=== PATIENT | female | born 1935 | race Caucasian/White ===

== ENCOUNTER → 2023-09-23 12:42 | Outpatient (REF) | payer OTHER, SELFPAY | LOC: HWRAD 12:42 | PROVIDERS: ATTENDING PHYSICIAN Student in an Organized Health Care Education/Training Program; FAMILY PHYSICIAN Family Medicine | DX: M25.561 Pain in right knee (principal) | CPT/HCPCS: 73700 ==

== ENCOUNTER 2023-12-29 11:59 | Inpatient (IN) | payer OTHER, SELFPAY ==
[2023-12-29] VITALS (10 sets, daily range): BP systolic 138–180; BP diastolic 57–88
[2023-12-29 10:14] LABS: Glucose - Point of Care 186 mg/dl (70-99)
--- NOTE | 2023-12-29 10:20 | ED.CVA ---
History of Present Illness
General
Chief Complaint: CVA/TIA Symptoms
Source: patient and ambulance crew
Time Seen by Provider: 12/29/23 10:19
Onset of Stroke Symptoms
Onset of symptoms known: Yes
Date of onset of symptoms: 12/29/23
Time of onset of symptoms: 09:30
History of Present Illness
History of Present Illness:
This patient is an 88-year-old female who, as per medics, was noted to be her normal self this morning. Then, just prior to 9:30 AM, patient was noted to have a fall. Medics states she did not strike her head but did suffer a skin abrasion to the
elbow. However, after the fall, patient was noted by to have difficulty speaking and weakness, and medics were called. Upon their arrival, patient was noted to be slightly drowsy associated with difficulty speaking and slurred speech.
They also noted bilateral leg weakness and arm weakness left greater than right. Upon arrival here, patient is awake but drowsy. She denies any specific complaints but overall is a poor historian. In review of medication list, patient takes
aspirin but otherwise no anticoagulation/antiplatelet agents. She does have a history of a CVA in the past as well as seizure disorder for which she takes Keppra and Lamictal. Upon my evaluation, neurologist also at bedside given patient a stroke
alert.
Past History
Past History
ED Past Medical History: GERD, Seizures (On Kepra) and Other (Scoliosis)
ED Past Surgical History: Appendectomy, Gynecological (Hysterectomy) and Orthopedic
Social History
Tobacco: Non-smoker
Alcohol: None
Drug: None
Living: fpc
Phy Exam
Physical Exam
Physical Exam:
GENERAL: awake but sl drowsy, in no apparent distress
EYE: pupils equal and reactive
NECK: Supple, no significant adenopathy.
ENT: o/p clr, mmm.
CARDIAC: Regular rate and rhythm .
LUNGS: Clear breath sounds bilaterally, no acute respiratory distress, no wheezes/rales/rhonchi
ABDOMEN: Soft, without focal tenderness, no r/g
NEUROLOGICAL: awake but drowsy, no visual field cut, no facial droop, does not perform f t n, general extrem ity weakness (nonfocal), speech clear but speaks in a very soft voice
SKIN: Warm and dry, skin intact.
MUSCULOSKELETAL: No edema, well perfused.
PSYCH: Normal and appropriate interaction.
Scores
NIH Stroke Score
Level of Consciousness: 0 - Alert
LOC Questions: 2-Neither correct
LOC Commands: 0-Performs both correctly
Best Horizontal Gaze: 0-Normal
Visual Dorantes: 0=Normal, no visual loss
Facial Palsy: 0=Normal, symmetrical
Motor - Right Arm: 1=Drift < 10 seconds
Motor - Left Arm: 1=Drift < 10 seconds
Motor - Right Le-Drift < 5 seconds
Motor - Left Le-Drift < 5 seconds
Limb Ataxia: 0-Absent
Sensation: 0-Normal
Best Language: 0-No aphasia
Dysarthria: 0-Normal
Extinction and Inattention: 0-No abnormality
Total Score:: 6
Course
Orders/Labs/Results
Orders:
Orders
12/29/23 10:16
Electrocardiogram (*1) Urgent
Reason for Study: TIA/Stroke
CT Head W/o Cont STROKE ALERT Stat
Comment:
Reason For Exam: stroke alert
EKG- Treatment ONCE
12/29/23 10:20
CT Head/Neck Ang STROKE ALERT Urgent
Comment:
Reason For Exam: weakness
Cardiac Monitoring- Treatment ONCE
Pulse Ox/cont/shift [RESP] Stat
Quantity: 1
12/29/23 10:21
EEG Routine Routine
Neurology Consult:: DR. LAWRENCE
12/29/23 10:46
Clopidogrel Bisulfate [Plavix] 300 mg PO NOW STA
12/29/23 10:55
Echo 2D MMode Color/Doppler Routine
Reason for Study: Thrombotic source for stroke-like sxs
NIH Stroke Scale As Directed
Directions: Per protocol
Neurological Checks As Directed
Frequency: Per unit guidelines
12/29/23 10:56
Occupational Therapy Consult [Ot Eval And Treat] Routine
Physical Therapy Consult [Pt Eval And Treat] Routine
Activity Level: Out of Bed- Chair
Speech Therapy Eval & Treat Routine
Treatment: Aphasia
12/29/23 10:58
Complete Blood Count/No Diff Urgent
Comprehensive Metabolic Panel Urgent
Troponin I Urgent
12/29/23 11:43
Admit/Transfer Patient As Directed
Co-Sign Provider:
Level of Care: Inpatient admission
Assign to:: Telemetry
Physician / Group: Hospitalist
Diagnosis: Stroke
Reason for Telemetry: CVA/TIA
Date to Stop Telemetry: 01/01/24
Time to Stop Telemetry: 11:00
Reason for Hospitalization: .
Expected length of stay greater than two midnights?: Yes
ELOS- Estimated Length of Stay in days: 3
I certify the patient meets the requirements for IP care: Yes
12/29/23 11:45
Code Status As Directed
Resuscitation Status: Do not resuscitate
Reached after discussion with pt or family/Healthcare POA: Yes
DNR Bracelet Application ONCE
12/29/23 15:07
Famotidine [Pepcid] 20 mg PO DAILYPRN PRN
12/29/23 15:07
Consult Neurology [NEUROLOGY CONSULT] Routine
Consulting Provider: Danny Ward
Was physician already notified: Yes
Reason for consult: Stroke
DX Deep Vein Thrombosis Video Routine
12/29/23 20:00
Heparin 5,000 units SC Q12
06/24/24 22:00
Atorvastatin [Lipitor] 20 mg PO HS
lamotrigine See Dose Instructions PO HS
12/30/23 08:00
Aspirin Low Dose EC [Aspir Low (Enteric Coated)] 81 mg PO DAILY
Clopidogrel Bisulfate [Plavix] 75 mg PO DAILY
Furosemide [Lasix] 20 mg PO DAILY
12/30/23 08:16
Cardiovascular Evaluation IN AM
Glycohemoglobin (HgbA1c) IN AM
12/30/23 10:58
Lamotrigine (Lamictal) [S] Urgent
Comment: ADD ON
01/01/24 11:00
DC Protocol for Telemetry ONCE
Abnormal Lab Results
12/29/23 12/29/23
10:13 10:58
RBC 2.61 L 10^6/uL
(4.20-5.40)
Hgb 9.3 L g/dL
(12.0-16.0)
Hct 26.9 L %
(37.0-47.0)
MCV 103.1 H fL
(81.0-99.0)
MCH 35.6 H pg
(27.0-31.0)
RDW 16.2 H %
(11.5-14.5)
Creatinine 0.4 L mg/dL
(0.6-1.0)
Glucose 154 H mg/dl
(70-99)
Total Bilirubin 1.7 H mg/dl
(0.2-1.3)
AST 40 H U/L
(14-36)
Total Protein 5.7 L g/dl
(6.3-8.2)
POC Glucose 186 H mg/dl
(70-99)
12/29/23 10:58
12/29/23 10:58
Vital Signs
Initial and Last Documented VS:
Initial Vital Signs
BP
172/74
12/29/23 10:12
Last Documented Vital Signs
Temp Pulse Resp BP Pulse Ox
97.8 F 74 20 106/46 93
12/31/23 11:59 12/31/23 11:59 12/31/23 11:59 12/31/23 11:59 12/31/23 11:59
*Critical Care Note
Total Time (30-74mins, 75-104mins- exclusive of procedures): 30
Update Note
Update Note:
Patient presents to the Emergency Department with ____status post fall
Number and Complexity of Problems Addressed at the Encounter
� Chronic conditions affecting care:
� Acute Exacerbation and/or Progression of Chronic Illness:
� Differential Diagnosis includes: But not limited to TIA, stroke, seizure, electrolyte disorder, etc.
Amount and/or Complexity of Data to be Reviewed and Analyzed
� I performed an independent evaluation of and my interpretation is:
EKG:
CT:Has a 1 cm probably subacute non-hemorrhagic lacunar infarct in the external capsule and putamen on the left
Xrays:
Laboratory Studies:
Other:
� Review of other/old records reveals: Patient was admitted March [address] and at [address] showed a subacute left frontal parietal lobe infarct without hemorrhage. Carotid ultrasound at that time was unremarkable for
stenosis as well as her 2D echocardiogram that did not show significant wall motion abnormality EF was 61%.
� Clinical information was obtained by an independent historian: EMS, awaiting arrival, daughter who is now at bedside
� Prescriptions/Medications Considered but not given:
� Further testing considered but not performed:
Risk of Complications and/or Morbidity or Mortality of Patient Management
� Social determinants of health affecting care:
� Discussion with other providers (PCP, Hospitalists, Consultants, etc):
� Escalation of care including admission/observation vs risk of discharge considered: 10:26 AM in discussion with neurology patient unlikely/not a TNK candidate given lack of focality to her symptoms. CTA ordered. I do suspect
that patient might have suffered a strike to the head given the superficial abrasion noted on the right infraorbital area.
1047am subacute infarct noted on CT. Case again d/w neuro (Dr Levy), confirms pt not a tnk canidate, recommends 300 mg plavix and we will admit, tiger text to hospitaliist. Will monitor bp closely and treat accordingly only for sbp >180.
1228 patient noted to be having intermittent twitching of left side of face� This is unusual for her. Daughter who is at bedside states that she has never witnessed her having a seizure so she is unsure what her typical seizure is like. Concerned
that this may represent seizure activity, 1 of Ativan ordered. Hospitalist aware
ED Attending Note
-
Portions of this chart may have been created with voice recognition software.� Occasional wrong word or��sound alike� substitutions may have occurred due to the inherent limitations of voice recognition software.
Discharge Plan
Departure
Patient Disposition: Admit
Date of Disposition: 12/29/23
Time of Disposition: 10:50
Admit to: Telemetry
Presentation/result/management discussed w/ accepting MD/DO: Hospitalist
Condition: Fair
Discharge Problem:
cva
Interventions
Interventions:
*Risk Screen - Suicide Last Done: 12/29/23 11:00
*General Assessment Last Done: 12/29/23 11:00
*Neglect/Abuse Screening Last Done: 12/29/23 11:00
ED- Fall Risk Assessment Last Done: 12/29/23 10:15
*ED COVID-19 Vaccine History Last Done: 12/29/23 10:57
*Nursing Disposition Last Done: 12/29/23 15:05
ED- Pulmonary Assessment Last Done: 12/29/23 11:30
ED- Neurological Assessment Last Done: 12/29/23 10:30
ED- Cardiac Assessment Last Done: 12/29/23 10:15
ED Swallowing Screen Last Done: 12/29/23 11:15
Discharge Date and Time
Discharge Date/Time: 12/29/23 15:05
--- NOTE | 2023-12-29 10:21 | CON.NEURO4 ---
Consultation - Neurology 4
-
CONSULTING PHYSICIAN: Shirley Ward
REFERRING PHYSICIAN: ER
DICTATED BY: Shirley Ward
DATE/TIME OF REQUEST: 12/29/23
DATE/TIME OF CONSULTATION: 12/29/23
Reason for Consultation: Stroke alert, fall, confused mental status and generalized weakness
History of Present Illness:
Patient is an 88 year old woman with history of epilepsy, ischemic stroke, cognitive impairment presenting to hospital as stroke alert after a fall showing abnormal mental status and generalized weakness. Patient has a history of suspected
ischemic infarction after hospitalization in March 2023, was treated with aspirin and clopidogrel for 21 days following this. She is on aspirin 81 mg daily at home. For seizures she has been on Lamotrigine as well as Levetiracetam.
This morning patient had woken up in her usual state of health and around 930AM had had a fall. Had abrasion of right arm and also small abrasion near right eyebrow. After this she showed drowsiness, abnormal speech, generalized weakness.
Patient underwent CT and CTA of the had and neck in ED, was not given IV thrombolytics.
In ED patient developed change in mental status to the point of no longer obeying commands along with subtle small amplitude movements of the face bilaterally concerning for potential seizure. She was given 1 mg IV Lorazepam and 2000 mg IV
Levetiracetam.
Past Medical History: Epilepsy, mild cognitive impairment, ischemic stroke, GERD, osteoporosis, iron deficiency anemia, osteoporosis, PVD, IBS, scoliosis,
Surgical History: HAILY/BSO, cholecystectomy, appendectomy, R TSA, R ISHAN, R shoulder surgery
Family History: Non-contributory
Social History: Patient living at home with her , no tobacco or alcohol
Review of Symptoms:
Unable to obtain with patient's mental status
Physical Exam:
Elderly woman appears chronically ill and frail appearing, right forehead abrasion and abrasion on right eyebrow, cervical spine with no abnormality to palpation, oropharynx clear, no neck masses, heart rate regular, breathing unlabored, abdomen
soft non tender, no lower extremity edema or rashes seen
Neurologic Examination:
MS: Patient is awake, drowsy, she says her name and 's name, will obey simple commands consistently, sticks out tongue, wiggles feet, does not show 2 fingers or thumbs up to command. Patient has eyes open and tracks throughout the room.
CN: Pupils are 3 mm equal round and reactive to light bilaterally, visual salvador intact to confrontation bilaterally, smile is symmetric, voice is weak and soft and mildly dysarthric, tongue midline
Motor/sensory examination: Diffuse symmetric weakness, patient shows downward drift of the arms in a symmetric manner with arms held above her head in the air. Legs show downward drift bilaterally and withdraw in a symmetric manner 3/5 hip flexion
efforts with noxious stimulation to the feet.
Reflexes absent throughout, babinski negative
No ataxia with arms held above and in front of her.
Gait exam deferred
Neuro Imaging: CT head non contrast no acute findings, no early ischemic or acute infarcts, no hemorrhage, no masses or edema, no hydrocephalus
CTA head and neck No large vessel occlusion or intracranial stenosis, no significant carotid stenosis.
Impressions
1. Sudden change in mental status after fall. Has some subtle activity with confusion and small jerks of face on exam. Has known epilepsy. Possibly encephalopathy from concussion or provoked seizure after a fall as cause for mental status
changes. Clinical history and exam I feel are less supportive of acute stroke.
2. History of epilepsy
3. History of possible ischemic stroke of left parietal lobe, history of previous TIA
4.
Patient has the following risk factors for their symptoms: Fall, history of stroke,
IV Tenecteplase/IAT candidacy: Patient without focal deficits, more a picture of confusion and generalized weakness and as such the risks of TNK are felt to outweigh the benefits, clinical history and exam not highly suggestive of stroke to me but
this remains possibility, no LVO on CTA would not be IAT candidate.
Recommendations:
1. Would place on continuos EEG monitoring, no findings of status epilepticus but with confused and poor mental status would be best to have on continuous EEG monitoring for detection of any sub-clinical seizure activity
2. Increase Levetiracetam to 750 mg q12hr
3. Would continue on Lamotrigine 250 mg daily (for the future consider taking in morning to avoid insomnia) if unable to take my mouth can consider substituting Lacosamide versus NG tube administration
4. Continue aspirin 81 mg daily alone
5. Follow mental status
6. No further brain imaging planned for time being
Will follow
Discussed patient care with: Patient, Dr Damico in ER
[2023-12-29 11:04] LABS: Hematocrit 26.9 % (37.0-47.0); Hemoglobin 9.3 g/dL (12.0-16.0); Mean Corp Hgb Conc. 34.6 g/dL (33.0-37.0); Mean Corpuscular Hgb 35.6 pg (27.0-31.0); Mean Corpuscular Volume 103.1 fL (81.0-99.0); Mean Platelet Volume 9.8 fL (7.4-10.4); Platelet Count 252 10^3/uL (130-400); Red Blood Cell Count 2.61 10^6/uL (4.20-5.40); Red Cell Dist. Width 16.2 % (11.5-14.5); White Blood Cell Count 5.6 10^3/uL (4.8-10.8)
[2023-12-29] MEDS: PLAVIX 300 MG PO (11:27)
[2023-12-29 11:28] LABS: ALT (SGPT) 28 U/L (0-35); AST (SGOT) 40 U/L (14-36); Albumin 3.9 g/dl (3.5-5.0); Alkaline Phosphatase 74 U/L (38-126); Blood Urea Nitrogen 13 mg/dl (7-17); Calcium 8.8 mg/dl (8.4-10.2); Carbon Dioxide 28 mmol/L (22-30); Chloride 106 mmol/L (98-107); Glucose 154 mg/dl (70-99); Potassium 3.5 mmol/L (3.5-5.1); Sodium 140 mmol/L (135-145); Total Bilirubin 1.7 mg/dl (0.2-1.3); Total Protein 5.7 g/dl (6.3-8.2); eGFR > 60.00
[2023-12-29 11:35] LABS: Troponin I < 0.012 ng/ml
--- NOTE | 2023-12-29 11:42 | HPS.HSE ---
Family Physician
-
Family Physician: NO INTERVIEW UNKNOWN
Chief Complaint
-
Fall with difficulty speaking and weakness this morning at home
History of Present Illness
88 years old came in from home. She lives in in-law suite with her daughter. Apparently patient had a fall and was noted to have difficulty speaking and weakness. EMT arrived and brought the patient to the hospital. Patient was noted to be
drowsy on arrival. Imaging study of the head did not show intracranial bleeding but showed possible subacute nonhemorrhagic lacunar infarct in the left external capsule and putamen.
Patient was given aspirin and Plavix. CT angiogram did not show acute occlusion.
Per daughter, patient was home and at her baseline in last few days. No history of fever or chills.
In the emergency room, I saw the patient in ER 29, she was noted to have confusion, not answering question and face twitching. Discussed with ER doctor, will give start IV Ativan for possible seizure. Patient has underlying seizure and did not
take her medications this morning or last night
Medical History
Past Medical History
Past Medical History: Reports Other ( History of CVA, abnormal gait, essential hypertension, seizure disorder, migraine, GERD, peripheral vascular disease, irritable bowel syndrome, osteoporosis.)
Past Surgical History: Reports Other (No recent major surgery)
Social History
Unable to obtain full social history at this time due to: Patient Non-verbal
Family History
Family History: Not pertinent
Allergies / Home Medications
Allergies reflects when Allergies were last updated in [facility].
Home Medications with original date entered in [facility]
Allergy/Medication List:
Allergies
Allergy/AdvReac Type Severity Reaction Status Date / Time
Penicillins Allergy Severe Unknown Verified 12/29/23 11:41
bacitracin Allergy Unknown Unknown Verified 12/29/23 11:41
neomycin Allergy Unknown Unknown Verified 12/29/23 11:41
polymyxin B Allergy Unknown Unknown Verified 12/29/23 11:41
povidone-iodine Allergy Unknown Unknown Verified 12/29/23 11:41
soap Allergy Unknown Unknown Verified 12/29/23 11:41
sulfamethoxazole Allergy Unknown Unknown Verified 12/29/23 11:41
tetracycline Allergy Unknown Unknown Verified 12/29/23 11:41
trimethoprim Allergy Unknown Unknown Verified 12/29/23 11:41
erythromycin base Allergy Unknown Verified 12/29/23 11:41
Gramicidins Allergy Unknown Verified 12/29/23 11:41
iodine Allergy Unknown Verified 12/29/23 11:41
Sulfa (Sulfonamide Allergy Unknown Verified 12/29/23 11:41
Antibiotics)
Home Medications
lamotrigine 250 mg tablet,extended release 24 hr 250 mg PO HS Seizures 03/25/23
levetiracetam 250 mg tablet 250 mg PO BID Seizures 03/25/23
cetirizine 10 mg tablet (Zyrtec) 10 mg PO DAILY PRN Allergies 04/02/23
atorvastatin 20 mg tablet 20 mg PO HS High Cholesterol 04/03/23
Tums 2 tab PO BIDPRN PRN gerd 12/29/23
acetaminophen 500 mg tablet (Tylenol Extra Strength) 500 - 1,000 mg PO DAILYPRN PRN mild pain 12/29/23
aspirin 81 mg tablet,delayed release 81 mg PO DAILY Blood Clot Prevention/Tx 12/29/23
cholecalciferol (vitamin D3) 25 mcg (1,000 unit) tablet 25 mcg PO DAILY Supplement 12/29/23
cyanocobalamin (vitamin B-12) 1,000 mcg tablet 1,000 mcg PO SUTUWEFR@2200 Supplement 12/29/23
famotidine 20 mg tablet (Pepcid AC) 20 mg PO DAILY PRN gerd 12/29/23
ferrous sulfate 325 mg (65 mg iron) tablet 325 mg PO SUTUWEFR@0800 Supplement 12/29/23
furosemide 20 mg tablet 20 mg PO DAILY Fluid Retention/Swelling 12/29/23
peg 400-propylene glycol (PF) 0.4 %-0.3 % eye drops in a dropperette (Systane (PF)) 2 p BOTH EYES DAILYPRN PRN dry eyes 12/29/23
Review of Systems
-
Unable to obtain full review of systems at this time due to: Patient Non-verbal
Physical Exam
Vital Signs
Vital Signs
Pulse Resp BP Pulse Ox
83 21 172/74 98
12/29/23 10:15 12/29/23 10:15 12/29/23 10:12 12/29/23 11:30
Physical Exam
HEENT: Other (Bruising noted on the right side of the forehead)
Respiratory: Clear
Cardiac: S1/S2
GI: Soft, Non Tender and Non Distended
Genito-urinary: No costovertebral tender
Musculoskeletal: No Cyanosis
Skin: No Jaundice
Neuro: Awake and Other (She did not follow commands. Nonverbal at time of my examination)
Psych: Confused
Laboratory Results
-
12/29/23 10:58
12/29/23 10:58
Laboratory Results
Total Bilirubin 1.7 mg/dl (0.2-1.3) H 12/29/23 10:58
AST 40 U/L (14-36) H 12/29/23 10:58
ALT 28 U/L (0-35) 12/29/23 10:58
Alkaline Phosphatase 74 U/L (38-126) 12/29/23 10:58
Troponin I < 0.012 ng/ml 12/29/23 10:58
Impression/Plan
-
88-year-old female was brought in from home after having ambulatory dysfunction and weakness noticed at home
# Sudden onset of ambulatory dysfunction, weakness and change in mental status
Differential diagnoses include acute CVA/stroke and possible resultant seizure activity
Patient had fall at home was noticed to have speech problem and weakness in her lower extremities. Upon arrival to the emergency room, she was noticed to become nonverbal, confusion and face twitching
Scan of the head showed subacute nonhemorrhagic lacunar infarct in the left external capsule/Putamen
Angiogram of the head and neck, no acute occlusion
Admit the patient to the hospital/telemetry floor
Seizure precaution
Start IV benzodiazepine to break the seizure activity
IV Keppra, adjust the dose.
Continue Lamictal
Cardiac monitoring
PT/OT evaluation with speech evaluation
Continue with antiplatelet therapy and statin therapy.
No metabolic derangement. No fever. No leukocytosis. No history of fever last a few days or headaches. Per daughter, patient was doing well at home in the last few weeks. Ambulating with a walker.
Order EEG. Further imaging studies will be considered
Discussed with neurology, appreciate input
# Right forehead skin abrasion. No open wound
# Underweight
# History of seizure disorder
#GERD, continue with as needed famotidine
#History of peripheral vascular disease
#History of irritable bowel syndrome
#History of ambulatory dysfunction, eventual PT/OT
# History of anemia of chronic disease. Hemoglobin 9.3 on admission
On oral iron On vitamin B12
# Essential hypertension.
Permissive hypertension.
Monitor blood pressure and add IV hydralazine with parameters
# CODE STATUS, DNR. Confirmed with daughter at bedside
Total time spent to see the patient on the floor, examine the patient, review data and lab results, discuss treatment plan with patient, ER doctor, neurologist, nursing staff around 75 minutes
[2023-12-29] MEDS: ATIVAN 1 MG IV (12:37)
[2023-12-29] MEDS: KEPPRA 2000 MG IV (13:24)
--- NOTE | 2023-12-29 14:08 | EEG.RPT ---
Electroencephalogram Report
Recording
Date of EE12/29/23
Type of EEG: Routine
Length of EEG recordin minutes
Done with Video Recording: Yes
Patient Status: Inpatient
Recording Conditions: Awake and Drowsy
Hyperventilation Performed: No
Photic Stimulation Performed: Yes
Report
LESS THAN 1 HOUR EEG INTERPRETATION:
Moderately abnormal EEG significant for bifrontal interictal epileptiform discharges. No seizures seen
CLINICAL CORRELATION:
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 No seizures seen on this study.
Clinical correlation is advised.
METHODS:
A 21 channel digitized electroencephalogram (EEG) was performed using the 10/20 international system of electrode placement and one-lead of ECG recorded. Study lasted 28 minutes.
ELECTROENCEPHALOGRAPHER IMPRESSION(S):
Quality of study
Good
Background
Medium amplitude background of theta and alpha maximum frequencies
Posterior dominant alpha rhythm of 8-9 hz seen
There were no significant asymmetries of background activity noted.
Sleep
Drowsiness present
Photic Stimulation
No activation
ECG
Normal sinus rhythm
Abnormalities
Moderately frequent bifrontal sharp waves seen representing interictal epileptiform discharges are seen. No electrographic or clinical seizures seen.
--- NOTE | 2023-12-29 15:09 | EDRN ---
Patient taken to room 414-1 on stretcher on monitor with EEG in place by medical technologist clinical.
--- NOTE | 2023-12-29 16:33 | PTOTSP ---
Speech Therapy Assessment
Oral/pharyngeal swallow deemed within functional limits without overt signs of aspiration.
Recommend
1. Regular solids and thin liquids
2. Meds with liquid as tolerated.
3. Upright with meals and may need set up and assit during suspected postictal state.
4. ST will follow and complete cognitive communication assesment as indicated. Previous cogntive communication deficits noted when seen during Mar 2023 admission.
[2023-12-29] MEDS: HEPARIN 5000 UNITS SC (23:03)
[2023-12-29] MEDS: LIPITOR 20 MG PO (23:04)
[2023-12-30] VITALS (8 sets, daily range): BP systolic 131–158; BP diastolic 52–70; PULSE 84–85; O2SAT 94
--- NOTE | 2023-12-30 07:24 | EEGC.RPT ---
Continuous EEG Report
Recording
Start Date of Data Reviewed: 12/29/23
Start Time of Data Reviewed: 14:07
End Date of Data Reviewed: 12/30/23
End Time of Data Reviewed: 07:24
Type of EEG: Continuous
Study Sequence: Initiation of Study
Electrocardiogram: Unremarkable
Report
24 HOUR CONTINUOUS EEG REPORT
24 HOUR EEG INTERPRETATION:
Moderately abnormal EEG significant for bifrontal interictal epileptiform discharges. No seizures seen
CLINICAL CORRELATION:
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 No seizures seen on this study.
Clinical correlation is advised.
METHODS:
A 21 channel digitized electroencephalogram (EEG) was performed at the bedside in the intensive care unit.� The 10/20 international system of electrode placement was used.� ECG was monitored.� Video was recorded. Total duration 15 hours 48 minutes
ELECTROENCEPHALOGRAPHER IMPRESSION(S):
Quality
Good, becoming degraded by the end of the study
Background
Medium amplitude mix of mostly alpha and theta activities
Posterior dominant rhythm of 9 hz seen which attenuates with eye opening
No background asymmetry seen
Sleep
Drowsiness demonstrated by attenuation of the background rhythm
Stage I sleep was characterized by vertex waves
ECG:
Normal sinus rhythm
Abnormal EEG activity:
Moderately frequent bifrontally located sharp waves representing interictal epileptiform discharges. No clinical or electrographic seizures were seen.
--- NOTE | 2023-12-30 07:28 | W.PN.NEURO.1 ---
Today's Communication / Plan
-
-Continue lamotrigine at home dose
-Will make a small increase in her home dosing of levetiracetam to help prevent side effects, would lower the increased dose that had placed her on initially in the ER to help stop seizure activity
--- Levetiracetam 250 mg in the morning and 500 mg at night
Okay to come off continuous EEG
Monitor clinically and follow basic blood work, I have added on a Lamotrigine level
Neuro Assessment/Plan
Assessment
88-year-old woman with a past medical history of epilepsy, previous ischemic stroke, hyperlipidemia, GERD, peripheral vascular disease presented to hospital after a fall and had generalized weakness and confusion with speech difficulty following
this.
Patient developed subtle signs suggestive of possible seizure activity with face twitching and poor responsiveness significant confusion and speech difficulty while in the ER that I witnessed 12/28. She was given 1 dose IV lorazepam and loading dose
of IV levetiracetam.
EEG studies showed EEG abnormalities supportive of definite underlying epilepsy, there were no clinical or electrographic seizures on her continuous EEG studies.
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 EEG showing bifrontal eplleptiform discharges may reflect single seizure focus in midline frontal lobe versus less likely generalized epilepsy
given very rare for generalized epilepsy to start at such a late age
Patient thankfully has markedly improved mental status this morning 12/29.
Patient may have had a fall and mild concussion leading to a breakthrough seizure or alternatively may have had a spontaneous seizure leading to her fall and confusion. Do not feel patient is likely to have had a new ischemic stroke. Patient
reports compliance with antiseizure medications recently.
Subjective/Objective
Subjective Data
Date of Service: December 30, 2023
No acute events overnight, no seizures on continuous EEG, patient doesn't remember much of yesterday, today feels pretty fine, no complaints, reports compliance with seizure medications
Objective Data
Vital Signs
Temp Pulse Resp BP Pulse Ox
98.1 F 83 16 158/66 96
12/30/23 03:51 12/30/23 03:51 12/30/23 03:51 12/30/23 03:51 12/30/23 03:51
Lab Results
12/29/23 10:58
12/29/23 10:58
Sodium 140 mmol/L (135-145) 12/29/23 10:58
Potassium 3.5 mmol/L (3.5-5.1) 12/29/23 10:58
BUN 13 mg/dl (7-17) 12/29/23 10:58
Glucose 154 mg/dl (70-99) H 12/29/23 10:58
Calcium 8.8 mg/dl (8.4-10.2) 12/29/23 10:58
Patient Allergies
bacitracin Allergy (Verified 12/29/23 18:51)
Unknown
erythromycin base Allergy (Verified 12/29/23 11:41)
Unknown
Gramicidins Allergy (Verified 12/29/23 11:41)
Unknown
iodine Allergy (Verified 12/29/23 11:41)
Unknown
neomycin Allergy (Verified 12/29/23 18:51)
Unknown
Penicillins Allergy (Verified 12/29/23 18:51)
patient states she gets mouth swelling with penicillin
polymyxin B Allergy (Verified 12/29/23 18:51)
Unknown
povidone-iodine Allergy (Verified 12/29/23 18:51)
Unknown
soap Allergy (Verified 12/29/23 18:51)
Unknown
Sulfa (Sulfonamide Antibiotics) Allergy (Verified 12/29/23 11:41)
Unknown
sulfamethoxazole Allergy (Verified 12/29/23 18:51)
Unknown
tetracycline Allergy (Verified 12/29/23 18:51)
Unknown
trimethoprim Allergy (Verified 12/29/23 18:51)
Unknown
Review of Systems
-
History Source: Patient
All other systems: Reviewed and negative
Constitutional: No Symptoms
EENT: No Symptoms Reported
Respiratory: No Symptoms
Cardiac: No Symptoms
Abdomen/GI: No Symptoms
Genitourinary: No Symptoms
Musculoskeletal: No Symptoms
Skin: No Symptoms
Neuro: See existing Neuro Note
Endocrine: No Symptoms
Hematologic / Lymphatic: No Symptoms
Allergy / Immunology: No Symptoms
Physical Exam
-
General: Comfortable and Other (Thin appearing)
Eyes: No Ptosis
HEENT: Normocephalic
Neck: No Bruits Bilaterally
Respiratory: Clear to Auscultation
Cardiac: Regular Rhythm
GI: Normal Bowel Sounds
Skin: Unremarkable
Extremities: No Clubbing
Psych: Unremarkable
Extended Neurological Exam
Mood & Affect: Mood Unremarkable and Affect Unremarkable
Attention Span & Concentration: Awake, Alert, Interactive and Other (Conversational and appropriate, able to give social history, where she lives, talks about her , understands in hospital, doesn't remember much of yesterday)
Memory: Unremarkable
Tremor: Hand Tremor Absent
Involuntary Movement: None
Speech: Quality Unremarkable, Quantity Unremarkable and Rate of Production Unremarkable; Negative Expressive Aphasia, Receptive Aphasia or Dysarthric
Cranial Nerve VII: Facial Symmetry: Normal Facial Symmetry
Muscle Strength, Overall: Full Throughout and Other (No drift, 5/5 arm flexion bilaterally)
Touch Sensation: Unremarkable
Data Reviewed
-
CT Head: Report Reviewed and Image Reviewed
EEG: Report Reviewed
[2023-12-30] MEDS: ASPIR LOW (ENTERIC COATED) 81 MG PO (08:17)
[2023-12-30] MEDS: LASIX 20 MG PO (08:18)
[2023-12-30] MEDS: HEPARIN 5000 UNITS SC ×2 (08:18→19:47)
[2023-12-30] MEDS: KEPPRA 750 MG PO (08:27)
[2023-12-30 08:52] LABS: HDL Cholesterol 56 mg/dl; LDL Cholesterol, Calculated 36 mg/dl; Total Cholesterol 104 mg/dl (50-199); Triglyceride 62 mg/dl (10-149); Very Low Density Lipoprotein 12 mg/dl (0-30)
--- NOTE | 2023-12-30 09:40 | W.PN.HOSP.TC ---
Today's Communication/Plan
-
Possible dc
Assessment / Plan
Assessment / Plan
Physical Exam
General: not in distress
HEENT: Moist MM. Pupils are reactive to light.
Respiratory: Clear
Cardiac: S1/S2
GI: Soft, Non Tender and Non Distended
Genito-urinary: No costovertebral tender
Musculoskeletal: No Cyanosis
Skin: No Jaundice
Neuro: Awake , oriented to self and surroundings, followed commands, no slurred speech.
Psych: calm, pleasant.
88-year-old female was brought in from home after having ambulatory dysfunction and weakness noticed at home
# Change in mental status due to seizure
Patient had fall at home was noticed to have speech problem and weakness in her lower extremities. Upon arrival to the emergency room, she was noticed to become nonverbal, confusion and face twitching
Scan of the head showed cm left sided lacunar infarct, c/w old rather than subacute infarct.
Angiogram of the head and neck, no acute occlusion
status post seizure precaution
Increased Keppra to 750 mg BID.
Continue Lamictal
PT/OT evaluation with speech evaluation, ok for diet
Continue with antiplatelet therapy and statin therapy, no changes recommended.
No metabolic derangement. No fever. No leukocytosis. No history of fever last a few days or headaches. Per daughter, patient was doing well at home in the last few weeks. Ambulating with a walker.
s/p EEG, no persistent seizure activity.
Discussed with neurology, appreciate input
# Right forehead skin abrasion. No open wound
# Underweight
# History of seizure disorder
#GERD, continue with as needed famotidine
#History of peripheral vascular disease
#History of irritable bowel syndrome
#History of ambulatory dysfunction, eventual PT/OT
# History of anemia of chronic disease. Hemoglobin 9.3 on admission
On oral iron On vitamin B12
# Essential hypertension.
Permissive hypertension.
Monitor blood pressure and add IV hydralazine with parameters
# CODE STATUS, DNR. Confirmed with daughter at bedside
Total time spent to see the patient on the floor, examine the patient, review data and lab results, discuss treatment plan with patient, nursing staff around 55 minutes
Anticipated Discharge: Within 24 hours
Subjective/Interval History
-
Date of Service: December 30, 2023
She denies headache or pain in chest, abdomen
No sob
Objective Data
-
Vital Signs:
Vital Signs
Temp Pulse Resp BP Pulse Ox
98.4 F 78 21 131/62 97
12/30/23 07:52 12/30/23 07:52 12/30/23 07:52 12/30/23 07:52 12/30/23 07:52
I&O
12/29/23 12/30/23 12/31/23
06:59 06:59 06:59
Intake Total 240 / 240
Output Total 150 / 150
Balance 90 / 90
[2023-12-30 09:43] LABS: Glycohemoglobin (HgbA1c) 4.6 % (4.0-5.6)
[2023-12-30] MEDS: TYLENOL 1000 MG PO (11:04)
--- NOTE | 2023-12-30 11:12 | CM ---
Patient seen bedside, initial assessment completed. Patient currently on Medsitter. Patient reports she lives with her in an in law suite next to her daughter, Mary Beth home. Patient very soft spoken, call placed to daughter, Yanci, to
conduct initial assessment. Per daughter, patient has four steps to enter home, otherwise in one story home. Patient has had [facility] in past, currently working with [facility]. Per Daughter, patient has been to [facility] in the past. CM discussed PT/OT
recommendations of SNF, daughter agreeable, requesting referrals to [facility] and [facility]. Patient PCP Dr. Yordy Hutchinson, pharmacy [facility]. Patient has a walker at home, daughter reports patient before fall had been doing well, had been out
with daughter running errands, would like patient to return to baseline. CM will send SNF referrals, patient will need insurance auth. CM will continue to follow for all discharge planning needs.
Plan; SNF pending accepting facility, will need insurance auth, need to be off Medsitter.
[2023-12-30] MEDS: NON-FORMULARY ITEM PO (21:12)
[2023-12-30] MEDS: LIPITOR 20 MG PO (22:34)
[2023-12-30] MEDS: NON-FORMULARY ITEM 250 MG PO (22:34)
[2023-12-30] MEDS: KEPPRA 500 MG PO (22:34)
[2023-12-31 03:17] VITALS: BP 117/52
[2023-12-31 07:59] VITALS: BP 113/49
[2023-12-31] MEDS: KEPPRA 250 MG PO (09:09)
[2023-12-31] MEDS: TYLENOL 1000 MG PO ×2 (09:09→20:44)
[2023-12-31] MEDS: LASIX 20 MG PO (09:09)
[2023-12-31] MEDS: HEPARIN 5000 UNITS SC ×2 (09:09→19:24)
[2023-12-31] MEDS: ASPIR LOW (ENTERIC COATED) 81 MG PO (09:10)
--- NOTE | 2023-12-31 09:44 | W.PN.HOSP.TC ---
Today's Communication/Plan
-
Possible dc
Assessment / Plan
Assessment / Plan
Physical Exam
General: not in distress
HEENT: Moist MM. Pupils are reactive to light.
Respiratory: Clear
Cardiac: S1/S2
GI: Soft, Non Tender and Non Distended
Genito-urinary: No costovertebral tender
Musculoskeletal: No Cyanosis
Skin: No Jaundice
Neuro: Awake , oriented to self and surroundings, followed commands, no slurred speech.
Psych: calm, pleasant.
88-year-old female was brought in from home after having ambulatory dysfunction and weakness noticed at home
# Body aches
seems mostly in both shoulders
Tylenol helped, c/w PRN dose
Chest x ray, no rib fractures. Large hiatal hernia
# Change in mental status due to seizure
Patient had fall at home was noticed to have speech problem and weakness in her lower extremities. Upon arrival to the emergency room, she was noticed to become nonverbal, confusion and face twitching
Scan of the head showed cm left sided lacunar infarct, c/w old rather than subacute infarct.
Angiogram of the head and neck, no acute occlusion
status post seizure precaution
Increased Keppra to 750 mg BID.
Continue Lamictal
PT/OT evaluation with speech evaluation, ok for diet
Continue with antiplatelet therapy and statin therapy, no changes recommended.
No metabolic derangement. No fever. No leukocytosis. No history of fever last a few days or headaches. Per daughter, patient was doing well at home in the last few weeks. Ambulating with a walker.
s/p EEG, no persistent seizure activity.
Discussed with neurology, appreciate input
# Right forehead skin abrasion. No open wound
# Underweight
# History of seizure disorder
#GERD, continue with as needed famotidine
#History of peripheral vascular disease
#History of irritable bowel syndrome
#History of ambulatory dysfunction, eventual PT/OT
# History of anemia of chronic disease. Hemoglobin 9.3 on admission
On oral iron On vitamin B12
# Essential hypertension.
Stable
No headache
# CODE STATUS, DNR. Confirmed with daughter at bedside
Total time spent to see the patient on the floor, examine the patient, review data and lab results, discuss treatment plan with patient, nursing staff around 55 minutes
Anticipated Discharge: Today
Subjective/Interval History
-
Date of Service: December 31, 2023
Aches in shoulders ( all my body from shoulders down)
No chest pain
Objective Data
-
Vital Signs:
Vital Signs
Temp Pulse Resp BP Pulse Ox
97.8 F 78 20 113/49 95
12/31/23 07:59 12/31/23 07:59 12/31/23 07:59 12/31/23 07:59 12/31/23 07:59
I&O
12/30/23 12/31/23 01/01/24
06:59 06:59 06:59
Intake Total 240 / 240 480 / 480
Output Total 150 / 150
Balance 90 / 90 480 / 480
--- NOTE | 2023-12-31 10:04 | PTOTSP ---
Speech Therapy Assessment
Minor errors noted in cognitive screening with patient scoring 5 on SBT (normal range 0-4). Language and speech deemed within functional limits.
If there is concern for functional cognitive deficits, recommend neuropsychological testing upon discharge or comprehensive testing in outpatient setting with OT/ST.
Patient tolerating regular solids and thin liquids.
No further skilled ST indicated
[2023-12-31 10:49] LABS: Hematocrit 27.4 % (37.0-47.0); Mean Corp Hgb Conc. 32.8 g/dL (33.0-37.0); Mean Corpuscular Hgb 34.7 pg (27.0-31.0); Mean Corpuscular Volume 105.8 fL (81.0-99.0); Mean Platelet Volume 10.1 fL (7.4-10.4); Platelet Count 242 10^3/uL (130-400); Red Blood Cell Count 2.59 10^6/uL (4.20-5.40); Red Cell Dist. Width 16.2 % (11.5-14.5); White Blood Cell Count 9.5 10^3/uL (4.8-10.8)
[2023-12-31 11:49] LABS: ALT (SGPT) 20 U/L (0-35); AST (SGOT) 26 U/L (14-36); Albumin 3.2 g/dl (3.5-5.0); Alkaline Phosphatase 58 U/L (38-126); Blood Urea Nitrogen 12 mg/dl (7-17); Calcium 8.9 mg/dl (8.4-10.2); Carbon Dioxide 28 mmol/L (22-30); Chloride 106 mmol/L (98-107); Glucose 111 mg/dl (70-99); Potassium 3.3 mmol/L (3.5-5.1); Sodium 139 mmol/L (135-145); Total Bilirubin 1.2 mg/dl (0.2-1.3); Total Protein 4.8 g/dl (6.3-8.2); eGFR > 60.00
[2023-12-31 11:59] VITALS: BP 106/46
--- NOTE | 2023-12-31 15:14 | CM ---
Patient seen bedside with family, requesting additional referrals sent to [facility]. Patient not agreeable to [facility], awaiting to hear from [facility]. CM provided family with list of additional SNF. Patient will require insurance auth for SNF. CM
will continue to follow for all discharge planning needs.
Plan; SNF once facility found, will need auth.
[2023-12-31 15:32] VITALS: BP 111/45
[2023-12-31 15:42] LABS: Lamotrigine (Lamictal) 1.8 ug/mL (3.0-15.0)
[2023-12-31 19:36] VITALS: BP 121/56
[2023-12-31] MEDS: LIPITOR 20 MG PO (20:45)
[2023-12-31] MEDS: NON-FORMULARY ITEM 250 MG PO (20:45)
[2023-12-31] MEDS: KEPPRA 500 MG PO (20:46)
[2023-12-31 23:03] VITALS: BP 113/50
[2024-01-01] VITALS (7 sets, daily range): BP systolic 114–141; BP diastolic 50–68
--- NOTE | 2024-01-01 10:27 | CM ---
Addendum entered by Netta Trejo 01/01/24 14:03:
[facility] can accept patient tomorrow, will need auth through [facility]. [facility] aware and in agreement, requesting update tomorrow with time of patient transport ([phone]).
Plan; [facility] tomorrow, will need to call for auth.
Original Note:
Patient seen bedside, reports she does not want to go to [facility] or [facility], requesting a phone call to briana Pete to discuss alternative referrals, requesting referral to [facility], sent in [facility]. Patient will need updated PT/OT notes for
auth once accepted at [facility]. CM will continue to follow for all discharge planning needs.
Plan; SNF pending accepting facility, will need auth.
[2024-01-01] MEDS: KEPPRA 250 MG PO (11:04)
[2024-01-01] MEDS: HEPARIN 5000 UNITS SC ×2 (11:04→19:38)
[2024-01-01] MEDS: ASPIR LOW (ENTERIC COATED) 81 MG PO (11:06)
[2024-01-01] MEDS: LASIX 20 MG PO (11:07)
--- NOTE | 2024-01-01 11:09 | W.PN.HOSP.TC ---
Today's Communication/Plan
-
Possible dc today
Assessment / Plan
Assessment / Plan
Physical Exam
General: not in distress
HEENT: Moist MM. Pupils are reactive to light.
Respiratory: Clear
Cardiac: S1/S2
GI: Soft, Non Tender and Non Distended
Genito-urinary: No costovertebral tender
Musculoskeletal: No Cyanosis
Skin: No Jaundice
Neuro: Awake , oriented to self and surroundings, followed commands, no slurred speech.
Psych: calm, pleasant.
88-year-old female was brought in from home after having ambulatory dysfunction and weakness noticed at home
# Body aches
seems mostly in both shoulders
Tylenol helped, c/w PRN dose
Chest x ray, no rib fractures. Large hiatal hernia
# Change in mental status due to seizure
Patient had fall at home was noticed to have speech problem and weakness in her lower extremities. Upon arrival to the emergency room, she was noticed to become nonverbal, confusion and face twitching
Scan of the head showed cm left sided lacunar infarct, c/w old rather than subacute infarct.
Angiogram of the head and neck, no acute occlusion
status post seizure precaution
Increased Keppra to 750 mg BID.
Continue Lamictal
PT/OT evaluation with speech evaluation, ok for diet
Continue with antiplatelet therapy and statin therapy, no changes recommended.
No metabolic derangement. No fever. No leukocytosis. No history of fever last a few days or headaches. Per daughter, patient was doing well at home in the last few weeks. Ambulating with a walker.
s/p EEG, no persistent seizure activity.
Discussed with neurology, appreciate input
# Hypokalemia, replace
# Right forehead skin abrasion. No open wound
# Underweight
# History of seizure disorder
#GERD, continue with as needed famotidine
#History of peripheral vascular disease
#History of irritable bowel syndrome
#History of ambulatory dysfunction, eventual PT/OT
# History of anemia of chronic disease. Hemoglobin 9.3 on admission
On oral iron On vitamin B12
# Essential hypertension.
Stable
No headache
# CODE STATUS, DNR. Confirmed with daughter at bedside
Total time spent to see the patient on the floor, examine the patient, review data and lab results, discuss treatment plan with patient, nursing staff around 55 minutes
Anticipated Discharge: Today
Subjective/Interval History
-
Date of Service: January 01, 2024
No complaints
Objective Data
-
Vital Signs:
Vital Signs
Temp Pulse Resp BP Pulse Ox
98.1 F 78 16 122/51 98
01/01/24 07:00 01/01/24 07:00 01/01/24 07:00 01/01/24 07:00 01/01/24 07:00
I&O
12/31/23 01/01/24 01/02/24
06:59 06:59 06:59
Intake Total 480 / 480 480 / 480
Balance 480 / 480 480 / 480
[2024-01-01] MEDS: KCL 20 MEQ PO (13:31)
[2024-01-01] MEDS: TYLENOL 1000 MG PO (19:37)
[2024-01-01] MEDS: KEPPRA 500 MG PO (21:31)
[2024-01-01] MEDS: LIPITOR 20 MG PO (21:31)
[2024-01-01] MEDS: NON-FORMULARY ITEM 250 MG PO (21:32)
[2024-01-02] MEDS: TYLENOL 1000 MG PO (01:32)
[2024-01-02 03:00] VITALS: BP 148/57
[2024-01-02 07:12] LABS: Hematocrit 25.7 % (37.0-47.0); Hemoglobin 8.8 g/dL (12.0-16.0); Mean Corp Hgb Conc. 34.2 g/dL (33.0-37.0); Mean Corpuscular Hgb 35.6 pg (27.0-31.0); Mean Platelet Volume 10.4 fL (7.4-10.4); Platelet Count 224 10^3/uL (130-400); Red Blood Cell Count 2.47 10^6/uL (4.20-5.40); Red Cell Dist. Width 15.9 % (11.5-14.5); White Blood Cell Count 5.4 10^3/uL (4.8-10.8)
[2024-01-02 07:50] LABS: ALT (SGPT) 28 U/L (0-35); AST (SGOT) 39 U/L (14-36); Albumin 3.2 g/dl (3.5-5.0); Alkaline Phosphatase 60 U/L (38-126); Blood Urea Nitrogen 10 mg/dl (7-17); Carbon Dioxide 30 mmol/L (22-30); Chloride 105 mmol/L (98-107); Glucose 88 mg/dl (70-99); Magnesium 1.8 mg/dl (1.6-2.3); Potassium 3.7 mmol/L (3.5-5.1); Sodium 139 mmol/L (135-145); Total Bilirubin 0.8 mg/dl (0.2-1.3); Total Protein 4.9 g/dl (6.3-8.2); eGFR > 60.00
[2024-01-02 08:08] VITALS: BP 142/61
[2024-01-02] MEDS: KEPPRA 250 MG PO (10:02)
[2024-01-02] MEDS: ASPIR LOW (ENTERIC COATED) 81 MG PO (10:02)
[2024-01-02] MEDS: HEPARIN 5000 UNITS SC (10:02)
[2024-01-02] MEDS: LASIX 20 MG PO (10:02)
[2024-01-02 10:48] VITALS: BP 149/67
--- NOTE | 2024-01-02 10:54 | W.PN.NEURO.1 ---
Addendum entered and electronically signed by Gentry Delgado MD 01/02/24 14:29:
I have reviewed the documentation and agree with the assessment and plan.
Dr. Gentry Delgado MD
Original Note:
Documented by User: Berta Meade NP 01/02/24 11:16
Today's Communication / Plan
-
.
Neuro Assessment/Plan
Assessment
88-year-old woman with a past medical history of epilepsy, previous ischemic stroke, hyperlipidemia, GERD, peripheral vascular disease presented to hospital after a fall and had generalized weakness and confusion with speech difficulty following
this.
Patient developed subtle signs suggestive of possible seizure activity with face twitching and poor responsiveness significant confusion and speech difficulty while in the ER that Neurology witnessed on 12/29/23. She was given 1 dose IV lorazepam
and loading dose of IV levetiracetam.
EEG studies showed EEG abnormalities supportive of definite underlying epilepsy, there were no clinical or electrographic seizures on her continuous EEG studies.
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 EEG showing bifrontal epileptiform discharges may reflect single seizure focus in midline frontal lobe versus less likely generalized epilepsy
given very rare for generalized epilepsy to start at such a late age.
Patient thankfully had a markedly improved mental status following this event.
Patient may have had a fall and mild concussion leading to a breakthrough seizure or alternatively may have had a spontaneous seizure leading to her fall and confusion. Do not feel patient is likely to have had a new ischemic stroke. Patient
reports compliance with antiseizure medications recently. CT head imaging demonstrates an old left external capsule/putamen ischemic infarct.
Plan
Continue Keppra usual 250mg PO AM, and increased 500mg PO HS dose. Monitor for mood changes as she has experienced this while taking 500mg BID in the past.
-Continue home lamotrigine 250mg PO HS.
-Continue aspirin 81mg daily for stroke prevention.
-Do not see a role for further neurological imaging at this point.
-Seizure precautions.
-LDL goal <70. LDL is 36. Continue home atorvastatin 20mg daily as LDL is at goal.
-Goal normoglycemia, hbA1c is 4.6.
-Neurological checks per unit guidelines.
-PT/OT/St evaluations.
-DVT prophylaxis.
-Patient should follow-up with Neurology as an outpatient, may see the [facility] or one of the physicians.
-Will sign-off. Please contact our Neurology service with any questions/concerns.
Subjective/Objective
Subjective Data
Date of Service: January 02, 2024
No acute events overnight. Patient reports mild dizziness and generalized weakness, otherwise she feels back to her normal self. She denies any headache, vision changes, speech/swallow difficulty, numbness, focal weakness, and body shaking.
Objective Data
Vital Signs
Temp Pulse Resp BP Pulse Ox
98.6 F 74 14 149/67 99
01/02/24 10:48 01/02/24 10:48 01/02/24 10:48 01/02/24 10:48 01/02/24 10:48
Lab Results
01/02/24 07:00
01/02/24 07:00
Sodium 139 mmol/L (135-145) 01/02/24 07:00
Potassium 3.7 mmol/L (3.5-5.1) 01/02/24 07:00
BUN 10 mg/dl (7-17) 01/02/24 07:00
Glucose 88 mg/dl (70-99) 01/02/24 07:00
Calcium 9.0 mg/dl (8.4-10.2) 01/02/24 07:00
LDL Cholesterol, Calc 36 mg/dl 12/30/23 08:16
Patient Allergies
bacitracin Allergy (Verified 12/29/23 18:51)
Unknown
erythromycin base Allergy (Verified 12/29/23 11:41)
Unknown
Gramicidins Allergy (Verified 12/29/23 11:41)
Unknown
iodine Allergy (Verified 12/29/23 11:41)
Unknown
neomycin Allergy (Verified 12/29/23 18:51)
Unknown
Penicillins Allergy (Verified 12/29/23 18:51)
patient states she gets mouth swelling with penicillin
polymyxin B Allergy (Verified 12/29/23 18:51)
Unknown
povidone-iodine Allergy (Verified 12/29/23 18:51)
Unknown
soap Allergy (Verified 12/29/23 18:51)
Unknown
Sulfa (Sulfonamide Antibiotics) Allergy (Verified 12/29/23 11:41)
Unknown
sulfamethoxazole Allergy (Verified 12/29/23 18:51)
Unknown
tetracycline Allergy (Verified 12/29/23 18:51)
Unknown
trimethoprim Allergy (Verified 12/29/23 18:51)
Unknown
LDL Level: <70, continue statin
Review of Systems
-
History Source: Patient
EENT: Negative Blurry Vision, Decreased Vision or Swallowing Difficulty
Respiratory: Negative Cough or Trouble Breathing
Cardiac: Negative Chest Pain or Palpitations
Abdomen/GI: Negative Nausea
Neuro: Dizzy and Weakness; Negative Headache, Numbness, Ataxia, Tremors or Speech Problem
Physical Exam
-
General: No Apparent Distress
Eyes: No Ptosis and PERRLA
HEENT: Normocephalic and Atraumatic
Neck: Full Range of Motion
Respiratory: No Dyspnea
GI: Non-distended
Extremities: No Clubbing, No Cyanosis and Edema +1
Psych: Unremarkable
Extended Neurological Exam
Mood & Affect: Mood Unremarkable and Affect Unremarkable
Attention Span & Concentration: Awake, Alert and Interactive
Memory: Unremarkable (AAOx3) and Able to Recall
Tremor: Hand Tremor Absent and Head Tremor Absent
Involuntary Movement: None
Speech: Quality Unremarkable, Quantity Unremarkable and Rate of Production Unremarkable
Cranial Nerve II: Left Eye: Pupillary Reactivity Unremarkable, Pupillary Size Unremarkable and Visual Dorantes Intact
Cranial Nerve II: Right Eye: Pupillary Reactivity Unremarkable, Pupillary Size Unremarkable and Visual Dorantes Intact
Cranial Nerves III, IV, : Extraocular Movement: Extraocular Movement Full in all Directions
Cranial Nerve V: Facial Sensation: Intact to Light Touch
Cranial Nerve VII: Facial Symmetry: Normal Facial Symmetry
Cranial Nerve VIII: Hearing: Unremarkable Hearing to Normal Conversational Volume
Cranial Nerves IX, X: Palate Movement: Palate Elevation Symmetric
Cranial Nerve XI: Shoulder Shrug: Unremarkable
Cranial Nerve XII: Tongue Protusion: Midline
Muscle Strength, Overall: Full Throughout
Muscle Bulk & Tone: Bulk Unremarkable and Tone Unremarkable
Pronator Drift: No Drift in Upper Extremities and No Drift in Lower Extremities
Touch Sensation: Double Simultaneous Stimulation Unremarkable
Coordination: [id number] Testing Unremarkable
Babinski Sign: Absent Bilaterally
Data Reviewed
-
CT-A: Report Reviewed and Image Reviewed
CT Head: Report Reviewed and Image Reviewed
EEG: Report Reviewed
Labs: Report Reviewed
Lipid Profile: Report Reviewed
HgbA1C: Report Reviewed
Reviewed with: Physician and Patient
Medications
-
Active Medications
Generic Name Dose Route Start Last Admin
Trade Name Freq PRN Reason Stop Dose Admin
Acetaminophen 1,000 mg 12/30/23 15:14 01/02/24 01:32
Acetaminophen 500 Mg Tablet PO 01/27/24 15:13 1,000 mg
Q6HPRN PRN Administration
mild to mod pain
Aspirin 81 mg 12/30/23 08:00 01/02/24 10:02
Aspirin 81 Mg (Enteric Coated) Tablet PO 01/27/24 07:59 81 mg
DAILY ERASTO Administration
Atorvastatin Calcium 20 mg 12/29/23 22:00 01/01/24 21:31
Atorvastatin (Lipitor) 20 Mg Tablet PO 01/26/24 21:59 20 mg
HS ERASTO Administration
Famotidine 20 mg 12/29/23 15:07
Famotidine 20 Mg Tablet PO 01/26/24 15:06
DAILYPRN PRN
gerd
Furosemide 20 mg 12/30/23 08:00 01/02/24 10:02
Furosemide 20 Mg Tablet PO 01/27/24 07:59 20 mg
DAILY ERASTO Administration
Heparin Sodium 5,000 units 12/29/23 20:00 01/02/24 10:02
Heparin 5,000 Units/Ml 1 Ml Vial SC 01/26/24 19:59 5,000 units
Q12 ERASTO Administration
Hydralazine HCl 10 mg 12/29/23 15:07
Hydralazine 20 Mg/Ml Vial IV 01/26/24 15:06
Q4HPRN PRN
SBP more than 180
Levetiracetam 250 mg 12/31/23 08:00 01/02/24 10:02
Levetiracetam 250 Mg Regular Release Tablet PO 01/28/24 07:59 250 mg
DAILY ERASTO Administration
Levetiracetam 500 mg 12/30/23 22:00 01/01/24 21:31
Levetiracetam Solution (500 Mg/5 Ml) Cup PO 01/27/24 21:59 500 mg
HS ERASTO Administration
Lamotrigine 250 Mg 0 mg 12/29/23 22:00 01/01/24 21:32
Tablet Extended PO 01/26/24 21:59 250 mg
Release 24hr Po Hs HS ERASTO Administration
Sodium Chloride 0 flush 12/29/23 13:00
Sodium Chloride 0.9% (Flush) Syringe IV 01/26/24 12:59
PER PROTOCOL ERASTO
Home Medications
�Medication �Instructions �Recorded
lamotrigine 250 mg tablet,extended 250 mg PO HS Seizures 03/25/23
release 24 hr
levetiracetam 250 mg tablet 250 mg PO BID Seizures 03/25/23
cetirizine 10 mg tablet (Zyrtec) 10 mg PO DAILY PRN Allergies 04/02/23
atorvastatin 20 mg tablet 20 mg PO HS High Cholesterol 04/03/23
Tums 2 tab PO BIDPRN PRN gerd 12/29/23
acetaminophen 500 mg tablet 500 - 1,000 mg PO DAILYPRN PRN 12/29/23
(Tylenol Extra Strength) mild pain
aspirin 81 mg tablet,delayed 81 mg PO DAILY Blood Clot 12/29/23
release Prevention/Tx
cholecalciferol (vitamin D3) 25 25 mcg PO DAILY Supplement 12/29/23
mcg (1,000 unit) tablet
cyanocobalamin (vitamin B-12) 1,000 mcg PO SUTUWEFR@2200 12/29/23
1,000 mcg tablet Supplement
famotidine 20 mg tablet (Pepcid AC) 20 mg PO DAILY PRN gerd 12/29/23
ferrous sulfate 325 mg (65 mg 325 mg PO SUTUWEFR@0800 Supplement 12/29/23
iron) tablet
furosemide 20 mg tablet 20 mg PO DAILY Fluid 12/29/23
Retention/Swelling
peg 400-propylene glycol (PF) 0.4 2 drp BOTH EYES DAILYPRN PRN dry 12/29/23
%-0.3 % eye drops in a dropperette eyes
(Systane (PF))

Documented by User: Gentry Delgado MD 01/02/24 14:23
Today's Communication / Plan
-
.
--- NOTE | 2024-01-02 12:45 | CM ---
spoke with ania who confirmed bed availability at [facility] and received an auth from [facility] # [id number] for 5 days starting 01/01.if additional days are needed.call [phone] on 01/06/24.i sent text message to
ania with auth information.patient signed imm letter.daughter to transport to facility.
report# [phone] and fax # [phone].
--- NOTE | 2024-01-02 13:45 | W.DCSUMMARY ---
Discharge Summary
Discharge Data
Date of Admission: 12/29/23
Date of Discharge: 01/02/24
-
Pending Results: No
Hospital Course
88 years old female who presented to the emergency room with confusion, difficulty speaking, weakness and fall at home. She was noted to be drowsy on arrival. Imaging studies of the head did not show acute findings. No history of fever or
chills. No history of respiratory or gastrointestinal problems. Patient was noticed to have involuntary movements of the face. Patient was evaluated by neurologist and was diagnosed with seizure activity. She had continuous electroencephalogram
that did not show persistent seizure activities. Patient was started on higher dose of Keppra with good response. Neurologist recommended to increase dose of Keppra to 500 mg at night and 250 mg in the morning. Patient was monitored on cardiac
telemetry with no cardiac arrhythmias. She was evaluated by physical therapy use and recommended [facility] facility placement. him manager was involved. Patient had multiple joint aches and arthritis and was given Tylenol with good
response. She was able to ambulate with physical therapy with no localized weakness. Patient remained hemodynamically stable and was discharged in a stable condition.
Physical Exam
General: not in distress
HEENT: Moist MM. Pupils are reactive to light.
Respiratory: Clear
Cardiac: S1/S2
GI: Soft, Non Tender and Non Distended
Genito-urinary: No costovertebral tender
Musculoskeletal: No Cyanosis
Skin: No Jaundice
Neuro: Awake , oriented to self and surroundings, followed commands, no slurred speech.
Psych: calm, pleasant.
Total discharge time spent to see the patient on the floor, examine the patient, review data and lab results, discuss discharge plan with patient, nursing staff around 65 minutes
Discharge Plan
-
Patient Disposition: Retirement/SNF
Discharge Diagnosis/Procedures: Seizure leading to her fall and confusion
Condition: Fair
Diet: As tolerated
Referrals:
Fidencio Salgado MD [Active] - in one month
UNKNOWN,NO INTERVIEW [Family Provider] -
Prescriptions:
New
acetaminophen [Tylenol Extra Strength] 500 mg Tablet
1,000 mg PO Q6HPRN PRN (Reason: mild to mod pain) Qty: 10 0RF
levetiracetam 250 mg Tablet
250 mg PO DAILY Qty: 30 0RF
levetiracetam 500 mg tablet
500 mg PO HS Qty: 30 0RF
Continued
lamotrigine 250 mg tablet extended release 24hr
250 mg PO HS
cetirizine [Zyrtec] 10 mg Tablet
10 mg PO DAILY PRN (Reason: Allergies)
atorvastatin 20 mg tablet
20 mg PO HS
cyanocobalamin (vitamin B-12) 1,000 mcg Tablet
1,000 mcg PO SUTUWEFR@2200
aspirin 81 mg Tablet,Delayed Release (Dr/Ec)
81 mg PO DAILY
famotidine [Pepcid AC] 20 mg Tablet
20 mg PO DAILY PRN (Reason: gerd)
furosemide 20 mg Tablet
20 mg PO DAILY
Systane (PF) 0.4-0.3 % Dropperette
2 drp BOTH EYES DAILYPRN PRN (Reason: dry eyes)
cholecalciferol (vitamin D3) 25 mcg (1,000 unit) Tablet
25 mcg PO DAILY
Tums
2 tab PO BIDPRN PRN (Reason: gerd)
ferrous sulfate 325 mg (65 mg iron) tablet
325 mg PO SUTUWEFR@0800
Discontinued
levetiracetam 250 mg tablet
250 mg PO BID
acetaminophen [Tylenol Extra Strength] 500 mg Tablet
500 - 1,000 mg PO DAILYPRN PRN (Reason: mild pain)
Discharge Orders:
Discharge Patient (As Directed); Ordered 01/02/24
Ordered By: Stacey Kruger
Discharge Date and Time
Print Language: LATVIAN
== END 2024-01-02 15:10 | DRG 101 ==
LOC: 4 WEST ACU 11:59
PROVIDERS: ADMITTING PHYSICIAN Internal Medicine; CONSULT PHYSICIAN Student in an Organized Health Care Education/Training Program; EMERGENCY PHYSICIAN Emergency Medicine
DX: G40.009 Localization-related (focal) (partial) idiopathic epilepsy and epileptic syndromes with seizures of localized onset, not intractable, without status epilepticus (principal); I10 Essential (primary) hypertension; K21.9 Gastro-esophageal reflux disease without esophagitis; I73.9 Peripheral vascular disease, unspecified; M81.0 Age-related osteoporosis without current pathological fracture; K58.9 Irritable bowel syndrome, unspecified; S00.81XA Abrasion of other part of head, initial encounter; S50.311A Abrasion of right elbow, initial encounter; W19.XXXA Unspecified fall, initial encounter; R63.6 Underweight; D63.8 Anemia in other chronic diseases classified elsewhere; D50.9 Iron deficiency anemia, unspecified; Z66 Do not resuscitate; G31.84 Mild cognitive impairment of uncertain or unknown etiology; M41.9 Scoliosis, unspecified; E87.6 Hypokalemia; M25.512 Pain in left shoulder; M25.511 Pain in right shoulder; Z86.73 Personal history of transient ischemic attack (TIA), and cerebral infarction without residual deficits; Z79.82 Long term (current) use of aspirin
CPT/HCPCS: 70450; 70496; 70498; 71046; 80053; 80061; 80175; 82962; 83036; 83735; 84484; 85027; 86140; 92523; 92610; 93005; 93306; 95714; 95816; 97162; 97166; 97530; 97535; 99285; Q9967

== ENCOUNTER 2024-01-11 18:23 | Inpatient (IN) | payer OTHER, SELFPAY ==
[2024-01-11] VITALS (15 sets, daily range): BP systolic 90–167; BP diastolic 51–74; O2SAT 96; BMI 20.2
--- NOTE | 2024-01-11 07:33 | ED.GENMED ---
History of Present Illness
General
Chief Complaint: Change in Mental Status
Time Seen by Provider: 01/11/24 07:24
History of Present Illness
History of Present Illness:
88-year-old female with history of recent stroke, hyperlipidemia, and a seizure disorder presents to the emergency department from [facility] with a reported complaint of fatigue and mental status change. Daughter states that when the
patient was admitted to rehab she was fully alert and oriented, only concern was for lower extremity weakness and difficulty walking. Past 48 hours she has become intermittently confused and 'scared'. She also apparently had a fall earlier in the
week and outpatient x-rays were obtained that showed no evidence for hip fractures. Urinalysis was also reportedly sent however results of this are not yet available according to the daughter. The patient was started on Klonopin due to her
anxiety. The daughter is concerned that she could be having another stroke. The patient complains of back and pelvic pain bilaterally, denies any vision changes, chest pain, shortness of breath, or extremity paresthesias at this time
Past History
Past History
ED Past Medical History: GERD, Seizures (On Kepra) and Other (Scoliosis)
ED Past Surgical History: Appendectomy, Gynecological (Hysterectomy) and Orthopedic
Social History
Tobacco: Non-smoker
Alcohol: None
Drug: None
Living: fpc
Review of Systems
Review of Systems
Allergies reviewed?: Yes
All Other Systems: ROS reviewed and negative except as documented in HPI and ROS
Phy Exam
Physical Exam
Physical Exam:
GEN: Well appearing, NAD, WDWN
HEENT: Oral mucosa moist, no scleral icterus, no nasal congestion
Cardiac: Regular rate and rhythm, no murmurs
Lung: No respiratory distress, no tachypnea, lungs clear to auscultation bilaterally
MSK: No gross deformity or injuries
Skin: Good color, no pallor or jaundice, no rashes
Neuro: AO x3; CN II-XII grossly intact. Bilateral upper and lower extremity strength is symmetric in all salvador however patient appears globally weak with poor effort throughout, intact visual salvador
Psych: Calm, cooperative
Course
Orders/Labs/Results
Orders:
Orders
01/11/24 07:32
[address] Lumbar Spine W/o Iv Contras Urgent
Comment:
Reason For Exam: fall, low back pain
CT Pelvis W/o Iv Contrast Urgent
Comment:
Reason For Exam: fall bilat hip pain
01/11/24 08:35
Complete Blood Count/With Diff Urgent
Comprehensive Metabolic Panel Urgent
01/11/24 08:52
Lidocaine 2% [Lidocaine Uro-Jet 2%] 1 syringe TOPICAL NOW STA
01/11/24 08:57
Urinalysis Reflex To Culture Urgent
Date Specimen was Collected: 01/11/24
Time Specimen was Collected: 08:46
Urine Microscopic Reflex Cult Urgent
01/11/24 09:54
0.9% Sodium Chloride 1000 ml [Nss] 1,000 ml IV BOLUS
CR Chest - 2 Views Urgent
Comment:
Reason For Exam: leukocytosis
01/11/24 10:12
Case Management Consult ONCE
Case Management Consult: Other
01/11/24 10:58
PT Consult [Pt Eval And Treat] Urgent
Activity Level: As Tolerated
01/11/24 13:03
Cetirizine HCl [Zyrtec] 10 mg PO NOW STA
01/11/24 14:09
CT Head W/o Iv Contrast Urgent
Comment:
Reason For Exam: acute encephalopathy
Haloperidol Lactate [Haldol] 2 mg IV NOW STA
Abnormal Lab Results
01/11/24 01/11/24
08:35 08:57
WBC 13.9 H 10^3/uL
(4.8-10.8)
RBC 2.46 L 10^6/uL
(4.20-5.40)
Hgb 8.6 L g/dL
(12.0-16.0)
Hct 24.7 L %
(37.0-47.0)
MCV 100.4 H fL
(81.0-99.0)
MCH 35.0 H pg
(27.0-31.0)
RDW 16.9 H %
(11.5-14.5)
Abs Immat Gran (auto) 0.1 H 10^3/uL
(0-0.05)
Absolute Neuts (auto) 10.6 H 10^3/uL
(1.4-6.5)
Absolute Monos (auto) 0.8 H 10^3/uL
(0.1-0.6)
Immature Gran % 0.7 H %
(0-0.5)
Neutrophils % 76.6 H %
(42.2-75.2)
Lymphocytes % 14.4 L %
(20.5-51.1)
Creatinine 0.4 L mg/dL
(0.6-1.0)
Glucose 103 H mg/dl
(70-99)
Total Bilirubin 1.6 H mg/dl
(0.2-1.3)
Total Protein 5.5 L g/dl
(6.3-8.2)
Urine Ketones Trace A
(Negative)
Leukocyte Esterase Rfl Trace A
(Negative)
Urine Bacteria (Reflex) Few A
(Negative)
01/11/24 08:35
01/11/24 08:35
Vital Signs
Initial and Last Documented VS:
Initial Vital Signs
Pulse Resp Pulse Ox
87 17 96
01/11/24 06:21 01/11/24 06:21 01/11/24 06:21
Last Documented Vital Signs
Temp Pulse Resp BP Pulse Ox
99.8 F 83 11 144/61 97
01/11/24 06:27 01/11/24 15:39 01/11/24 15:39 01/11/24 15:38 01/11/24 12:30
MDM/Problems Addressed
MDM/Problems Addressed:
88-year-old female presents with acute mental status change. She is intermittently agitated which suggest some degree of cognitive decline/dementia. Certainly could consider metabolic encephalopathy if her workup is unrevealing for infectious or
metabolic cause. Patient did have a bout of severe agitation in the emergency department required IV Haldol in order to complete workup. She was seen by PT and case management and will certainly require rehab placement however her family is not
willing for her to go back to her current rehab facility, admitted to the hospital service for further management
*Critical Care Note
Total Time (30-74mins, 75-104mins- exclusive of procedures): Not Applicable
Update Note
Update Note:
2739: Patient is an abrupt onset and status change, very agitated and irate swinging at staff,
ED Attending Note
-
Portions of this chart may have been created with voice recognition software.� Occasional wrong word or��sound alike� substitutions may have occurred due to the inherent limitations of voice recognition software.
Discharge Plan
Departure
Patient Disposition: Admit
Date of Disposition: 01/11/24
Time of Disposition: 16:10
Admit to: Med/Surg
Presentation/result/management discussed w/ accepting MD/DO: Hospitalist
Discharge Problem:
Acute encephalopathy, Adult failure to thrive
Prescriptions:
No Action
lamotrigine 250 mg tablet extended release 24hr
250 mg PO HS
cetirizine [Zyrtec] 10 mg Tablet
10 mg PO DAILY PRN (Reason: Allergies)
atorvastatin 20 mg tablet
20 mg PO HS
cyanocobalamin (vitamin B-12) 1,000 mcg Tablet
1,000 mcg PO SUTUWEFR@2200
aspirin 81 mg Tablet,Delayed Release (Dr/Ec)
81 mg PO DAILY
famotidine [Pepcid AC] 20 mg Tablet
20 mg PO DAILY PRN (Reason: gerd)
furosemide 20 mg Tablet
20 mg PO DAILY
Systane (PF) 0.4-0.3 % Dropperette
2 drp BOTH EYES DAILYPRN PRN (Reason: dry eyes)
cholecalciferol (vitamin D3) 25 mcg (1,000 unit) Tablet
25 mcg PO DAILY
Tums
2 tab PO BIDPRN PRN (Reason: gerd)
ferrous sulfate 325 mg (65 mg iron) tablet
325 mg PO SUTUWEFR@0800
acetaminophen [Tylenol Extra Strength] 500 mg Tablet
1,000 mg PO Q6HPRN PRN (Reason: mild to mod pain) Qty: 10 0RF
levetiracetam 250 mg Tablet
250 mg PO DAILY Qty: 30 0RF
levetiracetam 500 mg tablet
500 mg PO HS Qty: 30 0RF
Referrals:
Milad Dai MD [Family Provider] -
Interventions
Interventions:
*Risk Screen - Suicide Last Done: 01/11/24 06:21
*General Assessment Last Done: 01/11/24 06:21
*Neglect/Abuse Screening Last Done: 01/11/24 06:21
*ED COVID-19 Vaccine History Last Done: 01/11/24 06:21
ED- Pulmonary Assessment Last Done: 01/11/24 10:56
ED- Neurological Assessment Last Done: 01/11/24 09:00
Discharge Date and Time
Print Language: GREEK
[2024-01-11 08:52] LABS: % Eosinophils 1.4 % (0-6); % Immature Granulocytes 0.7 % (0-0.5); % Lymphocytes 14.4 % (20.5-51.1); % Monocytes 5.9 % (1.7-9.3); % Neutrophils 76.6 % (42.2-75.2); Absolute Basophils 0.1 10^3/uL (0-0.2); Absolute Eosinophils 0.2 10^3/uL (0-0.7); Absolute Immature Granulocytes 0.1 10^3/uL (0-0.05); Absolute Monocytes 0.8 10^3/uL (0.1-0.6); Absolute Neutrophils 10.6 10^3/uL (1.4-6.5); Hematocrit 24.7 % (37.0-47.0); Hemoglobin 8.6 g/dL (12.0-16.0); Mean Corp Hgb Conc. 34.8 g/dL (33.0-37.0); Mean Corpuscular Volume 100.4 fL (81.0-99.0); Mean Platelet Volume 9.3 fL (7.4-10.4); Nucleated Red Blood Cells % 0.2 %; Platelet Count 360 10^3/uL (130-400); Red Blood Cell Count 2.46 10^6/uL (4.20-5.40); Red Cell Dist. Width 16.9 % (11.5-14.5); White Blood Cell Count 13.9 10^3/uL (4.8-10.8)
[2024-01-11] MEDS: LIDOCAINE URO-JET 2% 1 SYRINGE TOPICAL (08:56)
[2024-01-11 09:00] LABS: ALT (SGPT) 30 U/L (0-35); AST (SGOT) 33 U/L (14-36); Albumin 3.7 g/dl (3.5-5.0); Alkaline Phosphatase 109 U/L (38-126); Blood Urea Nitrogen 11 mg/dl (7-17); Calcium 9.1 mg/dl (8.4-10.2); Carbon Dioxide 29 mmol/L (22-30); Chloride 105 mmol/L (98-107); Glucose 103 mg/dl (70-99); Sodium 138 mmol/L (135-145); Total Bilirubin 1.6 mg/dl (0.2-1.3); Total Protein 5.5 g/dl (6.3-8.2); eGFR > 60.00
[2024-01-11 09:32] LABS: Urine Albumin Trace (Neg - Trace); Urine Bilirubin Negative (Negative); Urine Character Clear (Clear); Urine Color Yellow; Urine Glucose Negative (Negative); Urine Ketone Trace (Negative); Urine Leukocyte Trace (Negative); Urine Nitrite Negative (Negative); Urine Occult Blood Negative (Negative); Urine Urobilinogen 1+ (Neg - 1+)
[2024-01-11 09:45] LABS: Urine Bacteria Few (Negative); Urine Red Blood Cell 0-2 /HPF (0-2); Urine Squamous Cell 0-2 /LPF (Few)
[2024-01-11] MEDS: NSS 1000 IV (10:16)
--- NOTE | 2024-01-11 11:11 | CM ---
Addendum entered by Misha Aguillon 01/11/24 13:28:
Both pt and her daughter requested [facility] as number one choice.
CM spoke to [facility] director of oncology Trudy and she stated they do not have a bed available today, they will have a bed available tomorrow. Per Trudy, pt's referral will be reviewed tomorrow and determination will be made to whether or
not pt can be accepted.
Addendum entered by Misha Aguillon 01/11/24 12:42:
PT evaluation noted - SNF level of care recommended.
CM made a referral to requested SNFs: [facility], [facility] and [facility]. Awaiting for determination. Pt will need an insurance auth when a SNF confirmed.
Original Note:
CM following re: discharge planning.
CM consulted regarding pt and her daughter requested new SNF, brought their allegations regarding lack of carte at [facility].
Reviewed pt's chart, met with pt.
Pt is an 88 year old female, arrived to ED after daughter recognized pt's mental status change, pt became more confused and [facility].
Per daughter Yanci, pt lives with in an in-law suite attached to daughter;s house, 4 steps to enter and everything is on 1st floor. Per daughter, pt's is at inpatient 3d floor. Per daughter, pt went to [facility] on 01/02/24 and both pt
and her daughter brought their allegations regarding lack of care at [facility], pt became scared to stay there, became more confused when she took prescribed Klonopin. Both pt and her daughter requested new SNF and following SNF preferred: [facility]NF, [facility] or [facility].
PT evaluations requested for insurance purposes.
CM will make a referral after PT evaluation completed. Pt will need insurance auth once SNF found.
PCP: Yordy Hutchinson
Pharmacy: [facility].
D/C plan: requested SNF: [facility], [facility], [facility]. Awaiting for determination.
CM will follow to assist pt with discharge to a preferred and accepted SNF.
[2024-01-11] MEDS: HALDOL 2 MG IV (14:11)
--- NOTE | 2024-01-11 17:51 | HPS.HSE ---
Family Physician
-
Family Physician: Milad Dai
Chief Complaint
-
confusion
History of Present Illness
88-year-old woman with history of recent stroke, comes in with fatigue and mental status change. Daughter states that when the patient was admitted to rehab she was fully alert and oriented. Over the last 48 hours she has become intermittently
confused and 'scared'. She apparently had a fall earlier in the week and had outpatient x-rays, which showed no evidence for hip fractures. The patient was started on Klonopin due to her anxiety. The patient complains of back and pelvic pain
bilaterally, green diarrhea, but denies any vision changes, chest pain, shortness of breath, or extremity paresthesias. At the time of my interview she seemed calm and was able to answer all my questions appropriately.
Medical History
Past Medical History
Past Medical History: Reports Other
Additional Past Medical History:
GERD,
Seizures (On Kepra)
Scoliosis
Appendectomy,
Hysterectomy
Irritable bowel syndrome with diarrhea
Age-related osteoporosis without current pathological fracture
Cystocele,
Abnormal gait
Essential (primary) hypertension
Migraine without aura, intractable, with status migrainosus
History of open reduction and internal fixation (ORIF) procedure
Moderate protein-calorie malnutrition
PVD (peripheral vascular disease)
Transient ischemic attack (TIA)
Past Surgical History: Reports Other
Additional Past Surgical History:
See above
Social History
Tobacco: Non-smoker
Alcohol: None
Drug: None
Family History
Family History: Not pertinent
Allergies / Home Medications
Allergies reflects when Allergies were last updated in [employer].
Home Medications with original date entered in [employer]
Allergy/Medication List:
Allergies
Allergy/AdvReac Type Severity Reaction Status Date / Time
bacitracin Allergy Unknown Verified 01/11/24 06:21
erythromycin base Allergy Unknown Verified 01/11/24 06:21
Gramicidins Allergy Unknown Verified 01/11/24 06:21
iodine Allergy Unknown Verified 01/11/24 06:21
neomycin Allergy Unknown Verified 01/11/24 06:21
Penicillins Allergy patient Verified 01/11/24 06:21
states she
gets mouth
swelling
with
penicillin
polymyxin B Allergy Unknown Verified 01/11/24 06:21
povidone-iodine Allergy Unknown Verified 01/11/24 06:21
soap Allergy Unknown Verified 01/11/24 06:21
Sulfa (Sulfonamide Allergy Unknown Verified 01/11/24 06:21
Antibiotics)
sulfamethoxazole Allergy Unknown Verified 01/11/24 06:21
tetracycline Allergy Unknown Verified 01/11/24 06:21
trimethoprim Allergy Unknown Verified 01/11/24 06:21
Home Medications
lamotrigine 250 mg tablet,extended release 24 hr 250 mg PO HS Seizures 03/25/23
cetirizine 10 mg tablet (Zyrtec) 10 mg PO DAILYPRN PRN Allergies 04/02/23
atorvastatin 20 mg tablet 20 mg PO HS High Cholesterol 04/03/23
aspirin 81 mg tablet,delayed release 81 mg PO DAILY Blood Clot Prevention/Tx 12/29/23
calcium carbonate (Tums) 400 mg PO BIDPRN PRN gas ##0 12/29/23
cholecalciferol (vitamin D3) 25 mcg (1,000 unit) tablet 25 mcg PO DAILY Supplement 12/29/23
cyanocobalamin (vitamin B-12) 1,000 mcg tablet 1,000 mcg PO SUTUWEFR Supplement 12/29/23
famotidine 20 mg tablet (Pepcid AC) 20 mg PO DAILYPRN PRN gerd 12/29/23
ferrous sulfate 325 mg (65 mg iron) tablet 325 mg PO BID Supplement 12/29/23
furosemide 20 mg tablet 20 mg PO DAILY Fluid Retention/Swelling 12/29/23
peg 400-propylene glycol (PF) 0.4 %-0.3 % eye drops in a dropperette (Systane (PF)) 2 drp BOTH EYES [id number] PRN dry eyes 12/29/23
levetiracetam 250 mg tablet 250 mg PO DAILY #30 tabs 01/02/24
levetiracetam 500 mg tablet 500 mg PO HS #30 tabs 01/02/24
acetaminophen 325 mg tablet (Tylenol) 650 mg PO Q6HPRN PRN mild pain 01/11/24
bisacodyl 10 mg rectal suppository (Dulcolax (bisacodyl)) 10 mg [place] DAILYPRN PRN if no bm aftr mom 01/11/24
clonazepam 0.5 mg tablet 0.25 mg PO DAILY 01/11/24
magnesium hydroxide 400 mg/5 mL oral suspension (Milk of Magnesia) 2,400 mg PO [id number] PRN constipation 01/11/24
potassium chloride 20 mEq tablet,extended release 20 meq PO DAILY 01/11/24
sodium phosphates 19 gram-7 gram/118 mL enema (Fleet Enema) 118 ml [place] DAILYPRN PRN if no bm aftr dulcolax 01/11/24
Review of Systems
-
History Source: Patient
A 12 point ROS was completed and negative except as noted: Yes
Physical Exam
Vital Signs
Vital Signs
Temp Pulse Resp BP Pulse Ox
99.8 F 83 11 144/61 97
01/11/24 06:27 01/11/24 15:39 01/11/24 15:39 01/11/24 15:38 01/11/24 12:30
Physical Exam
General: Well Developed, No Apparent Distress, Comfortable, Conversant and Appears Chronically Ill
HEENT: No Ptosis, Nose Appears Normal and Ears Appear Normal
Respiratory: Clear
Cardiac: S1/S2 and Regular Rhythm
GI: Soft, Non Tender and Non Distended
Musculoskeletal: No Clubbing, No Cyanosis and No Edema
Skin: Warm and Dry
Neuro: Awake, Alert and Oriented
Psych: Calm
Laboratory Results
-
01/11/24 08:35
01/11/24 08:35
Laboratory Results
Total Bilirubin 1.6 mg/dl (0.2-1.3) H 01/11/24 08:35
AST 33 U/L (14-36) 01/11/24 08:35
ALT 30 U/L (0-35) 01/11/24 08:35
Alkaline Phosphatase 109 U/L (38-126) 01/11/24 08:35
Data Reviewed
-
Lab Data: Labs Reviewed by me
Impression/Plan
-
IMPRESSION:
88 woman with change of mental status. head CT, CXR, Pelvis CT and Lumbar spine CT do not show obvious cause of symptoms. Significant findings include:
WBC 13.9
H/H 8.6/24.7 (this is near her baseline), MCV > 100
UA shows trace LE and a few [place]
H/O green diarrhea
recent start of Klonopin
PLAN:
1. Change of mental status
Differential includes:
Active infection (GI, given diarrhea, need to R/O Cdiff)
Klonopin side effect
Anemia
neuro, given h/o seizures and TIA
Plan is to see if organisms grow on UA
Stop klonopin
Send stool for c-diff toxin and other studies
Recheck WBC in am
repeat CBC in am
2. Anemia, with high MCV
Check B12, folate
No indication for transfusion tonight
3. rehab placement - needs help from social work
4. for PMH - continue home meds
GERD,
Seizures (On Kepra)
Scoliosis
Irritable bowel syndrome with diarrhea
Age-related osteoporosis without current pathological fracture
Essential (primary) hypertension
Migraine without aura, intractable, with status migrainosus
Moderate protein-calorie malnutrition
PVD (peripheral vascular disease)
Transient ischemic attack (TIA)
Code: DNR
VCD for DVTp
[2024-01-11] MEDS: FEOSOL 325 MG PO (20:15)
[2024-01-11] MEDS: VITAMIN B-12 1000 MCG PO (20:15)
[2024-01-11 20:35] LABS: Troponin I < 0.012 ng/ml
[2024-01-11] MEDS: KEPPRA 500 MG PO (21:43)
[2024-01-11] MEDS: LIPITOR 20 MG PO (21:43)
[2024-01-11] MEDS: LAMICTAL 125 MG PO (22:56)
[2024-01-12 03:12] VITALS: BP 144/59
[2024-01-12 04:50] LABS: Troponin I < 0.012 ng/ml
[2024-01-12 07:00] VITALS: BP 121/44
[2024-01-12 08:24] LABS: Hematocrit 24.8 % (37.0-47.0); Hemoglobin 8.5 g/dL (12.0-16.0); Mean Corp Hgb Conc. 34.3 g/dL (33.0-37.0); Mean Corpuscular Hgb 35.7 pg (27.0-31.0); Mean Corpuscular Volume 104.2 fL (81.0-99.0); Mean Platelet Volume 9.6 fL (7.4-10.4); Platelet Count 343 10^3/uL (130-400); Red Blood Cell Count 2.38 10^6/uL (4.20-5.40); Red Cell Dist. Width 17.2 % (11.5-14.5); White Blood Cell Count 13.3 10^3/uL (4.8-10.8)
[2024-01-12 08:53] LABS: Blood Urea Nitrogen 6 mg/dl (7-17); Carbon Dioxide 28 mmol/L (22-30); Chloride 107 mmol/L (98-107); Estimated Creatinine Clearance 48 ml/min; Glucose 94 mg/dl (70-99); Magnesium 1.8 mg/dl (1.6-2.3); Potassium 3.7 mmol/L (3.5-5.1); Sodium 140 mmol/L (135-145); eGFR > 60.00
[2024-01-12 08:54] LABS: Troponin I < 0.012 ng/ml
[2024-01-12 09:20] LABS: TSH 4.05 uIU/ml (0.47-4.68)
[2024-01-12 09:39] LABS: Vitamin B12 > 1000 pg/ml (239-931)
[2024-01-12 10:03] LABS: Iron 78 ug/dl (37-170)
[2024-01-12 10:13] LABS: Percent Saturation 43 % (20-50); Total Iron Binding Capacity 178 ug/dl (265-497)
[2024-01-12] MEDS: ASPIR LOW (ENTERIC COATED) 81 MG PO (10:51)
[2024-01-12] MEDS: LAMICTAL 125 MG PO (10:51)
[2024-01-12] MEDS: LASIX 20 MG PO (10:51)
[2024-01-12] MEDS: KEPPRA 250 MG PO (10:51)
[2024-01-12] MEDS: KCL 20 MEQ PO (10:51)
[2024-01-12] MEDS: FEOSOL 325 MG PO ×2 (10:51→20:28)
[2024-01-12] MEDS: VITAMIN D3 (cholecalciferol) 25 MCG PO (10:52)
[2024-01-12 11:00] VITALS: BP 152/60
--- NOTE | 2024-01-12 12:47 | CON.NEURO4 ---
Consultation - Neurology 4
-
CONSULTING PHYSICIAN: Gentry Delgado
REFERRING PHYSICIAN: Hospitalist
DICTATED BY: Gentry Delgado
DATE/TIME OF REQUEST: January 12, 2024
DATE/TIME OF CONSULTATION: January 12 2024. 0900
Reason for Consultation: Altered mental status
History of Present Illness:
This is a 88 year old woman with history of epilepsy, small vessel disease, cognitive impairment who has had multiple hospitalizations. Who has been admitted with complaints of lethargy and confusion.
[facility] with a reported complaint of fatigue and mental status change. Daughter states that when the patient was admitted to Rehab she was alert and oriented, with mild lower extremity weakness and
difficulty walking. 48 hours before admission she became confused and 'scared'. The patient was started on Klonopin due to her anxiety
She had a fall earlier in the week and outpatient x-rays were obtained that showed no evidence for hip fractures. Urinalysis was also reportedly sent however results of this are not yet available according to the daughter. . The patient
complains of back and pelvic pain bilaterally. Her daughter was concerned that her mother was having another stroke and had her transferred to the emergency
This morning at the time of my evaluation patient was drowsy but easily arousable and answered questions appropriately
In March 2023, was treated with aspirin and clopidogrel for 21 days following this. She is on aspirin 81 mg daily at home. For seizures she has been on Lamotrigine as well as Levetiracetam
Past Medical History: Migraines hypertension seizure disorder GERD peripheral artery disease osteoporosis small vessel disease of the brain
Surgical History:
Family History: Noncontributory
Social History: senior care resident
Allergies:
Allergy/AdvReac Type Severity Reaction Status Date / Time
Penicillins Allergy Severe Unknown Verified 12/29/23 11:41
bacitracin Allergy Unknown Unknown Verified 12/29/23 11:41
neomycin Allergy Unknown Unknown Verified 12/29/23 11:41
polymyxin B Allergy Unknown Unknown Verified 12/29/23 11:41
povidone-iodine Allergy Unknown Unknown Verified 12/29/23 11:41
soap Allergy Unknown Unknown Verified 12/29/23 11:41
sulfamethoxazole Allergy Unknown Unknown Verified 12/29/23 11:41
tetracycline Allergy Unknown Unknown Verified 12/29/23 11:41
trimethoprim Allergy Unknown Unknown Verified 12/29/23 11:41
erythromycin base Allergy Unknown Verified 12/29/23 11:41
Gramicidins Allergy Unknown Verified 12/29/23 11:41
iodine Allergy Unknown Verified 12/29/23 11:41
Sulfa (Sulfonamide Allergy Unknown Verified 12/29/23 11:41
Antibiotics)
Home Medications
lamotrigine 250 mg tablet,extended release 24 hr 250 mg PO HS Seizures 03/25/23
levetiracetam 250 mg tablet 250 mg PO BID Seizures 03/25/23
cetirizine 10 mg tablet (Zyrtec) 10 mg PO DAILY PRN Allergies 04/02/23
atorvastatin 20 mg tablet 20 mg PO HS High Cholesterol 04/03/23
Tums 2 tab PO BIDPRN PRN gerd 12/29/23
acetaminophen 500 mg tablet (Tylenol Extra Strength) 500 - 1,000 mg PO DAILYPRN PRN mild pain 12/29/23
aspirin 81 mg tablet,delayed release 81 mg PO DAILY Blood Clot Prevention/Tx 12/29/23
cholecalciferol (vitamin D3) 25 mcg (1,000 unit) tablet 25 mcg PO DAILY Supplement 12/29/23
cyanocobalamin (vitamin B-12) 1,000 mcg tablet 1,000 mcg PO SUTUWEFR@2200 Supplement 12/29/23
famotidine 20 mg tablet (Pepcid AC) 20 mg PO DAILY PRN gerd 12/29/23
ferrous sulfate 325 mg (65 mg iron) tablet 325 mg PO SUTUWEFR@0800 Supplement 12/29/23
furosemide 20 mg tablet 20 mg PO DAILY Fluid Retention/Swelling 12/29/23
peg 400-propylene glycol (PF) 0.4 %-0.3 % eye drops in a dropperette (Systane (PF)) 2 drp BOTH EYES DAILYPRN PRN dry eyes 12/29/23
Review of Symptoms:
Patient denies any fever, headache, chest pain, shortness of breath, GI or symptoms.
�Per the HPI.�All systems are reviewed negative except above.
�- Remove any of these problems that patient may have complained about in the HPI.
�- If patient is unresponsive, intubated or demented, say 'Per the HPI. I am unable to obtain a complete review of systems�because of patient's inability to provide history.'
Vital Signs: Temp 36.2 C Pulse79 Resp 17 BP 152/60 Pulse Ox 92
Physical Exam:
The patient is afebrile, heart sounds S1 and S2 are (regular / irregular), and chest is clear to auscultation bilaterally.
Neurologic Examination:
The patient is easily arousable, alert and oriented x person and place. She is able to follow commands and answer questions appropriately. There is no aphasia or dysarthria. On cranial nerve assessment, pupils are 3 mm bilateral, round and reactive
to light and accommodation. Visual salvador are full. Extraocular movements are intact. Facial sensations are intact and bilaterally symmetrical, there is no facial asymmetry. Hearing is intact bilaterally to normal conversation volume. Tongue palate
and uvula are midline. Sternocleidomastoid strengths are full bilaterally. Motor strengths are 5/5 bilateral upper and lower extremities on medical research [place] scale. There is no drift or involuntary movement noted. Deep tendon reflexes are 2+
bilateral upper and lower extremities and Babinski is absent bilaterally. Sensations of pain, touch, temperature and vibration are intact and bilaterally symmetrical. There was no extinction noted on double simultaneous stimulation. Coordination is
intact by finger to nose bilaterally.
Lab Results: Addendum
Neuro Imaging: CT head Moderate age-related parenchymal atrophy. No intra- or extra-axial mass, hemorrhage, or fluid collection. Mild subcortical, deep, and periventricular white matter low-attenuation, compatible with changes of chronic small
vessel ischemic disease. The imaged paranasal sinuses and mastoid air cells are clear
Impression:
Mrs. MT BACH is a 88 year old F who has admitted to the hospital with altered mental status secondary to seizures. She also has increasing lethargy most likely related to use of Klonopin
PLAN:
1. EEG
2. Stop Klonopin
3. Decrease Keppra
4. Increase Lamictal 150mg BID
5. IV fluids
6. Dietary consult & Nutritional Support
Discussed patient care with:
Total Time Spent with Patient (in minutes): 30
Vital Signs and Labs
-
Vital Signs and Labs:
Vital Signs
Temp Pulse Resp BP Pulse Ox
36.2 C 79 17 152/60 92
01/12/24 11:00 01/12/24 11:00 01/12/24 11:00 01/12/24 11:00 01/12/24 11:00
Lab Results
01/12/24 07:59
01/12/24 07:59
Sodium 140 mmol/L (135-145) 01/12/24 07:59
Potassium 3.7 mmol/L (3.5-5.1) 01/12/24 07:59
BUN 6 mg/dl (7-17) L 01/12/24 07:59
Glucose 94 mg/dl (70-99) 01/12/24 07:59
Calcium 9.0 mg/dl (8.4-10.2) 01/12/24 07:59
Vitamin B12 > 1000 pg/ml (239-931) H 01/12/24 07:59
--- NOTE | 2024-01-12 13:02 | EEG.RPT ---
Electroencephalogram Report
Recording
Date of EE01/12/24
Type of EEG: Routine
Length of EEG recordin minutes
Done with Video Recording: Yes
Patient Status: Inpatient
Recording Conditions: Awake, Drowsy and Asleep
Hyperventilation Performed: No
Photic Stimulation Performed: Yes
Report
GREATER THAN 1 HOUR EEG REPORT
LESS THAN 1 HOUR EEG REPORT
LESS THAN 1 HOUR EEG INTERPRETATION:
Likely unremarkable EEG for age
CLINICAL CORRELATION:
Although normative values not been established for a person of this advanced age, the patient�s symmetry of the background suggests that this study was unremarkable.
A normal EEG does not rule out a diagnosis of epilepsy.� If clinical suspicion for seizure persists, a prolonged recording may be warranted.
Clinical correlation is advised.
METHODS:
A 21 channel digitized electroencephalogram (EEG) was performed using the 10/20 international system of electrode placement and one-lead of ECG recorded. The [employer] quantitative analysis system was utilized.
ELECTROENCEPHALOGRAPHER IMPRESSION(S):
Quality of study
Good
Background
There was an unremarkable anterior-posterior voltage gradient of alpha frequency.
With eye opening the background activity changed to a low voltage mixture of frequencies.
There were no significant asymmetries of background activity noted.
Sleep
Drowsiness present
Stage 1 sleep recorded
Stage 2 sleep recorded
Photic Stimulation
No driving
ECG
Normal sinus rhythm
--- NOTE | 2024-01-12 14:00 | W.PN.HOSP.TC ---
Today's Communication/Plan
-
Antiepileptics adjusted
Add Ensure
PT OT
Case management consulted for referrals to other rehabs.
Assessment / Plan
Assessment / Plan
88-year-old female with mental status change. She is from [facility] rehab for the past 48 hours that she is been confused and scared. She had a fall earlier in the week. Patient was also started on Klonopin due to anxiety. She has back
pain and pelvic pain
CT of the pelvis-high density bladder calculi layering within the urinary bladder. Nonspecific bowel gas pattern
Awake alert oriented times month and year. Knows that she is in a facility
Cardiovascular system S1-S2 appreciated
Chest clear to auscultation
Abdomen soft and nontender
Lower extremity no edema
Neuroexam mostly nonfocal
# Mental status change
Unclear if secondary to Klonopin
Rule out infection-urine analysis unremarkable
History of seizures and TIA
CT of the head-no acute changes
Chest x-ray no pneumonia
EKG without acute seizures
Neurology evaluation appreciated
# Seizures
Patient was started on Keppra 250 mg in the morning and 500 mg mg in the evening.Also Lamictal 250 mg at bedtime last admission
Changed to Lamictal 150 twice daily, Keppra morning dose stopped and evening dose of 500 mg at night continued
Klonopin stopped
EEG without any acute changes
# History of TIA-on aspirin and statin
# Anemia
# GERD-Pepcid
# IBS
# Ambulatory dysfunction
# Underweight-dietary eval. Ensure added 3 times daily
# Scoliosis
# Weight loss-discussed with patient's daughter that she needs workup for malignancy as outpatient including colonoscopy
# DVT prophylaxis-SCDs
# DNR
Discussed with patient's daughter she stated that she was on the patient's phone and heard staff talking really bad about her mom or other patients. Patient was also scared to be there at [facility]. She had mental status change or scared
appearance. They thought she was having a stroke. Daughter also felt that patient lost weight
Patient's daughter does not want her to go back to [facility]
Anticipated Discharge: Within 24 hours
Subjective/Interval History
-
Date of Service: January 12, 2024
Objective Data
-
Labs:
Laboratory Results
01/12/24
07:59
WBC 13.3 H
Hgb 8.5 L
Hct 24.8 L
Plt Count 343
Sodium 140
Potassium 3.7
Chloride 107
Carbon Dioxide 28
BUN 6 L
Creatinine 0.4 L
Glucose 94
Calcium 9.0
Vital Signs:
Vital Signs
Temp Pulse Resp BP Pulse Ox
97.1 F 79 17 152/60 92
01/12/24 11:00 01/12/24 11:00 01/12/24 11:00 01/12/24 11:00 01/12/24 11:00
I&O
01/11/24 01/12/24 01/13/24
06:59 06:59 06:59
Intake Total 200 / 200
Balance 200 / 200
[2024-01-12 15:00] VITALS: BP 143/62
[2024-01-12 15:26] VITALS: BMI 20.2
--- NOTE | 2024-01-12 15:38 | CM ---
Patient seen beside.
[facility].
If ready for d/c in am and bed [facility]
Plan: skilled rehab once medically stable.
[2024-01-12 19:45] VITALS: BP 119/55
[2024-01-12] MEDS: LAMICTAL 150 MG PO (20:29)
[2024-01-12] MEDS: KEPPRA 500 MG PO (21:57)
[2024-01-12] MEDS: LIPITOR 20 MG PO (21:57)
[2024-01-12 23:52] VITALS: BP 119/56
[2024-01-13 03:34] VITALS: BP 127/56
[2024-01-13 07:00] VITALS: BP 143/111
[2024-01-13] MEDS: LASIX 20 MG PO (08:20)
[2024-01-13] MEDS: LAMICTAL 150 MG PO (08:20)
[2024-01-13] MEDS: KCL 20 MEQ PO (08:20)
[2024-01-13] MEDS: VITAMIN D3 (cholecalciferol) 25 MCG PO (08:20)
[2024-01-13] MEDS: FEOSOL 325 MG PO (08:20)
[2024-01-13] MEDS: KEPPRA 250 MG PO (08:20)
[2024-01-13] MEDS: ASPIR LOW (ENTERIC COATED) 81 MG PO (08:21)
[2024-01-13] MEDS: VITAMIN B-12 1000 MCG PO (08:22)
--- NOTE | 2024-01-13 09:48 | PTCARENOTE ---
pt wakes to name oriented x3. 1 person assist to bsc. states no pain.
--- NOTE | 2024-01-13 09:49 | W.PN.NEURO.1 ---
Today's Communication / Plan
-
.
Neuro Assessment/Plan
Assessment
This is an 88-year-old female with a PMH of seizure disorder, small vessel disease, cognitive impairment with recent evaluation by our inpatient Neurology service in December 2023 for a change in mental status and involuntary facial movements attributed
to breakthrough seizure activity. Her home Keppra 250mg BID was increased to 500mg at HS, and her home lamotrigine 250mg HS was continued/not adjusted. She was [facility]. On 01/11/24 she presented to ER again
from rehab with report of intermittent confusion, being scared, and a fall earlier in the week with resultant hip pain. She was started on Klonopin in the past week at rehab due to anxiety.
-CT Head 01/11/24: No acute intracranial abnormality.
-EEG 01/12/24: Likely unremarkable EEG for age.
I. Altered mental status possibly due to new use of Klonopin, increased Keppra dosage, vs metabolic abnormality; appears to be improving.
II. Seizure disorder.
Plan
-Lamotrigine dose adjusted from 250mg HS to 150mg BID.
-Keppra 500mg HS continued, AM dose discontinued. Increased Keppra dose possibly contributing to fatigue and mood change.
-Would avoid benzodiazepine usage.
-PT/OT evaluations.
-DVT prophylaxis.
-Neurology will follow as-needed, please contact our service with any questions/concerns. Patient should follow-up as an outpatient in about [address] Salgado.
Subjective/Objective
Subjective Data
Date of Service: January 13, 2024
No acute events overnight. Patient reports feeling good this morning. She denies fatigue, dizziness, hallucinations, vision changes, speech/swallow difficulty, numbness, weakness. She reports a chronic daily headache. Patient is on enhanced contact
precautions, nursing staff report she is having diarrhea.
Objective Data
Vital Signs
Temp Pulse Resp BP Pulse Ox
97.9 F 84 18 143/111 94
01/13/24 07:00 01/13/24 07:00 01/13/24 07:00 01/13/24 08:20 01/13/24 07:00
Lab Results
01/12/24 07:59
01/12/24 07:59
Sodium 140 mmol/L (135-145) 01/12/24 07:59
Potassium 3.7 mmol/L (3.5-5.1) 01/12/24 07:59
BUN 6 mg/dl (7-17) L 01/12/24 07:59
Glucose 94 mg/dl (70-99) 01/12/24 07:59
Calcium 9.0 mg/dl (8.4-10.2) 01/12/24 07:59
Vitamin B12 > 1000 pg/ml (239-931) H 01/12/24 07:59
Patient Allergies
bacitracin Allergy (Verified 01/11/24 06:21)
Unknown
erythromycin base Allergy (Verified 01/11/24 06:21)
Unknown
Gramicidins Allergy (Verified 01/11/24 06:21)
Unknown
iodine Allergy (Verified 01/11/24 06:21)
Unknown
neomycin Allergy (Verified 01/11/24 06:21)
Unknown
Penicillins Allergy (Verified 01/11/24 06:21)
patient states she gets mouth swelling with penicillin
polymyxin B Allergy (Verified 01/11/24 06:21)
Unknown
povidone-iodine Allergy (Verified 01/11/24 06:21)
Unknown
soap Allergy (Verified 01/11/24 06:21)
Unknown
Sulfa (Sulfonamide Antibiotics) Allergy (Verified 01/11/24 06:21)
Unknown
sulfamethoxazole Allergy (Verified 01/11/24 06:21)
Unknown
tetracycline Allergy (Verified 01/11/24 06:21)
Unknown
trimethoprim Allergy (Verified 01/11/24 06:21)
Unknown
Review of Systems
-
History Source: Patient
EENT: Negative Blurry Vision, Decreased Vision or Swallowing Difficulty
Respiratory: Negative Cough or Trouble Breathing
Cardiac: Negative Chest Pain or Palpitations
Abdomen/GI: Diarrhea; Negative Nausea
Neuro: Headache; Negative Dizzy, Weakness, Numbness, Ataxia, Tremors or Speech Problem
Physical Exam
-
General: No Apparent Distress
Eyes: No Ptosis and PERRLA
HEENT: Normocephalic and Atraumatic
Neck: Full Range of Motion
Respiratory: No Dyspnea
GI: Non-distended
Extremities: No Clubbing, No Cyanosis and No Edema
Psych: Unremarkable
Extended Neurological Exam
Mood & Affect: Mood Unremarkable and Affect Unremarkable
Attention Span & Concentration: Awake, Alert and Interactive
Memory: Unremarkable (AAOx3, somewhat limited historian)
Tremor: Hand Tremor Absent and Head Tremor Absent
Involuntary Movement: None
Speech: Quality Unremarkable, Quantity Unremarkable and Rate of Production Unremarkable
Cranial Nerve II: Left Eye: Pupillary Reactivity Unremarkable, Pupillary Size Unremarkable and Visual Dorantes Intact
Cranial Nerve II: Right Eye: Pupillary Reactivity Unremarkable, Pupillary Size Unremarkable and Visual Dorantes Intact
Cranial Nerves III, IV, : Extraocular Movement: Extraocular Movement Full in all Directions
Cranial Nerve V: Facial Sensation: Intact to Light Touch
Cranial Nerve VII: Facial Symmetry: Normal Facial Symmetry
Cranial Nerve VIII: Hearing: Unremarkable Hearing to Normal Conversational Volume
Cranial Nerves IX, X: Palate Movement: Palate Elevation Symmetric
Cranial Nerve XI: Shoulder Shrug: Unremarkable
Cranial Nerve XII: Tongue Protusion: Midline
Muscle Strength, Overall: Full Throughout
Muscle Bulk & Tone: Bulk Unremarkable and Tone Unremarkable
Pronator Drift: No Drift in Upper Extremities and No Drift in Lower Extremities
Deep Tendon Reflexes: Unremarkable Throughout
Touch Sensation: Double Simultaneous Stimulation Unremarkable
Coordination: [id number]-[id number] Testing Unremarkable
Babinski Sign: Absent Bilaterally
Data Reviewed
-
CT Head: Report Reviewed and Image Reviewed
Labs: Report Reviewed
Reviewed with: Physician and Patient
Medications
-
Active Medications
Generic Name Dose Route Start Last Admin
Trade Name Freq PRN Reason Stop Dose Admin
Acetaminophen 650 mg 01/11/24 19:49
Acetaminophen 325 Mg Tablet PO 02/08/24 19:48
Q6HPRN PRN
mild pain
Artificial Tears 2 drops 01/11/24 20:09
Artificial Tears Pf (Refresh) 10 Drop Droperette BOTH EYES 02/08/24 20:08
[id number] PRN
dry eyes
Aspirin 81 mg 01/12/24 08:00 01/13/24 08:21
Aspirin 81 Mg (Enteric Coated) Tablet PO 02/09/24 07:59 81 mg
DAILY ERASTO Administration
Atorvastatin Calcium 20 mg 01/11/24 22:00 01/12/24 21:57
Atorvastatin (Lipitor) 20 Mg Tablet PO 02/08/24 21:59 20 mg
HS ERASTO Administration
Bisacodyl 10 mg 01/11/24 19:49
Bisacodyl 10 Mg Rectal Suppository RECTAL 02/08/24 19:48
[id number] PRN
constipation
Calcium Carbonate 1 tablet 01/11/24 19:49
Calcium Carbonate 500 Mg (Regular-Strength) Chew Tablet PO 02/08/24 19:48
BIDPRN PRN
gas
Cetirizine HCl 10 mg 01/11/24 19:49
Cetirizine Hcl 10 Mg Tablet PO 02/08/24 19:48
DAILYPRN PRN
Allergies
Cholecalciferol 25 mcg 01/12/24 08:00 01/13/24 08:20
Cholecalciferol (Vitamin D3) 25 Mcg Tablet (1,000 Units) PO 02/09/24 07:59 25 mcg
DAILY ERASTO Administration
Cyanocobalamin 1,000 mcg 01/11/24 19:49 01/13/24 08:22
Cyanocobalamin 1,000 Mcg Tablet PO 02/08/24 19:48 1,000 mcg
SuTuWeFr@0800 ERASTO Administration
Famotidine 20 mg 01/11/24 19:49
Famotidine 20 Mg Tablet PO 02/08/24 19:48
DAILYPRN PRN
gerd
Ferrous Sulfate 325 mg 01/11/24 20:00 01/13/24 08:20
Ferrous Sulfate 325 Mg Tablet PO 02/08/24 19:59 325 mg
BID ERASTO Administration
Furosemide 20 mg 01/12/24 08:00 01/13/24 08:20
Furosemide 20 Mg Tablet PO 02/09/24 07:59 20 mg
DAILY ERASTO Administration
Lamotrigine 150 mg 01/12/24 13:04 01/13/24 08:20
Lamotrigine 100 Mg Tablet PO 02/08/24 22:59 150 mg
BID ERASTO Administration
Levetiracetam 500 mg 01/11/24 22:00 01/12/24 21:57
Levetiracetam 500 Mg Regular Release Tablet PO 02/08/24 21:59 500 mg
HS ERASTO Administration
Magnesium Hydroxide 30 ml 01/11/24 19:49
Milk Of Magnesia 30 Ml Cup PO 02/08/24 19:48
[id number] PRN
constipation
Polyethylene Glycol 17 grams 01/11/24 19:49
Polyethylene Glycol Powder 17 Grams Packet PO 02/08/24 19:48
DAILYPRN PRN
constipation
Potassium Chloride 20 meq 01/12/24 08:00 01/13/24 08:20
Potassium Chloride 20 Meq Extended Release Tablet PO 02/09/24 07:59 20 meq
DAILY ERASTO Administration
Senna/Docusate Sodium 1 tablet 01/11/24 19:49
Docusate W/Senna (Sera-Colace) Tablet PO 02/08/24 19:48
BIDPRN PRN
constipation
Sodium Biphosphate/Sodium Phosphate 118 ml 01/11/24 19:49
Fleet Phosphate Enema (Adult) 135 Ml Bottle RECTAL 02/08/24 19:48
DAILYPRN PRN
if no bm aftr dulcolax
Home Medications
�Medication �Instructions �Recorded
lamotrigine 250 mg tablet,extended 250 mg PO HS Seizures 03/25/23
release 24 hr
cetirizine 10 mg tablet (Zyrtec) 10 mg PO DAILYPRN PRN Allergies 04/02/23
atorvastatin 20 mg tablet 20 mg PO HS High Cholesterol 04/03/23
aspirin 81 mg tablet,delayed 81 mg PO DAILY Blood Clot 12/29/23
release Prevention/Tx
calcium carbonate (Tums) 400 mg PO BIDPRN PRN gas ##0 12/29/23
cholecalciferol (vitamin D3) 25 25 mcg PO DAILY Supplement 12/29/23
mcg (1,000 unit) tablet
cyanocobalamin (vitamin B-12) 1,000 mcg PO SUTUWEFR Supplement 12/29/23
1,000 mcg tablet
famotidine 20 mg tablet (Pepcid AC) 20 mg PO DAILYPRN PRN gerd 12/29/23
ferrous sulfate 325 mg (65 mg 325 mg PO BID Supplement 12/29/23
iron) tablet
furosemide 20 mg tablet 20 mg PO DAILY Fluid 12/29/23
Retention/Swelling
peg 400-propylene glycol (PF) 0.4 2 drp BOTH EYES [id number] PRN dry 12/29/23
%-0.3 % eye drops in a dropperette eyes
(Systane (PF))
levetiracetam 250 mg tablet 250 mg PO DAILY #30 tabs 01/02/24
levetiracetam 500 mg tablet 500 mg PO HS #30 tabs 01/02/24
acetaminophen 325 mg tablet 650 mg PO Q6HPRN PRN mild pain 01/11/24
(Tylenol)
bisacodyl 10 mg rectal suppository [address] DAILYPRN PRN if no bm 01/11/24
(Dulcolax (bisacodyl)) aftr mom
clonazepam 0.5 mg tablet 0.25 mg PO DAILY Mental 01/11/24
Health/Anxiety
magnesium hydroxide 400 mg/5 mL 2,400 mg PO [id number] PRN 01/11/24
oral suspension (Milk of Magnesia) constipation
potassium chloride 20 mEq 20 meq PO DAILY Supplement 01/11/24
tablet,extended release
sodium phosphates 19 gram-[address] DAILYPRN PRN if no bm 01/11/24
gram/118 mL enema (Fleet Enema) aftr dulcolax
--- NOTE | 2024-01-13 10:50 | W.PN.HOSP.TC ---
Addendum entered and electronically signed by Ronen De La O MD 01/13/24 15:04:
Acute toxic metabolic encephalopathy was present on admission and is now resolved
Addendum entered and electronically signed by Ronen De La O MD 01/13/24 13:08:
Time of discharge 38 minutes
Original Note:
Today's Communication/Plan
-
Monitor vital signs see plan
Antiepileptics adjusted
DC Klonopin on discharge
Discharge today if has placement
Assessment / Plan
Assessment / Plan
88-year-old female with mental status change. [facility] that she is been confused and scared. She had a fall earlier in the week. Patient was also started on Klonopin due to anxiety. She has back
pain and pelvic pain
CT of the pelvis-high density bladder calculi layering within the urinary bladder. Nonspecific bowel gas pattern
# Mental status change
Unclear if secondary to Klonopin
Rule out infection-urine analysis unremarkable
History of seizures and TIA
CT of the head-no acute changes
Chest x-ray no pneumonia
EKG without acute seizures
Neurology evaluation appreciated; Keppra decreased, Lamictal increased
Stop Klonopin per neurology
# Seizures
Patient was started on Keppra 250 mg in the morning and 500 mg mg in the evening.Also Lamictal 250 mg at bedtime last admission
Changed to Lamictal 150 twice daily, Keppra morning dose stopped and evening dose of 500 mg at night continued
Klonopin stopped
EEG without any acute changes
# History of TIA-on aspirin and statin
# Anemia
# GERD-Pepcid
# IBS
# Ambulatory dysfunction
# Underweight-dietary eval. Ensure added 3 times daily
# Scoliosis
# Weight loss-discussed with patient's daughter that she needs workup for malignancy as outpatient including colonoscopy
# DVT prophylaxis-SCDs
# DNR
Discussed with patient's daughter she stated that she was on the patient's phone and heard staff talking really bad about her mom or other patients. Patient was also scared to be there at [facility]. She had mental status change or scared
appearance. They thought she was having a stroke. Daughter also felt that patient lost weight
Patient's daughter does not want her to go back to [facility]
Anticipated Discharge: Today
Subjective/Interval History
-
Date of Service: January 13, 2024
denies pain
Objective Data
-
Vital Signs:
Vital Signs
Temp Pulse Resp BP Pulse Ox
97.9 F 84 18 143/111 94
01/13/24 07:00 01/13/24 07:00 01/13/24 07:00 01/13/24 08:20 01/13/24 07:00
I&O
01/12/24 01/13/24 01/14/24
06:59 06:59 06:59
Intake Total 200 / 200 200 / 200
Balance 200 / 200 200 / 200
Physical Exam
-
General: No Apparent Distress and Comfortable
HEENT: Normocephalic, Atraumatic and Moist Mucous Membranes
Respiratory: Negative Wheezes
Cardiac: Regular Rhythm and S1/S2
Breast: Deferred by me
GI: Soft and Nontender
Genito-urinary: Negative Damico
Neuro: Awake and Alert
Psych: Calm
--- NOTE | 2024-01-13 10:55 | CM ---
Addendum entered by Mariann Babcock 01/13/24 13:59:
[facility]
Report# [phone]

ambulance transport scheduled for 4:30 pm.
Addendum entered by Mariann Babcock 01/13/24 13:04:
[facility] authorization for skilled rehab
Approved skilled rehab
Start date 01/13/24, NRD 01/19/24
Reference # [id number]
Updates to P# [phone]
Acute care ambulance authorization# [id number]
Original Note:
Bed available at [facility] today.
Await updated PT/OT.
Insurance auth needed.
[facility] NPI# [id number]
Dr iGraldo NPI# [id number]
[2024-01-13 11:00] VITALS: BP 135/68
--- NOTE | 2024-01-13 13:08 | W.DCSUMMARY ---
Discharge Summary
Discharge Data
Date of Admission: 01/11/24
Date of Discharge: 01/13/24
-
Pending Results: No
Hospital Course
88-year-old female with past medical history of seizure, TIA, anemia, GERD, IBS, ambulatory dysfunction, scoliosis came to the hospital with acute change in mental status. It was determined that patient's symptoms were likely secondary to Klonopin
and Keppra. CT scan was done which did not show any acute stroke. Patient was seen by neurology who recommended to discontinue Klonopin and to decrease Keppra. Instead patient Lamictal was increased as well. Patient mental status continue to
improve and was back to baseline prior to discharge. Patient was also seen by physical therapy recommended SNF. Once patient symptoms continue improve, she was then discharged to SNF with instructions to follow-up with all her physicians outpatient.
Discharge Plan
-
Patient Disposition: Group Home/SNF
Discharge Diagnosis/Procedures: Change in mental status likely secondary to Klonopin, Keppra
Diet: As tolerated
Activity: As tolerated
Driving Restrictions: As prior to admission
Bathing Restrictions: None
Referrals:
Gentry Delgado MD [Active] -
Milad Dai MD [Family Provider] - in less than 1 week
Prescriptions:
New
lamotrigine 100 mg Tablet
150 mg PO BID Qty: 0 0RF
Continued
cetirizine [Zyrtec] 10 mg Tablet
10 mg PO DAILYPRN PRN (Reason: Allergies)
atorvastatin 20 mg tablet
20 mg PO HS
cyanocobalamin (vitamin B-12) 1,000 mcg Tablet
1,000 mcg PO SUTUWEFR
aspirin 81 mg Tablet,Delayed Release (Dr/Ec)
81 mg PO DAILY
famotidine [Pepcid AC] 20 mg Tablet
20 mg PO DAILYPRN PRN (Reason: gerd)
calcium carbonate [Tums] 200 mg calcium (500 mg) Tablet,Chewable
400 mg PO BIDPRN PRN (Reason: gas) Qty: 0
furosemide 20 mg Tablet
20 mg PO DAILY
Systane (PF) 0.4-0.3 % Dropperette
2 drp BOTH EYES [id number] PRN (Reason: dry eyes)
cholecalciferol (vitamin D3) 25 mcg (1,000 unit) Tablet
25 mcg PO DAILY
ferrous sulfate 325 mg (65 mg iron) tablet
325 mg PO BID
levetiracetam 500 mg tablet
500 mg PO HS Qty: 30 0RF
acetaminophen [Tylenol] 325 mg Tablet
650 mg PO Q6HPRN PRN (Reason: mild pain)
magnesium hydroxide [Milk of Magnesia] 400 mg/5 mL Suspension
2,400 mg PO [id number] PRN (Reason: constipation)
bisacodyl [Dulcolax (bisacodyl)] 10 mg Suppository
10 mg MO DAILYPRN PRN (Reason: if no bm aftr mom)
Fleet Enema 19-7 gram/118 mL Enema
118 ml MO DAILYPRN PRN (Reason: if no bm aftr dulcolax)
potassium chloride 20 mEq Tablet Extended Release
20 meq PO DAILY
Discontinued
lamotrigine 250 mg tablet extended release 24hr
250 mg PO HS
levetiracetam 250 mg Tablet
250 mg PO DAILY Qty: 30 0RF
clonazepam 0.5 mg Tablet
0.25 mg PO DAILY
Discharge Orders:
Discharge Patient (As Directed); Ordered 01/13/24
Ordered By: Ronen De La O
Discharge Date and Time
Print Language: BELARUSIAN
[2024-01-13 13:41] LABS: COVID-19 Antigen Negative (Negative)
--- NOTE | 2024-01-13 14:13 | PN.CDI ---
CDI
- -
CDI:
Physician Documentation Request
Admit Date: 01/11/24 18:23
Dear Doctor Jairon,
Please review the following and provide your response in the progress notes.
Clinical Indicators:
The diagnosis of acute encephalopathy was documented on 01/11/24, but is not consistently noted in subsequent documentation.
01/10 ER Note: 'She is intermittently agitated which suggest some degree of cognitive decline/dementia. Certainly could consider metabolic encephalopathy if her workup is unrevealing for infectious or metabolic cause. Patient did have a bout of
severe agitation in the emergency department required IV Haldol in order to complete workup.' ' Discharge Problem:
Acute encephalopathy, Adult failure to thrive'
Pt admitted with change mental status.
Please clarify the following:
Acute encephalopathy was present on admission and is now resolved.
Acute encephalopathy was ruled out
Acute encephalopathy is still a likely, suspected, probable diagnosis
Other
Use of terms such as suspected, likely, concern for, or probable (associated with a specific diagnosis that is being evaluated, monitored, or treated as if it exists) are acceptable and can be coded in the inpatient setting, when documented at the
time of discharge.
Thank you,
Melida Terry RN, BSN
CDI Specialist
Available via [place] Text
Please use your independent medical judgment in providing your response.
[2024-01-13 15:00] VITALS: BP 110/72
== END 2024-01-13 17:18 | DRG 92 ==
LOC: 4 WEST ACU 18:23
PROVIDERS: Physician Assistant; ADMITTING PHYSICIAN Internal Medicine; ATTENDING PHYSICIAN Internal Medicine; CONSULT PHYSICIAN Psychiatry & Neurology Neurology; EMERGENCY PHYSICIAN Emergency Medicine; FAMILY PHYSICIAN Internal Medicine
DX: G92.8 Other toxic encephalopathy (principal); E44.0 Moderate protein-calorie malnutrition; I67.82 Cerebral ischemia; T42.4X5A Adverse effect of benzodiazepines, initial encounter; T42.6X5A Adverse effect of other antiepileptic and sedative-hypnotic drugs, initial encounter; G40.909 Epilepsy, unspecified, not intractable, without status epilepticus; K21.9 Gastro-esophageal reflux disease without esophagitis; Z66 Do not resuscitate; E78.5 Hyperlipidemia, unspecified; I10 Essential (primary) hypertension; K58.2 Mixed irritable bowel syndrome; G43.001 Migraine without aura, not intractable, with status migrainosus; I73.9 Peripheral vascular disease, unspecified; M41.9 Scoliosis, unspecified; D64.9 Anemia, unspecified; M81.0 Age-related osteoporosis without current pathological fracture; R63.4 Abnormal weight loss; R26.89 Other abnormalities of gait and mobility; F41.9 Anxiety disorder, unspecified; Z68.20 Body mass index [BMI] 20.0-20.9, adult; Z88.0 Allergy status to penicillin; Z79.82 Long term (current) use of aspirin; Z79.899 Other long term (current) drug therapy; Z86.73 Personal history of transient ischemic attack (TIA), and cerebral infarction without residual deficits
CPT/HCPCS: 70450; 71046; 72131; 72192; 80048; 80053; 81003; 81015; 82607; 82728; 83540; 83550; 83735; 84443; 84484; 85025; 85027; 87045; 87046; 87324; 87427; 87449; 87811; 89055; 93005; 95816; 96361; 96374; 97530; 99285

== ENCOUNTER 2024-02-06 20:46 | Observation (INO) | payer OTHER, SELFPAY ==
[2024-02-06] VITALS (17 sets, daily range): BP systolic 83–137; BP diastolic 35–69; BMI 18.3
[2024-02-06 16:47] LABS: % Basophils 1.3 % (0-2); % Eosinophils 2.6 % (0-6); % Immature Granulocytes 0.2 % (0-0.5); % Lymphocytes 33.1 % (20.5-51.1); % Monocytes 6.5 % (1.7-9.3); % Neutrophils 56.3 % (42.2-75.2); Absolute Basophils 0.1 10^3/uL (0-0.2); Absolute Eosinophils 0.1 10^3/uL (0-0.7); Absolute Lymphocytes 1.5 10^3/uL (1.2-3.4); Absolute Monocytes 0.3 10^3/uL (0.1-0.6); Absolute Neutrophils 2.6 10^3/uL (1.4-6.5); Hematocrit 24.4 % (37.0-47.0); Hemoglobin 8.7 g/dL (12.0-16.0); Mean Corp Hgb Conc. 35.7 g/dL (33.0-37.0); Mean Corpuscular Volume 106.6 fL (81.0-99.0); Mean Platelet Volume 9.7 fL (7.4-10.4); Nucleated Red Blood Cells % 0 %; Platelet Count 240 10^3/uL (130-400); Red Blood Cell Count 2.29 10^6/uL (4.20-5.40); Red Cell Dist. Width 18.4 % (11.5-14.5); White Blood Cell Count 4.6 10^3/uL (4.8-10.8)
[2024-02-06 17:03] LABS: ALT (SGPT) 25 U/L (0-35); AST (SGOT) 30 U/L (14-36); Albumin 3.6 g/dl (3.5-5.0); Alkaline Phosphatase 90 U/L (38-126); Blood Urea Nitrogen 12 mg/dl (7-17); Calcium 9.1 mg/dl (8.4-10.2); Carbon Dioxide 31 mmol/L (22-30); Chloride 100 mmol/L (98-107); Estimated Creatinine Clearance 47 ml/min; Glucose 113 mg/dl (70-99); Sodium 135 mmol/L (135-145); Total Bilirubin 1.7 mg/dl (0.2-1.3); Total Protein 5.3 g/dl (6.3-8.2); eGFR > 60.00
[2024-02-06] MEDS: NSS 1000 IV (17:22)
--- NOTE | 2024-02-06 17:29 | ED.GENMED ---
History of Present Illness
General
Chief Complaint: Seizure
Source: family
Exam Limitations: clinical condition
Time Seen by Provider: 02/06/24 17:17
History of Present Illness
History of Present Illness:
Patient is a 89-year-old woman with history of seizure on Keppra Lamictal, TIA presenting to the emergency room with a seizure. Patient's daughter is at bedside provides all the history. She states that yesterday she was in her usual state of
health. Last night started to seem a little off and did not take her usual antiepileptics last night. This morning they noticed that she was sitting staring off not responding and having small rhythmic movements of her feet and hands. This
happened during her seizures during her first admission. They then called medics. En route patient did have a generalized tonic-clonic seizure and was given 5 mg IV Versed. Per daughter no recent fevers chills. No cough congestion. She was
eating a little bit less yesterday. No recent trauma.
Past History
Past History
ED Past Medical History: GERD, Seizures (On Kepra) and Other (Scoliosis)
ED Past Surgical History: Appendectomy, Gynecological (Hysterectomy) and Orthopedic
Social History
Tobacco: Non-smoker
Alcohol: None
Drug: None
Living: [facility]cc
Phy Exam
Physical Exam
Physical Exam:
GENERAL: Sleepy but arousable
HEENT: normocephalic, extraocular movements intact, dry oral mucosa
NECK: normal inspection
RESPIRATORY: no respiratory distress, clear to auscultation bilaterally
CARDIOVASCULAR: regular rate and rhythm
ABDOMEN/: soft, non-distended, non-tender to palpation, no rebound or guarding
EXTREMITIES: non-tender, no edema/swelling
NEUROLOGIC: Sleepy but arouses to voice, pupils equal and reactive bilaterally, speech is clear. Oriented x 3, strength is weak all throughout but no gross deficits
SKIN: warm
Course
Orders/Labs/Results
Orders:
Orders
02/06/24 16:34
Complete Blood Count/With Diff Urgent
Comprehensive Metabolic Panel Urgent
02/06/24 17:21
0.9% Sodium Chloride 1000 ml [Nss] 1,000 ml IV BOLUS
02/06/24 17:27
CT Head W/o Iv Contrast Urgent
Comment:
Reason For Exam: seizure
02/06/24 17:28
CR Chest Portable - 1 View Urgent
Comment:
Reason For Exam: r/o infection
Reason Study Needs to be Portable: Patient Unstable
02/06/24 17:42
COVID-19 Antigen Urgent
Source: Nasal Swab
Urinalysis Reflex To Culture Urgent
Date Specimen was Collected: 02/06/24
Time Specimen was Collected: 17:36
Urine Microscopic Reflex Cult Urgent
Urine Culture Urgent
EMMA Source: U
Specimen Description:
Date Specimen was Collected: 02/06/24
Time Specimen was Collected: 17:36
Abnormal Lab Results
02/06/24 02/06/24
16:34 17:42
WBC 4.6 L 10^3/uL
(4.8-10.8)
RBC 2.29 L 10^6/uL
(4.20-5.40)
Hgb 8.7 L g/dL
(12.0-16.0)
Hct 24.4 L %
(37.0-47.0)
MCV 106.6 H fL
(81.0-99.0)
MCH 38.0 H pg
(27.0-31.0)
RDW 18.4 H %
(11.5-14.5)
Carbon Dioxide 31 H mmol/L
(22-30)
Glucose 113 H mg/dl
(70-99)
Total Bilirubin 1.7 H mg/dl
(0.2-1.3)
Total Protein 5.3 L g/dl
(6.3-8.2)
Leukocyte Esterase Rfl 1+ A
(Negative)
Urine WBC (Reflex) 16-20 A /HPF
(0-5)
Urine Bacteria (Reflex) Few A
(Negative)
02/06/24 16:34
02/06/24 16:34
Vital Signs
Initial and Last Documented VS:
Initial Vital Signs
Temp Pulse Resp Pulse Ox
99.2 F 133 19 94
02/06/24 16:29 02/06/24 16:29 02/06/24 16:29 02/06/24 16:29
Last Documented Vital Signs
Temp Pulse Resp BP Pulse Ox
99.2 F 76 13 137/59 97
02/06/24 16:29 02/06/24 18:30 02/06/24 18:30 02/06/24 18:30 02/06/24 18:30
MDM/Problems Addressed
Differential Diagnosis Includes:
Patient is a 89-year-old woman with history of seizures on Lamictal and Keppra presenting to the emergency department after having a seizure. Vitals initially notable for blood pressure of 83/38. However patient does awake and responds
appropriately. Concern for seizure from medication noncompliance versus infection versus intracranial abnormality. Given that she only missed [address] scan. Will also workup infectious etiology with blood work urine x-ray and COVID
swab. Will give IV fluids for the blood pressure and reassess. Likely anticipate improvement as she awakes after the Versed wears off.
Chronic conditions affecting care: Neurological disorder
*Critical Care Note
Total Time (30-74mins, 75-104mins- exclusive of procedures): Not Applicable
Update Note
Update Note:
On reevaluation patient is mentating better. Blood pressure has improved. CT scan unremarkable. She does not remember much of the events of today. She is still slightly confused. Blood work is otherwise reassuring. Discussed with hospitalist
for observation admission who accepted
ED Attending Note
-
Portions of this chart may have been created with voice recognition software.� Occasional wrong word or��sound alike� substitutions may have occurred due to the inherent limitations of voice recognition software.
Discharge Plan
Departure
Patient Disposition: Admit
Date of Disposition: 02/06/24
Time of Disposition: 20:09
Admit to doctor: félix
Presentation/result/management discussed w/ accepting MD/DO: Hospitalist
Discharge Problem:
Seizure
Prescriptions:
No Action
atorvastatin 20 mg tablet
20 mg PO HS
aspirin 81 mg Tablet,Delayed Release (Dr/Ec)
81 mg PO DAILY
famotidine [Pepcid AC] 20 mg Tablet
20 mg PO DAILYPRN PRN (Reason: gerd)
calcium carbonate [Tums] 200 mg calcium (500 mg) Tablet,Chewable
400 mg PO BIDPRN PRN (Reason: gas) Qty: 0
furosemide 20 mg Tablet
20 mg PO DAILY
Systane (PF) 0.4-0.3 % Dropperette
2 drp BOTH EYES [id number] PRN (Reason: dry eyes)
cholecalciferol (vitamin D3) 25 mcg (1,000 unit) Tablet
25 mcg PO DAILY
ferrous sulfate 325 mg (65 mg iron) tablet
325 mg PO Q48H
levetiracetam 500 mg tablet
500 mg PO HS Qty: 30 0RF
potassium chloride 20 mEq Tablet Extended Release
20 meq PO DAILY
lamotrigine 150 mg tablet
150 mg PO BID
miconazole nitrate [Desenex] 2 % Powder
1 applic TOPICAL PRN PRN (Reason: toileting)
Premarin 0.625 mg/gram cream
1 applic vaginal PRN PRN (Reason: toileting)
loratadine 10 mg Tablet
10 mg PO DAILYPRN PRN (Reason: allergies)
Referrals:
UNKNOWN - PT DOES,NOT KNOW [Family Provider] -
Interventions
Interventions:
*Risk Screen - Suicide Last Done: 02/06/24 16:32
*General Assessment Last Done: 02/06/24 16:32
*Neglect/Abuse Screening Last Done: 02/06/24 16:32
*ED COVID-19 Vaccine History Last Done: 02/06/24 16:32
ED- Cardiac Assessment Last Done: 02/06/24 16:50
ED- Neurological Assessment Last Done: 02/06/24 16:50
ED- Pulmonary Assessment Last Done: 02/06/24 16:50
Discharge Date and Time
Print Language: FILIPINO
[2024-02-06 17:54] LABS: Urine Albumin Negative (Neg - Trace); Urine Bilirubin Negative (Negative); Urine Character Slightly Cloudy (Clear); Urine Color Yellow; Urine Glucose Negative (Negative); Urine Ketone Negative (Negative); Urine Leukocyte 1+ (Negative); Urine Nitrite Negative (Negative); Urine Occult Blood Negative (Negative); Urine Specific Gravity 1.015 (<1.030); Urine Urobilinogen Negative (Neg - 1+)
[2024-02-06 18:05] LABS: COVID-19 Antigen Negative (Negative); Urine Bacteria Few (Negative); Urine Red Blood Cell 0-2 /HPF (0-2); Urine White Cell 16-20 /HPF (0-5)
--- NOTE | 2024-02-06 19:45 | HPS.HSE ---
Addendum entered and electronically signed by Sukhwinder Grubbs DO 02/06/24 20:26:
Plan to include:
Abnormal UA - Pt afebrile without leukocytosis. Not the greatest historian but denies frequency. I discussed [facility] family and in setting of seizure and confusion will treat wtih 1gm Rocephin daily, likely planning for short 3-5 day course.
Original Note:
Family Physician
-
Family Physician: NOT KNOW UNKNOWN - PT DOES
Chief Complaint
-
AMS/Witnessed Seizure
History of Present Illness
89yo F with PMH Seizures (Dx approx 3 years ago, last seizure December 2023), TIA, GERD, Chronic Anemia, IBS, Ambulatory Dysfunction, Scoliosis presents to ER for seizure activity. Pt lives with her daughter Yanci in an in-law suite. Yesterday she
'seemed a bit off' as she was pacing around her part of the house. Her daughter gave her her meds to take with ensure but this morning found she had not taken them. She placed a call to neurology (previously [facility] Dr. Ward, now with Dr. Salgado) and
heard back around 3pm to take the missed dose of keppra and lamictal (normally takes keppra 500mg PM and Lamictal 150mg BID). Around 3:30 pm when visiting nurse came she was staring off into space, and 'fidgeting' her b/l hands. EMS called. Pt had
witnessed tonic-clonic seizure activity and was given 5mg IV keppra en route. Pt does not recall event. Daughter reports she is chronically soft spoken and generally leans to the left 2/2 scoliotic curves. Pt did note a headache following seizure.
Otherwise denies fever, chills, chest pain, palps, wheezing, cough, abd pain, n/v/d/c, dysuria, calf or leg pain.
Patient presents to ER [facility] BP 83/38 other V.S.S. Basic labs stable from previous. Hgb 8.7 g/dL. Chronically macrocytic. BUN/Cr 12/0.6. Tbili 1.7. UA few bact, 1+LE, 16-20 WBC. S/P 1LNS Bolus in ER.
Medical History
Past Medical History
Past Medical History: Reports Other (GERD, IBS, Seizures (On Keppra and lamictal), TIA, and Other (Scoliosis) , Anemia)
Past Surgical History: Reports Other (Appendectomy, Gynecological (Hysterectomy) and Orthopedic)
Social History
Tobacco: Non-smoker
Alcohol: None
Drug: None
Family History
Family History: Not pertinent
Allergies / Home Medications
Allergies reflects when Allergies were last updated in [employer].
Home Medications with original date entered in [employer]
Allergy/Medication List:
Allergies
Allergy/AdvReac Type Severity Reaction Status Date / Time
bacitracin Allergy Unknown Verified 01/11/24 06:21
erythromycin base Allergy Unknown Verified 01/11/24 06:21
Gramicidins Allergy Unknown Verified 01/11/24 06:21
iodine Allergy Unknown Verified 01/11/24 06:21
neomycin Allergy Unknown Verified 01/11/24 06:21
Penicillins Allergy patient Verified 01/11/24 06:21
states she
gets mouth
swelling
with
penicillin
polymyxin B Allergy Unknown Verified 01/11/24 06:21
povidone-iodine Allergy Unknown Verified 01/11/24 06:21
soap Allergy Unknown Verified 01/11/24 06:21
Sulfa (Sulfonamide Allergy Unknown Verified 01/11/24 06:21
Antibiotics)
sulfamethoxazole Allergy Unknown Verified 01/11/24 06:21
tetracycline Allergy Unknown Verified 01/11/24 06:21
trimethoprim Allergy Unknown Verified 01/11/24 06:21
Home Medications
atorvastatin 20 mg tablet 20 mg PO HS High Cholesterol 04/03/23
aspirin 81 mg tablet,delayed release 81 mg PO DAILY Blood Clot Prevention/Tx 12/29/23
calcium carbonate (Tums) 400 mg PO BIDPRN PRN gas ##0 12/29/23
cholecalciferol (vitamin D3) 25 mcg (1,000 unit) tablet 25 mcg PO DAILY Supplement 12/29/23
famotidine 20 mg tablet (Pepcid AC) 20 mg PO DAILYPRN PRN gerd 12/29/23
ferrous sulfate 325 mg (65 mg iron) tablet 325 mg PO Q48H Supplement 12/29/23
furosemide 20 mg tablet 20 mg PO DAILY Fluid Retention/Swelling 12/29/23
peg 400-propylene glycol (PF) 0.4 %-0.3 % eye drops in a dropperette (Systane (PF)) 2 drp BOTH EYES [id number] PRN dry eyes 12/29/23
levetiracetam 500 mg tablet 500 mg PO HS #30 tabs 01/02/24
potassium chloride 20 mEq tablet,extended release 20 meq PO DAILY Supplement 01/11/24
conjugated estrogens 0.625 mg/gram vaginal cream (Premarin) 1 applic vaginal PRN PRN toileting 02/06/24
lamotrigine 150 mg tablet 150 mg PO BID 02/06/24
loratadine 10 mg tablet 10 mg PO DAILYPRN PRN allergies 02/06/24
miconazole nitrate 2 % topical powder (Desenex) 1 applic topical PRN PRN toileting 02/06/24
Review of Systems
-
A 12 point ROS was completed and negative except as noted: Yes
Physical Exam
Vital Signs
Vital Signs
Temp Pulse Resp BP Pulse Ox
99.2 F 76 13 137/59 97
02/06/24 16:29 02/06/24 18:30 02/06/24 18:30 02/06/24 18:30 02/06/24 18:30
Physical Exam
General: No Apparent Distress and Other (Frail appearing, Cachectic. Answering questions with soft spoken voice. )
HEENT: NormoCephalic, Moist mucous membranes and Atraumatic
Respiratory: Clear
Cardiac: S1/S2 and Regular Rhythm; No Murmur or Rub
GI: Soft, Non Tender, Non Distended and Normal Bowel Sounds; No Organomegaly
Rectal: Deferred by Provider
Genito-urinary: No costovertebral tender; No Damico
Musculoskeletal: No Clubbing, No Cyanosis and No Edema
Skin: Warm and Dry; No Rash
Neuro: Awake, Alert, Oriented, AO x 3, Nonfocal/grossly intact and Other (MSK UE/LE 4/5 throughout. )
Laboratory Results
-
02/06/24 16:34
02/06/24 16:34
Laboratory Results
Total Bilirubin 1.7 mg/dl (0.2-1.3) H 02/06/24 16:34
AST 30 U/L (14-36) 02/06/24 16:34
ALT 25 U/L (0-35) 02/06/24 16:34
Alkaline Phosphatase 90 U/L (38-126) 02/06/24 16:34
Data Reviewed
-
Diagnostic Radiology: Image Personally Visualized and interpreted
CT Scan: Image Personally Visualized and interpreted
Ultrasound: Image Personally Visualized and interpreted
Lab Data: Labs Reviewed by me
Old Records: Reviewed
Impression/Plan
-
Witnessed Seizure - Likely 2/2 missed antiepileptics on 02/04. Restart keppra 500mg PM and Lamictal 150mg BID. Continue neuro checks. Consider neuro consultation as needed. Pt can likely follow up outpt with neurologist Dr. Salgado.
Hyperbilirubinemia - Tbili 1.7. Likely stress related. No RUQ concerns at this time. S/P 1L NS bolus. Trend LFTs / Coags for AM.
Chronic Macrocytic Anemia - Hgb 8.7 g/dL, chronically macrocytic. Continue home iron supplement and trend. Check B12/Folate levels. Pt was previously B12 supplementation but reportedly oversupplemented so currently on hold.
TIA - Continue aspirin/statin.
Ambulatory Dysfunction - Hx noted. Pt has home nursing and ambulates with a walker. PT consult
CODE status: DNR/DNI
Diet: Regular Diet
DVT PPx: Lovenox
[2024-02-06] MEDS: KEPPRA 500 MG PO (22:45)
[2024-02-06] MEDS: FEOSOL 325 MG PO (22:45)
[2024-02-06] MEDS: LAMICTAL 150 MG PO (22:45)
[2024-02-06] MEDS: STERILE WATER FOR INJECTION 10 ML IV (22:46)
[2024-02-06] MEDS: TYLENOL 650 MG PO (22:46)
[2024-02-06] MEDS: ROCEPHIN 1000 MG IV (22:46)
[2024-02-06] MEDS: LIPITOR 20 MG PO (22:46)
[2024-02-07] VITALS (7 sets, daily range): BP systolic 118–154; BP diastolic 50–66; PULSE 77; O2SAT 92; BMI 18.3
[2024-02-07 07:28] LABS: INR 1.14; PT 14.4 Sec (11.4-14.6)
[2024-02-07 07:29] LABS: APTT 30.7 Sec (23.4-35.0)
[2024-02-07 07:36] LABS: Hematocrit 21.4 % (37.0-47.0); Hemoglobin 7.6 g/dL (12.0-16.0); Mean Corp Hgb Conc. 35.5 g/dL (33.0-37.0); Mean Corpuscular Hgb 36.2 pg (27.0-31.0); Mean Corpuscular Volume 101.9 fL (81.0-99.0); Mean Platelet Volume 10.4 fL (7.4-10.4); Platelet Count 204 10^3/uL (130-400); White Blood Cell Count 4.1 10^3/uL (4.8-10.8)
[2024-02-07] MEDS: LAMICTAL 150 MG PO ×2 (07:51→19:44)
[2024-02-07] MEDS: VITAMIN D3 (cholecalciferol) 25 MCG PO (07:51)
[2024-02-07] MEDS: ASPIR LOW (ENTERIC COATED) 81 MG PO (07:51)
[2024-02-07] MEDS: LASIX 20 MG PO (07:51)
[2024-02-07] MEDS: KCL 20 MEQ PO (07:51)
[2024-02-07 08:26] LABS: Vitamin B12 > 1000 pg/ml (239-931)
--- NOTE | 2024-02-07 08:28 | W.PN.HOSP.TC ---
Addendum entered and electronically signed by Endy Sierra MD 02/07/24 20:51:
Attending Addendum-
I saw and evaluated the patient. I reviewed the resident�s note and agree with findings and plan as documented in the resident�s note. Sub: Patient feels weak and has poor recollection of previous events. 'I think i missed a dose of my meds.' Full
12 point ROS reviewed and negative except as documented Exam: Vitals reviewed in chart GEN-NAD heart RRR liungs clear abd soft LE lm klaudia Neuroa AAO x2
Plan:
# Witnessed Seizure
-Likely 2/2 missed antiepileptics on 02/04.
-restart keppra 500mg PM and Lamictal 150mg BID.
-Continue neuro checks.
-follow up outpt with neurologist Dr. Salgado.
# Asymptomatic Bacteruria
- DC abx
- cont to monitor for sxs
# Hyperbilirubinemia
-Tbili 1.7
-Trend LFTs
# Chronic Macrocytic Anemia-
-Hgb 8.7->7.6 g/dL, chronically macrocytic.
-Elevated B12/Folate levels- supplements on hold.
-repeat HB stat-8.3
-repeat CBC in am
# Leukopenia-
- likely from meds
- repeat CBC and trend
# TIA - Continue aspirin/statin.
# GERD- cont famotidine
# HFpEF- cont lasix daily weights strict i and os
# Ambulatory Dysfunction -Pt has home nursing and ambulates with a walker. PT
Dispo per POA/PT requesting SNF- [facility] home previously
CODE status: DNR/DNI
Diet: Regular Diet
DVT PPx: Lovenox
Time spent coordinating care, review of plan of care with resident, personally reviewed records in EMR, med rec, consults, notes, labs, radiology, d/w nursing and POA � 56 mins
Original Note:
Today's Communication/Plan
-
.
Assessment / Plan
Assessment / Plan
89-year-old female with past medical history of seizures presenting with altered mental status and witnessed tonic-clonic seizure activity.
1. Witnessed seizure
-Likely secondary to missed antiepileptics on 02/04
� Restart Keppra and Lamictal
� Continue neuro checks
� Consider neuro consultation as needed
� Follow-up outpatient with Dr. Salgado
2. Abnormal UA
-Asymptomatic
3. Hyperbilirubinemia
� T. bili 1.7 likely stress related
� No right upper quadrant concerns at this time
� IVF given
� Trend LFTs and coag
4. Chronic macrocytic anemia
-Hemoglobin 8.3, chronically macrocytic
� Continue home iron supplement
� B12/folate levels pending
5. TIA
� Continue aspirin/statin
6. Ambulatory dysfunction
� PT consulted
� Per recommendations, discharge to SNF
Code DNR/DNI
Diet-regular
DVT prophylaxis-Lovenox
DC dispo to [facility]
Anticipated Discharge: 24 - 48 hours
Subjective/Interval History
-
Date of Service: February 07, 2024
Patient reports feeling tired today. She states she is unsure if she fainted or had a seizure yesterday. She remembers very little about the events preceding her arrival to the hospital. Today she reports no chest pain, shortness of breath,
abdominal pain, nausea, vomiting, diarrhea, numbness or tingling in arms. She does state tingling in her feet.
Objective Data
-
Labs:
Laboratory Results
02/07/24 02/07/24
06:48 08:15
WBC 4.1 L
Hgb 7.6 L
Hct 21.4 L
Plt Count 204
PT 14.4
INR 1.14
APTT 30.7
Sodium Cancelled Pending
Potassium Cancelled Pending
Chloride Cancelled Pending
Carbon Dioxide Cancelled Pending
BUN Cancelled Pending
Creatinine Cancelled Pending
Glucose Cancelled Pending
Calcium Cancelled Pending
Total Bilirubin Cancelled Pending
AST Cancelled Pending
ALT Cancelled Pending
Alkaline Phosphatase Cancelled Pending
Vital Signs:
Vital Signs
Temp Pulse Resp BP Pulse Ox
97.5 F 83 18 127/58 94
02/07/24 08:17 02/07/24 08:17 02/07/24 08:17 02/07/24 08:17 02/07/24 08:17
I&O
02/06/24 02/07/24 02/08/24
06:59 06:59 06:59
Intake Total 0 / 0
Balance 0 / 0
Review of Systems
-
History Source: Patient
Constitutional: Reports Fatigue and Weakness
EENT: Reports No Symptoms Reported
Respiratory: Reports No Symptoms
Cardiac: Reports No Symptoms
Abdomen/GI: Reports No Symptoms
Genitourinary: Reports No Symptoms
Musculoskeletal: Reports No Symptoms
Skin: Reports No Symptoms
Neuro: Reports Weakness and Other (Tingling in feet)
Physical Exam
-
General: No Apparent Distress and Other (Elderly)
HEENT: Normocephalic and Atraumatic
Respiratory: Clear to Auscultation
Cardiac: Regular Rhythm and S1/S2
GI: Soft, Nontender and Nondistended
Musculoskeletal: No Clubbing, No Cyanosis and Other (+1 edema bilaterally in leg)
Skin: Warm, Dry and Other (Mild bruising on legs)
Neuro: AO x 3, No Motor Deficits, Central Nerve's Intact and No Sensory Deficits
Psych: Calm
Data Reviewed
-
Total Time Spent with Patient (in minutes): 30
Diagnostic Radiology: Report Reviewed by me and Discussed with Physician
CT Scan: Report Reviewed by me and Discussed with Physician
Labs: Labs Reviewed by me and Discussed with Physician
Old Records: Reviewed
[2024-02-07 09:27] LABS: ALT (SGPT) 26 U/L (0-35); AST (SGOT) 29 U/L (14-36); Albumin 3.2 g/dl (3.5-5.0); Alkaline Phosphatase 94 U/L (38-126); Blood Urea Nitrogen 9 mg/dl (7-17); Carbon Dioxide 27 mmol/L (22-30); Chloride 105 mmol/L (98-107); Direct Bilirubin 0.1 mg/dl (0.0-0.4); Estimated Creatinine Clearance 47 ml/min; Glucose 87 mg/dl (70-99); Magnesium 2.1 mg/dl (1.6-2.3); Sodium 135 mmol/L (135-145); Total Bilirubin 1.4 mg/dl (0.2-1.3); eGFR > 60.00
[2024-02-07 10:04] LABS: Hemoglobin 8.3 g/dL (12.0-16.0)
[2024-02-07 10:06] LABS: Iron 159 ug/dl (37-170)
[2024-02-07 11:36] LABS: Folate > 20.0 ng/ml (2.76-20); Vitamin B12 > 1000 pg/ml (239-931)
[2024-02-07] MEDS: LOVENOX 40 MG SC (17:01)
[2024-02-07] MEDS: KEPPRA 500 MG PO (19:43)
[2024-02-07] MEDS: LIPITOR 20 MG PO (19:44)
[2024-02-07] MEDS: STERILE WATER FOR INJECTION 10 ML IV (21:11)
[2024-02-07] MEDS: ROCEPHIN 1000 MG IV (21:11)
[2024-02-08 03:09] VITALS: BP 152/64
[2024-02-08 07:35] VITALS: BP 144/68
--- NOTE | 2024-02-08 08:05 | W.PN.HOSP.TC ---
Addendum entered and electronically signed by Endy Sierra MD 02/08/24 21:21:
Attending Addendum-
I saw and evaluated the patient. I reviewed the resident�s note and agree with findings and plan as documented in the resident�s note. Sub: Patient feels overall improved and more alert. No further seizure events.Full 12 point ROS reviewed and
negative except as documented Exam: Vitals reviewed in chart GEN-NAD heart RRR lungs clear abd soft LE no edema Neuro- AAO x2 MS 11/08
Plan:
#Seizure
-Likely 2/2 missed antiepileptics on 02/04.
-cont keppra 500mg PM and Lamictal 150mg BID.
-Continue neuro checks.
-follow up outpt with neurologist Dr. Salgado.
# Asymptomatic Bacteruria
- DC abx
- cont to monitor for sxs
# Hyperbilirubinemia
-resolved
-check LFTs prn
# Chronic Macrocytic Anemia-
-stable
-chronically macrocytic.
-Elevated B12/Folate levels- supplements on hold.
-repeat CBC in am
# Leukopenia-
- likely from meds
- repeat CBC in am
# TIA - Continue aspirin/statin.
# GERD- cont famotidine
# HFpEF- cont lasix daily weights strict i and os
# Ambulatory Dysfunction -Pt has home nursing and ambulates with a walker. PT/OT
Dispo per POA/PT requesting SNF- [facility] previously
CODE status: DNR/DNI
Diet: Regular Diet
DVT PPx: Lovenox
Time spent coordinating care, review of plan of care with resident, personally reviewed records in EMR, med rec, consults, notes, labs, radiology, d/w nursing� 53 mins
Original Note:
Today's Communication/Plan
-
.
Assessment / Plan
Assessment / Plan
89-year-old female with past medical history of seizures presenting with altered mental status and witnessed tonic-clonic seizure activity.
1. Witnessed seizure
-Likely secondary to missed antiepileptics on 02/04
� Restart Keppra and Lamictal
� Continue neuro checks
� Consider neuro consultation as needed
� Follow-up outpatient with Dr. Salgado
2. Abnormal UA
-Asymptomatic
3. Hyperbilirubinemia
� T. bili 1.7 likely stress related. T. bili today 02/07 is 1
� No right upper quadrant concerns at this time
� IVF given
� Trend LFTs and coag. Today LFTs normal, coags normal
4. Chronic macrocytic anemia
-Hemoglobin 8.9, improved from yesterday, chronically macrocytic
� Continue home iron supplement
� B12 levels above 1000. Folate above 20.
-Continue to hold B12 folate due to oversupplementation
5. TIA
� Continue aspirin/statin
6. Ambulatory dysfunction
� PT consulted
� Per recommendations, discharge to SNF
Code DNR/DNI
Diet-regular
DVT prophylaxis-Lovenox
DC dispo to SNF. CM currently working on acquiring bed. Likely DC tomorrow
Anticipated Discharge: Within 24 hours
Subjective/Interval History
-
Date of Service: February 08, 2024
Patient reports feeling much more oriented today. She states she is less somnolent and has more energy. 'There was a lot going on yesterday.'Patient reports not sleeping well yesterday, sometimes at home she takes Tylenol PM to assist. She states
she has a mild headache today.
Objective Data
-
Vital Signs:
Vital Signs
Temp Pulse Resp BP Pulse Ox
97.6 F 84 18 152/64 94
02/08/24 03:09 02/08/24 03:09 02/08/24 03:09 02/08/24 03:09 02/08/24 03:09
I&O
02/07/24 02/08/2402/08/24
06:59 06:59 06:59
Intake Total 0 / 0 1200 / 1200
Balance 0 / 0 1200 / 1200
Review of Systems
-
History Source: Patient
Constitutional: Reports Sleep Disturbance
EENT: Reports No Symptoms Reported
Respiratory: Reports No Symptoms
Cardiac: Reports No Symptoms
Abdomen/GI: Reports No Symptoms
Musculoskeletal: Reports No Symptoms
Skin: Reports No Symptoms
Neuro: Reports Headache
Physical Exam
-
General: No Apparent Distress, Comfortable and Other (Elderly)
HEENT: Normocephalic and Atraumatic
Respiratory: Clear to Auscultation
Cardiac: Regular Rhythm and S1/S2
GI: Soft, Nontender and Nondistended
Musculoskeletal: No Clubbing, No Cyanosis and No Edema
Skin: Warm and Dry
Neuro: AO x 3
Psych: Calm
Data Reviewed
-
Total Time Spent with Patient (in minutes): 30
Labs: Labs Reviewed by me and Discussed with Physician
Old Records: Reviewed
[2024-02-08] MEDS: LAMICTAL 150 MG PO ×2 (08:47→20:54)
[2024-02-08] MEDS: KCL 20 MEQ PO (08:48)
[2024-02-08] MEDS: LASIX 20 MG PO (08:48)
[2024-02-08] MEDS: VITAMIN D3 (cholecalciferol) 25 MCG PO (08:48)
[2024-02-08] MEDS: ASPIR LOW (ENTERIC COATED) 81 MG PO (08:49)
--- NOTE | 2024-02-08 09:55 | CM ---
CM consult for SNF received. I spoke with Crystal's daughter regarding transfer to SNF. [facility] and [facility] are her first choices, [facility] preferred due to proximity between Crystal's daughter and her granddaughter to allow for frequent
visitation.
Additional referrals sent to [facility], [facility], [facility], [facility], [facility], [facility], and [facility].
[facility] admissions is not available until Friday; will watch for other facility responses to referral.
Plan: Transfer to SNF when bed available. Insurance authorization will have to be obtained once a facility has accepted for transfer. CM to follow.
[2024-02-08 11:03] LABS: % Basophils 1.6 % (0-2); % Eosinophils 2.5 % (0-6); % Immature Granulocytes 0.2 % (0-0.5); % Lymphocytes 27.6 % (20.5-51.1); % Monocytes 6.1 % (1.7-9.3); Absolute Basophils 0.1 10^3/uL (0-0.2); Absolute Eosinophils 0.1 10^3/uL (0-0.7); Absolute Lymphocytes 1.2 10^3/uL (1.2-3.4); Absolute Monocytes 0.3 10^3/uL (0.1-0.6); Absolute Neutrophils 2.8 10^3/uL (1.4-6.5); Hematocrit 26.1 % (37.0-47.0); Hemoglobin 8.9 g/dL (12.0-16.0); Mean Corp Hgb Conc. 34.1 g/dL (33.0-37.0); Mean Corpuscular Hgb 36.5 pg (27.0-31.0); Nucleated Red Blood Cells % 0 %; Platelet Count 228 10^3/uL (130-400); Red Blood Cell Count 2.44 10^6/uL (4.20-5.40); Red Cell Dist. Width 17.7 % (11.5-14.5); White Blood Cell Count 4.5 10^3/uL (4.8-10.8)
[2024-02-08 11:07] LABS: ALT (SGPT) 24 U/L (0-35); AST (SGOT) 28 U/L (14-36); Albumin 3.7 g/dl (3.5-5.0); Alkaline Phosphatase 82 U/L (38-126); Blood Urea Nitrogen 8 mg/dl (7-17); Calcium 9.1 mg/dl (8.4-10.2); Carbon Dioxide 31 mmol/L (22-30); Chloride 101 mmol/L (98-107); Estimated Creatinine Clearance 47 ml/min; Glucose 113 mg/dl (70-99); Sodium 136 mmol/L (135-145); Total Protein 5.4 g/dl (6.3-8.2); eGFR > 60.00
[2024-02-08 11:28] VITALS: BP 116/52
[2024-02-08 15:20] VITALS: BP 121/48
[2024-02-08] MEDS: LOVENOX 40 MG SC (17:02)
[2024-02-08] MEDS: KEPPRA 500 MG PO (20:53)
[2024-02-08] MEDS: FEOSOL 325 MG PO (20:54)
[2024-02-08] MEDS: LIPITOR 20 MG PO (20:54)
[2024-02-08 23:22] VITALS: BP 124/56
--- NOTE | 2024-02-09 03:30 | PTCARENOTE ---
Patient rang her call gallardo stating she feels an 'electric current going up her feet and legs'. Patient reports slight numbness but denies loss in sensation. Pedal pulses palpable, no complaints of pain. INSERTER OPERATOR made aware, up to floor to see patient.
Patient reports feeling better, denies any feeling of numbness. Plan of care ongoing.
[2024-02-09 07:51] VITALS: BP 117/54
--- NOTE | 2024-02-09 07:53 | W.PN.HOSP.TC ---
Addendum entered and electronically signed by Casa Calderon MD 02/09/24 14:43:
I saw and evaluated the patient. I reviewed the resident�s note and agree with findings and plan as documented in the resident�s note.
Patient sitting comfortably in chair having lunch. Complaining of dizziness although unable to elaborate further. Somewhat of chronic symptom based on history gathering. No associated nausea/vomiting. Denies vertigo-like feeling.
1. Breakthrough seizure
-Suspected with medication noncompliance/missed dosing
-Resume back on home regimen of Keppra and Lamictal
-Has been seizure-free during the hospital stay
-Evaluated by physical therapy and waiting for SNF rehab placement
2. Asymptomatic bacteriuria
-Taken off of antibiotic. Continue monitoring
3. Dizziness - chronic
-Check orthostatic vitals while in hospital
-denies vertigo like symptoms
-no SNHL symptoms
-Will benefit with balance center/vestibular therapy assessment on outpatient basis
4. Abnormal LFT
-now normalized.
Discharge planning for snf rehab , awaiting bed assignment
Original Note:
Today's Communication/Plan
-
.
Assessment / Plan
Assessment / Plan
89-year-old female with past medical history of seizures presenting with altered mental status and witnessed tonic-clonic seizure activity.
1. Witnessed seizure
-Likely secondary to missed antiepileptics on 02/04
� Restart Keppra and Lamictal
� Continue neuro checks
� Consider neuro consultation as needed
� Follow-up outpatient with Dr. Salgado
2. Abnormal UA
-Asymptomatic
3. Hyperbilirubinemia
� T. bili 1.7 likely stress related. T. bili 1.1 today
� No right upper quadrant concerns at this time
� IVF given
� Trend LFTs and coag. Today LFTs normal, coags normal
4. Chronic macrocytic anemia
-Hemoglobin 8.4, chronically macrocytic
� Discontinue home iron
� B12 levels above 1000. Folate above 20.
-Continue to hold B12 folate due to oversupplementation
5. TIA
� Continue aspirin/statin
6. Ambulatory dysfunction/dizziness
� PT consulted
-Orthostatic vitals ordered. Complete daily.
� Per recommendations, discharge to SNF
Code DNR/DNI
Diet-regular
DVT prophylaxis-Lovenox
DC dispo to SNF. CM currently working on acquiring bed at [facility]. Likely DC today or tomorrow
Anticipated Discharge: Within 24 hours
Subjective/Interval History
-
Date of Service: February 09, 2024
Today patient reports having significantly more clarity in the mind, but still feels some weakness. She reports an improvement in her appetite. She reports mild intermittent shortness of breath and dizziness. She has no other new symptoms. She
is looking forward to going to a SNF to get stronger so she can go back home to her daughter
Objective Data
-
Vital Signs:
Vital Signs
Temp Pulse Resp BP Pulse Ox
97.5 F 73 16 124/56 96
02/08/24 23:22 02/08/24 23:22 02/08/24 23:22 02/08/24 23:22 02/08/24 23:22
I&O
02/08/24 02/09/24 02/10/24
06:59 06:59 06:59
Intake Total 1200 / 1200 480 / 480
Balance 1200 / 1200 480 / 480
Review of Systems
-
History Source: Patient
Constitutional: Reports No Symptoms
EENT: Reports No Symptoms Reported
Respiratory: Reports Trouble Breathing
Cardiac: Reports No Symptoms
Abdomen/GI: Reports No Symptoms
Musculoskeletal: Reports No Symptoms
Skin: Reports No Symptoms
Neuro: Reports Dizzy and Weakness
Physical Exam
-
General: No Apparent Distress, Comfortable, Conversant and Other (Elderly)
HEENT: Normocephalic and Atraumatic
Respiratory: Clear to Auscultation
Cardiac: Regular Rhythm and S1/S2
GI: Soft, Nontender and Nondistended
Musculoskeletal: No Clubbing, No Cyanosis and Other (Mild +1 edema)
Skin: Warm and Dry
Neuro: AO x 3 and Tremors
Psych: Calm
Data Reviewed
-
Labs: Labs Reviewed by me and Discussed with Physician
Old Records: Reviewed
[2024-02-09] MEDS: LASIX 20 MG PO (09:04)
[2024-02-09] MEDS: KCL 20 MEQ PO (09:04)
[2024-02-09] MEDS: VITAMIN D3 (cholecalciferol) 25 MCG PO (09:05)
[2024-02-09] MEDS: LAMICTAL 150 MG PO (09:05)
[2024-02-09] MEDS: ASPIR LOW (ENTERIC COATED) 81 MG PO (09:05)
[2024-02-09 10:01] LABS: % Basophils 1.4 % (0-2); % Eosinophils 4.3 % (0-6); % Immature Granulocytes 0.4 % (0-0.5); % Lymphocytes 26.9 % (20.5-51.1); Absolute Basophils 0.1 10^3/uL (0-0.2); Absolute Eosinophils 0.2 10^3/uL (0-0.7); Absolute Lymphocytes 1.3 10^3/uL (1.2-3.4); Absolute Monocytes 0.4 10^3/uL (0.1-0.6); Absolute Neutrophils 2.9 10^3/uL (1.4-6.5); Hematocrit 24.1 % (37.0-47.0); Hemoglobin 8.4 g/dL (12.0-16.0); Mean Corp Hgb Conc. 34.9 g/dL (33.0-37.0); Mean Corpuscular Hgb 35.9 pg (27.0-31.0); Mean Platelet Volume 9.6 fL (7.4-10.4); Nucleated Red Blood Cells % 0 %; Platelet Count 259 10^3/uL (130-400); Red Blood Cell Count 2.34 10^6/uL (4.20-5.40); Red Cell Dist. Width 18.1 % (11.5-14.5); White Blood Cell Count 4.9 10^3/uL (4.8-10.8)
[2024-02-09 10:31] LABS: ALT (SGPT) 22 U/L (0-35); AST (SGOT) 26 U/L (14-36); Albumin 3.4 g/dl (3.5-5.0); Alkaline Phosphatase 75 U/L (38-126); Blood Urea Nitrogen 11 mg/dl (7-17); Calcium 9.3 mg/dl (8.4-10.2); Carbon Dioxide 30 mmol/L (22-30); Chloride 101 mmol/L (98-107); Estimated Creatinine Clearance 47 ml/min; Glucose 108 mg/dl (70-99); Potassium 4.1 mmol/L (3.5-5.1); Sodium 137 mmol/L (135-145); Total Bilirubin 1.1 mg/dl (0.2-1.3); Total Protein 5.1 g/dl (6.3-8.2); eGFR > 60.00
[2024-02-09 12:42] VITALS: BP 130/57; PULSE 78
--- NOTE | 2024-02-09 14:39 | W.PN.HOSP.TC ---
Today's Communication/Plan
-
discharge planning
Assessment / Plan
Assessment / Plan
89-year-old female with past medical history of seizures presenting with altered mental status and witnessed tonic-clonic seizure activity.
1. Witnessed seizure
-Likely secondary to missed antiepileptics on 02/04
� Restart Keppra and Lamictal
� Continue neuro checks
� Consider neuro consultation as needed
� Follow-up outpatient with Dr. Salgado
2. Abnormal UA
-Asymptomatic
3. Hyperbilirubinemia
� T. bili 1.7 likely stress related. T. bili 1.1 today
� No right upper quadrant concerns at this time
� IVF given
� Trend LFTs and coag. Today LFTs normal, coags normal
4. Chronic macrocytic anemia
-Hemoglobin 8.4, chronically macrocytic
� Discontinue home iron
� B12 levels above 1000. Folate above 20.
-Continue to hold B12 folate due to oversupplementation
5. TIA
� Continue aspirin/statin
6. Ambulatory dysfunction/dizziness
� PT consulted
-Orthostatic vitals ordered. Complete daily.
� Per recommendations, discharge to SNF
Code DNR/DNI
Diet-regular
DVT prophylaxis-Lovenox
DC dispo to SNF. CM currently working on acquiring bed at [facility]. Likely DC today or tomorrow
Anticipated Discharge: Today
Subjective/Interval History
-
Date of Service: February 09, 2024
Objective Data
-
Labs:
Laboratory Results
02/09/24
09:23
WBC 4.9
Hgb 8.4 L
Hct 24.1 L
Plt Count 259
Sodium 137
Potassium 4.1
Chloride 101
Carbon Dioxide 30
BUN 11
Creatinine 0.6
Glucose 108 H
Calcium 9.3
Total Bilirubin 1.1
AST 26
ALT 22
Alkaline Phosphatase 75
Vital Signs:
Vital Signs
Temp Pulse Resp BP Pulse Ox
98 F 69 18 117/54 95
02/09/24 07:51 02/09/24 07:51 02/09/24 07:51 02/09/24 07:51 02/09/24 07:51
I&O
02/08/24 02/09/24 02/10/24
06:59 06:59 06:59
Intake Total 1200 / 1200 480 / 480
Balance 1200 / 1200 480 / 480
--- NOTE | 2024-02-09 15:18 | CM ---
Addendum entered by Clementine Bruno 02/11/24 10:56:
Crystal was discharged to [facility] on 02/09/2024 via ambulance. Daughter aware of change in plans and agreeable.
Addendum entered by Clementine Bruno 02/09/24 16:44:
Transport plans have changed, as Crystal requires max assist/lift of 2 for transfers and would be unsafe in w/c or via car transport.
Original Note:
Attempted to obtain SNF authorization earlier today, however same day therapy notes were requested. CM contacted PT who saw Crystal today and was able to provide updated notes.
SNF reference number [id number] authorized 5 days with next review on 02/13/2024 to be called to .
CM spoke with Crystal's daughter who would like to drive her mother to [facility] to avoid transport costs, and would also like to review the discharge and diet instructions.
RN and MD aware of same.
Plan: Transfer to [facility] today via daughter
[facility]
Report: [phone]
[2024-02-09 15:20] VITALS: BP 124/67
--- NOTE | 2024-02-09 15:23 | W.DCSUMMARY ---
Discharge Summary
Discharge Data
Date of Admission: 02/06/24
Date of Discharge: 02/13/24
-
Pending Results: No
Hospital Course
Admission diagnosis: Seizure
Conditions prior to admission:
Seizures
TIA
GERD
Chronic anemia
IBS
Ambulatory dysfunction
Scoliosis
Hospital admission: 89yo F with PMH Seizures (Dx approx 3 years ago, last seizure December 2023), TIA, GERD, Chronic Anemia, IBS, Ambulatory Dysfunction, Scoliosis presents to ER for seizure activity. Pt lives with her daughter Yanci in an in-law
suite. Patient was brought to the hospital after weakness/altered mental status and witnessed tonic-clonic seizure, likely secondary to missed Keppra dose on 02/04. In the ER home medication of Keppra and Lamictal restarted. Patient put on
neurochecks, follow up outpatient with Dr. Salgado as needed. Patient's home iron, B12, folate supplementation discontinued due to oversupplementation and elevated lab values. Abnormal UA was asymptomatic so Rocephin was discontinued. Patient
continued to experience postictal state/confusion for 1 day after admission and resolved to closer to baseline by day 3. Per PT OT evaluation, patient to be discharged to SNF prior to return home and would likely benefit with balance
center/vestibular therapy as an outpatient.
Data reviewed from admission:
Head CT�8/2�no acute intracranial abnormality noted
Chest x-ray�8/2�no acute disease of the chest. Large hiatal hernia, stable. Mild cardiomegaly, stable.
Discharge Plan
-
Patient Disposition: Fdc/SNF
Discharge Diagnosis/Procedures: Seizure
Condition: Fair
Diet: As tolerated
Additional Diets: Low acid diet
Activity: With assistance and As tolerated
Driving Restrictions: As prior to admission
Bathing Restrictions: None
Referrals:
UNKNOWN - PT DOES,NOT KNOW [Family Provider] -
Additional Discharge Medication Instructions: please follow up with PCP outpatient in 7-10 days. Please stop home iron, B12 and folate supplement.
Prescriptions:
Continued
atorvastatin 20 mg tablet
20 mg PO HS
aspirin 81 mg Tablet,Delayed Release (Dr/Ec)
81 mg PO DAILY
famotidine [Pepcid AC] 20 mg Tablet
20 mg PO DAILYPRN PRN (Reason: gerd)
calcium carbonate [Tums] 200 mg calcium (500 mg) Tablet,Chewable
400 mg PO BIDPRN PRN (Reason: gas) Qty: 0
furosemide 20 mg Tablet
20 mg PO DAILY
Systane (PF) 0.4-0.3 % Dropperette
2 drp BOTH EYES [id number] PRN (Reason: dry eyes)
cholecalciferol (vitamin D3) 25 mcg (1,000 unit) Tablet
25 mcg PO DAILY
levetiracetam 500 mg tablet
500 mg PO HS Qty: 30 0RF
potassium chloride 20 mEq Tablet Extended Release
20 meq PO DAILY
lamotrigine 150 mg tablet
150 mg PO BID
miconazole nitrate [Desenex] 2 % Powder
1 applic TOPICAL PRN PRN (Reason: toileting)
Premarin 0.625 mg/gram cream
1 applic vaginal PRN PRN (Reason: toileting)
loratadine 10 mg Tablet
10 mg PO DAILYPRN PRN (Reason: allergies)
Discontinued
ferrous sulfate 325 mg (65 mg iron) tablet
325 mg PO Q48H
Discharge Orders:
Discharge Patient (As Directed); Ordered 02/09/24
Ordered By: Janet Dumont
Discharge Date and Time
Discharge Date/Time: 02/09/24 19:22
Print Language: MARTINIQUAIS
[2024-02-09 15:55] VITALS: BP 118/52; BP 127/61; BP 132/63; PULSE 77; PULSE 79; PULSE 82
[2024-02-09 16:54] LABS: COVID-19 Antigen Negative (Negative)
[2024-02-09] MEDS: LOVENOX SC (18:14)
[2024-02-09] MEDS: TYLENOL 650 MG PO (18:56)
--- NOTE | 2024-02-10 18:30 | W.PN.UPDATE ---
Update Note
Progress Note Update
I was called as the patient is complaining of electrical shocklike sensation in both her legs and feet, headaches and floaters like sensation in her eyes yesterday before discharge.
Spoke to the patient. Her electrical shocklike sensation in both her lower legs from knees below is usually over the last 1 week during her hospital stay and at the house following sitting for 2 to 3 hours in the chair and self resolving. Never
had those symptoms before.
She is reporting of occipital and frontal headaches of about 7 out of 10 in intensity, sharp and stabbing pain, nonradiating and with some facial pain as well. These headaches are her baseline headaches usually about 4 out of 10 in intensity but
can get worse up to 10 out of 10 in intensity for more than 2 months now. History of migraines and sinusitis in the past.
On physical examination-no vertical or horizontal nystagmus, mucous membranes moist, maxillary sinus tenderness present.
Sensation on both feet intact.
Since this is a chronic issue-gave the patient Tylenol and patient felt better after half an hour and patient was still discharged given her stable condition. Patient is advised to follow-up with her primary care physician and neurology.
== END 2024-02-09 19:22 ==
LOC: 4 EAST ACU 20:46
PROVIDERS: Family Medicine; ADMITTING PHYSICIAN Internal Medicine; ATTENDING PHYSICIAN Hospitalist; EMERGENCY PHYSICIAN Student in an Organized Health Care Education/Training Program
DX: R56.9 Unspecified convulsions (principal); R82.71 Bacteriuria; R41.82 Altered mental status, unspecified; R51.9 Headache, unspecified; E80.6 Other disorders of bilirubin metabolism; D53.9 Nutritional anemia, unspecified; R26.2 Difficulty in walking, not elsewhere classified; R42 Dizziness and giddiness; K44.9 Diaphragmatic hernia without obstruction or gangrene; M41.9 Scoliosis, unspecified; I50.32 Chronic diastolic (congestive) heart failure; K21.9 Gastro-esophageal reflux disease without esophagitis; D72.819 Decreased white blood cell count, unspecified; K58.9 Irritable bowel syndrome, unspecified; Z88.0 Allergy status to penicillin; Z88.2 Allergy status to sulfonamides; Z88.8 Allergy status to other drugs, medicaments and biological substances; Z88.1 Allergy status to other antibiotic agents; Z91.148 Patient's other noncompliance with medication regimen for other reason; Z86.73 Personal history of transient ischemic attack (TIA), and cerebral infarction without residual deficits; Z79.82 Long term (current) use of aspirin; Z91.041 Radiographic dye allergy status; Z66 Do not resuscitate; Z11.52 Encounter for screening for COVID-19
CPT/HCPCS: 70450; 71045; 80053; 81003; 81015; 82248; 82607; 82746; 83540; 83735; 85018; 85025; 85027; 85610; 85730; 87077; 87086; 87147; 87186; 87811; 96360; 97162; 97530; 99285; G0378

== ENCOUNTER 2024-03-16 12:15 | Emergency (ER) | payer OTHER, SELFPAY ==
[2024-03-16 12:17] VITALS: BP 136/58
--- NOTE | 2024-03-16 12:42 | ED.GENMED ---
History of Present Illness
General
Chief Complaint: Skin Surface Trauma
Time Seen by Provider: 03/16/24 12:42
History of Present Illness
History of Present Illness:
HPI: Patient presents after a fall and has a large skin tear to the right hand. She is on aspirin. She states that she was walking too fast with her walker and fell. She struck the back of her head and has pain in the back of her head but also
points to the back of her neck as well. However, she denies neck pain. She has some discomfort at the right hand.
EXAM:
GENERAL: Well appearing in mild distress
CERVICAL SPINE: No midline c-spine tenderness with excellent AROM
HEAD: No evidence of craniofacial trauma
CHEST: No chest wall tenderness, normal heart sounds
LUNGS: Equal lung sounds, no respiratory distress
ABDOMEN: No abdominal tenderness, no peritoneal signs
EXTREMITIES: There is some questionable bony tenderness to palpation of the dorsal aspect of the right hand and fingers, 6 cm irregular skin tear noted to the dorsal aspect of the right hand with no active bleeding, she has some decreased active
range of motion to flexion at the right hip, no pain with rotation of the hips
NEURO: Excellent strength all extremities, appropriate mental status, normal speech/language
TIME OF INITIAL ENCOUNTER: 12:45 PM
NUMBER AND COMPLEXITY OF PROBLEMS ADDRESSED AT THE ENCOUNTER
� Chronic conditions affecting care: Memory impairment, seizure disorder
� Acute Exacerbation and/or Progression of Chronic Illness: This is an acute problem
� Differential Diagnosis includes: Skin tear, laceration, contusion, intracranial hemorrhage, cervical spine fracture less likely based on exam
AMOUNT AND/OR COMPLEXITY OF DATA TO BE REVIEWED AND ANALYZED
� I performed an independent evaluation of and my interpretation is:
EKG:
CT: CT of the brain and cervical spine are unremarkable
X-rays: X-rays of the right hip and the right hand are unremarkable other than degenerative changes
Laboratory Studies:
Other:
� Review of other/old records: I reviewed records, the patient was admitted here about 1 month ago with a seizure
� Clinical information was obtained by an independent historian: I spoke to the daughter at bedside
� Prescriptions/Medications Considered but not given:
� Further testing considered but not performed:
RISK OF COMPLICATIONS AND/OR MORBIDITY OR MORTALITY OF PATIENT MANAGEMENT
� Social determinants of health affecting care: Lives at an in-law suite next to her daughter
� Discussion with other providers:
� Escalation of care including admission/observation vs risk of discharge considered: The patient's laceration was cleaned, irrigated, and glued and Steri-Strips placed. Since the patient had some difficulty walking with her
walker, hip x-ray was obtained.
Past History
Past History
ED Past Medical History: GERD, Seizures (On Kepra) and Other (Scoliosis)
ED Past Surgical History: Appendectomy, Gynecological (Hysterectomy) and Orthopedic
Social History
Tobacco: Non-smoker
Alcohol: None
Drug: None
Living: [facility]
Phy Exam
Physical Exam
Physical Exam:
See HPI
Course
Orders/Labs/Results
Orders:
Orders
03/16/24 13:01
CT Cervical Spine W/o Iv Contr Urgent
Comment:
Reason For Exam: trauma pain
CT Head W/o Iv Contrast Urgent
Comment:
Reason For Exam: trauma pain
CR Hand - Right Min 3 Views Urgent
Comment:
Reason For Exam: trauma
03/16/24 15:01
CR Hip - RT w/wo Pel 2-3 Vw* Urgent
Reason For Exam: fall pain
Include a pelvis x-ray?: Yes
Vital Signs
Initial and Last Documented VS:
Initial Vital Signs
Temp Pulse Resp BP Pulse Ox
98.2 F 81 18 136/58 95
03/16/24 12:17 03/16/24 12:17 03/16/24 12:17 03/16/24 12:17 03/16/24 12:17
Last Documented Vital Signs
Temp Pulse Resp BP Pulse Ox
98.2 F 81 18 136/58 95
03/16/24 12:17 03/16/24 12:17 03/16/24 12:17 03/16/24 12:17 03/16/24 12:17
Procedures
Laceration Closure
Right Dorsal Hand:
Status of Wound: clean
Size of Wound in cm: 6
Description of Wound Edges: ragged
Preparation: cleaned with SurClens
Wound exploration: explored to base- no FB
Type of Closure: Dermabond-skin glue
Skin Closure Material: other (Steri-Strips and skin adhesive used)
*Critical Care Note
Total Time (30-74mins, 75-104mins- exclusive of procedures): Not Applicable
ED Attending Note
-
Portions of this chart may have been created with voice recognition software.� Occasional wrong word or��sound alike� substitutions may have occurred due to the inherent limitations of voice recognition software.
Discharge Plan
Departure
Patient Disposition: Home (Routine Discharge)
Date of Disposition: 03/16/24
Time of Disposition: 16:17
Patient with high blood pressure during this ER visit?: Yes
Discharge Problem:
Hand laceration
Instructions: Laceration Repair With Glue (DC), Preventing Falls ED
Prescriptions:
No Action
atorvastatin 20 mg tablet
20 mg PO HS
aspirin 81 mg Tablet,Delayed Release (Dr/Ec)
81 mg PO DAILY
famotidine [Pepcid AC] 20 mg Tablet
20 mg PO DAILYPRN PRN (Reason: gerd)
calcium carbonate [Tums] 200 mg calcium (500 mg) Tablet,Chewable
400 mg PO BIDPRN PRN (Reason: gas) Qty: 0
furosemide 20 mg Tablet
20 mg PO DAILY
Systane (PF) 0.4-0.3 % Dropperette
2 drp BOTH EYES [id number] PRN (Reason: dry eyes)
cholecalciferol (vitamin D3) 25 mcg (1,000 unit) Tablet
25 mcg PO DAILY
levetiracetam 500 mg tablet
500 mg PO HS Qty: 30 0RF
potassium chloride 20 mEq Tablet Extended Release
20 meq PO DAILY
lamotrigine 150 mg tablet
150 mg PO BID
miconazole nitrate [Desenex] 2 % Powder
1 applic TOPICAL PRN PRN (Reason: toileting)
Premarin 0.625 mg/gram cream
1 applic vaginal PRN PRN (Reason: toileting)
loratadine 10 mg Tablet
10 mg PO DAILYPRN PRN (Reason: allergies)
Referrals:
Yordy Hutchinson MD [Family Provider] -
Activity Restrictions/Additional Instructions:
The right-handed right hip x-rays do not show any clear signs of broken bone. The CAT scan of the brain and of the cervical spine do not show any signs of bleeding or broken bone. Tylenol is safest for pain. Follow-up your primary care doctor
return here if worse.
Interventions
Interventions:
*Risk Screen - Suicide Last Done: 03/16/24 12:54
*Neglect/Abuse Screening Last Done: 03/16/24 12:54
*ED COVID-19 Vaccine History Last Done: 03/16/24 12:54
ED-Skin Assessment Last Done: 03/16/24 12:54
Discharge Date and Time
Print Language: YAKUT
[2024-03-16] MEDS: TYLENOL 650 MG PO (16:47)
[2024-03-16] MEDS: ADACEL 0.5 ML IM (17:05)
== END 2024-03-16 18:10 | disposition home or self-care (01) ==
LOC: EMR 12:15
PROVIDERS: EMERGENCY PHYSICIAN Emergency Medicine; FAMILY PHYSICIAN Family Medicine
DX: S61.411A Laceration without foreign body of right hand, initial encounter (principal); R51.9 Headache, unspecified; W19.XXXA Unspecified fall, initial encounter; K21.9 Gastro-esophageal reflux disease without esophagitis; G40.909 Epilepsy, unspecified, not intractable, without status epilepticus; Z79.82 Long term (current) use of aspirin; Z79.899 Other long term (current) drug therapy; Z23 Encounter for immunization
CPT/HCPCS: 12002; 90471; 99284; 70450; 72125; 72192; 73130; 73502; 90715

== ENCOUNTER → 2024-04-05 07:56 | Outpatient (REF) | payer OTHER, SELFPAY | LOC: RST 07:56 | PROVIDERS: ATTENDING PHYSICIAN Family Medicine | DX: Z76.89 Persons encountering health services in other specified circumstances (principal) | CPT/HCPCS: 74230; 92611 ==

== ENCOUNTER → 2024-05-03 10:54 | Outpatient (REF) | payer OTHER, SELFPAY ==
--- NOTE | 2024-05-03 13:12 | EEG.RPT ---
Electroencephalogram Report
Recording
Date of EE05/03/24
Type of EEG: Routine
Length of EEG recordin minutes
Done with Video Recording: Yes
Patient Status: Outpatient
Recording Conditions: Awake, Drowsy and Asleep
Hyperventilation Performed: No
Photic Stimulation Performed: Yes
Report
GREATER THAN 1 HOUR EEG REPORT
GREATER THAN 1 HOUR EEG INTERPRETATION:
Severely abnormal EEG for age due to frequent non-convulsive seizures on 3 occasions during the study
CLINICAL CORRELATION:
This study was suggestive of generalizing spike and wave discharges rarely suggestive of epilepsy risk. Immediate clinical correlation is advised.
METHODS:
A 21 channel digitized electroencephalogram (EEG) was performed at the bedside in the intensive care unit. The 10/20 international system of electrode placement was used with ECG and lateral/vertical eye movements recorded.
ELECTROENCEPHALOGRAPHER IMPRESSION(S):
Quality of study: Good
Background
Maximum: alpha
Amplitude: medium
Anterior-posterior gradient: unremarkable
Sleep
Drowsiness demonstrated by attenuation of the background rhythm
Hyperventilation
Not performed
Photic Stimulation
Produced symmetric driving at some intermediate flash frequencies
ECG
Normal sinus rhythm
ABNORMAL EEG Activity
On 4 separate occasions were seen spike and wave discharges of 0.5 Hz, single discharges, unchanged by photic stimulation
== END ==
LOC: EEG 10:54
PROVIDERS: ATTENDING PHYSICIAN Nurse Practitioner Adult Health; FAMILY PHYSICIAN Family Medicine
DX: G40.009 Localization-related (focal) (partial) idiopathic epilepsy and epileptic syndromes with seizures of localized onset, not intractable, without status epilepticus (principal)
CPT/HCPCS: 95813

== ENCOUNTER → 2024-05-17 16:12 | Outpatient (REF) | payer OTHER, SELFPAY | LOC: RAD 16:12 | PROVIDERS: ATTENDING PHYSICIAN Physician Assistant; FAMILY PHYSICIAN Family Medicine | DX: R06.09 Other forms of dyspnea (principal); R60.0 Localized edema | CPT/HCPCS: 71046 ==

== ENCOUNTER → 2024-07-15 13:27 | Outpatient (REF) | payer OTHER, SELFPAY | LOC: RAD 13:27 | PROVIDERS: ATTENDING PHYSICIAN Family Medicine | DX: M79.89 Other specified soft tissue disorders (principal) | CPT/HCPCS: 93971 ==

== ENCOUNTER → 2024-09-07 11:00 | Outpatient (REF) | payer OTHER, SELFPAY ==
--- NOTE | 2024-09-07 14:28 | EEG.RPT ---
Electroencephalogram Report
Recording
Date of EE09/07/24
Type of EEG: Routine
Length of EEG recordin minutes
Done with Video Recording: Yes
Patient Status: Outpatient
Recording Conditions: Awake and Drowsy
Hyperventilation Performed: No
Photic Stimulation Performed: Yes
Report
LESS THAN 1 HOUR EEG REPORT
LESS THAN 1 HOUR EEG INTERPRETATION:
Likely unremarkable EEG for age
CLINICAL CORRELATION:
Although normative values have not been established for a person of this advanced age, the patient�s symmetry of the background suggested that this study was unremarkable.
A normal EEG does not rule out a diagnosis of epilepsy. If clinical suspicion for seizure persists, a prolonged recording may be warranted.
Clinical correlation is advised.
METHODS:
A 21 channel digitized electroencephalogram (EEG) was performed using the 10/20 international system of electrode placement and one-lead of ECG recorded. Persyst quantitative EEG analysis was performed.
ELECTROENCEPHALOGRAPHER IMPRESSION(S):
Quality of study
Good
Background
There was an unremarkable anterior-posterior voltage gradient of alpha frequency.
With eye opening the background activity changed to a low voltage mixture of frequencies.
There were no significant asymmetries of background activity noted.
Sleep
Drowsiness present
Photic Stimulation
No driving
ECG
Normal sinus rhythm
== END ==
LOC: EEG 11:00
PROVIDERS: ATTENDING PHYSICIAN Nurse Practitioner Adult Health; FAMILY PHYSICIAN Family Medicine
DX: G40.009 Localization-related (focal) (partial) idiopathic epilepsy and epileptic syndromes with seizures of localized onset, not intractable, without status epilepticus (principal)
CPT/HCPCS: 95813

== ENCOUNTER 2024-11-23 04:34 | Inpatient (IN) | payer OTHER, SELFPAY ==
[2024-11-22 23:21] VITALS: BP 135/57
[2024-11-22 23:24] VITALS: BP 135/57
[2024-11-22 23:56] LABS: % Basophils 0.9 % (0-2); % Eosinophils 2.4 % (0-6); % Immature Granulocytes 0.3 % (0-0.5); % Lymphocytes 21.3 % (20.5-51.1); % Neutrophils 66.1 % (42.2-75.2); Absolute Basophils 0.1 10^3/uL (0-0.2); Absolute Eosinophils 0.2 10^3/uL (0-0.7); Absolute Lymphocytes 1.4 10^3/uL (1.2-3.4); Absolute Monocytes 0.6 10^3/uL (0.1-0.6); Absolute Neutrophils 4.4 10^3/uL (1.4-6.5); Hemoglobin 8.3 g/dL (12.0-16.0); Mean Corp Hgb Conc. 34.6 g/dL (33.0-37.0); Mean Corpuscular Hgb 36.1 pg (27.0-31.0); Mean Corpuscular Volume 104.3 fL (81.0-99.0); Mean Platelet Volume 11.1 fL (7.4-10.4); Nucleated Red Blood Cells % 0 %; Platelet Count 231 10^3/uL (130-400); Red Cell Dist. Width 16.9 % (11.5-14.5); White Blood Cell Count 6.7 10^3/uL (4.8-10.8)
[2024-11-23] VITALS (13 sets, daily range): BP systolic 112–146; BP diastolic 45–69; PULSE 70; BMI 17.3
[2024-11-23 00:11] LABS: ALT (SGPT) 30 U/L (0-35); AST (SGOT) 37 U/L (14-36); Albumin 4.4 g/dl (3.5-5.0); Alkaline Phosphatase 84 U/L (38-126); Blood Urea Nitrogen 22 mg/dl (7-17); Calcium 10.3 mg/dl (8.4-10.2); Carbon Dioxide 31 mmol/L (22-30); Chloride 98 mmol/L (98-107); Estimated Creatinine Clearance 20 ml/min; Glucose 134 mg/dl (70-99); Lipase 396 U/L (23-300); Potassium 3.5 mmol/L (3.5-5.1); Sodium 137 mmol/L (135-145); Total Bilirubin 1.6 mg/dl (0.2-1.3); eGFR 43.81
--- NOTE | 2024-11-23 01:47 | ED.GENMED ---
History of Present Illness
General
Chief Complaint: Abdominal Symptoms
Source: patient and family (Daughter states patient has been unsteady on her feet, confused)
Exam Limitations: none
Time Seen by Provider: 11/23/24 01:32
Nursing documentation reviewed up to this point in time: agreed with
History of Present Illness
History of Present Illness:
89-year-old female presents emergency department due to diarrhea, increased weakness and confusion. She is typically not confused, today she is alert and oriented only x 2. She called her daughter when she was going to the bathroom, and she was
unable to get up from the toilet.
Past History
Past History
ED Past Medical History: GERD, Seizures (On Kepra) and Other (Scoliosis)
ED Past Surgical History: Appendectomy, Gynecological (Hysterectomy) and Orthopedic
Social History
Tobacco: Non-smoker
Alcohol: None
Drug: None
Living: prison
Review of Systems
Review of Systems
Allergies reviewed?: Yes
All Other Systems: Not applicable
Constitutional: Reports no symptoms
EENT: Reports no symptoms
Respiratory: Reports no symptoms
Cardiac: Reports no symptoms
ABD/GI: Reports diarrhea
: Reports no symptoms
Musculoskeletal: Reports no symptoms
Skin: Reports no symptoms
Neurological: Reports weakness and other (Confusion)
Endocrine: Reports no symptoms
Hematologic/Lymphatic: Reports no symptoms
Psychiatric: Reports no symptoms
Phy Exam
Physical Exam
Physical Exam:
Physical Exam
General: no apparent distress, not acutely ill
Neck: supple. no meningeal signs. normal posterior pharynx
Heart: s1/s2 regular rate and rhythm, no murmur. equal radial
pulses.
HEENT: Pupils equal round reactive to light, EOMI
Lungs: no acute respiratory distress. clear bilaterally
Abdomen: normal bowel sounds. not tender. no CVAT
Neuro: alert and oriented. no focal neurological deficits
Skin: no rash
Psychiatric: well kept. interactive and cooperative
Extremities: no edema. no calf tenderness. negative homans. good distal pulses
Course
Orders/Labs/Results
Orders:
Orders
11/22/24 23:39
IV Insert/Care/Rem.- Treatment PRN
11/22/24 23:46
Complete Blood Count/With Diff Urgent
Comprehensive Metabolic Panel Urgent
Lipase Urgent
11/23/24 01:45
Straight cath- Treatment ONCE
11/23/24 01:46
CT Head W/o Iv Contrast Urgent
Comment:
Reason For Exam: confusion, fall
11/23/24 02:21
Urinalysis Reflex To Culture Urgent
Date Specimen was Collected: 11/23/24
Time Specimen was Collected: 02:13
Urine Microscopic Reflex Cult Urgent
11/23/24 03:22
Lactated Ringers [Lr] 500 ml IV BOLUS
Abnormal Lab Results
11/22/24 11/23/24
23:46 02:21
RBC 2.30 L 10^6/uL
(4.20-5.40)
Hgb 8.3 L g/dL
(12.0-16.0)
Hct 24.0 L %
(37.0-47.0)
MCV 104.3 H fL
(81.0-99.0)
MCH 36.1 H pg
(27.0-31.0)
RDW 16.9 H %
(11.5-14.5)
MPV 11.1 H fL
(7.4-10.4)
Carbon Dioxide 31 H mmol/L
(22-30)
BUN 22 H mg/dl
(7-17)
Creatinine 1.2 H mg/dL
(0.6-1.0)
Glucose 134 H mg/dl
(70-99)
Calcium 10.3 H mg/dl
(8.4-10.2)
Total Bilirubin 1.6 H mg/dl
(0.2-1.3)
AST 37 H U/L
(14-36)
Total Protein 6.0 L g/dl
(6.3-8.2)
Lipase 396 H U/L
(23-300)
Urine Albumin (Reflex) 2+ A
(Neg - Trace)
11/22/24 23:46
11/22/24 23:46
Vital Signs
Initial and Last Documented VS:
Initial Vital Signs
Temp Pulse Resp BP Pulse Ox
97.8 F 83 18 135/57 97
11/22/24 23:21 11/22/24 23:21 11/22/24 23:21 11/22/24 23:21 11/22/24 23:21
Last Documented Vital Signs
Temp Pulse Resp BP Pulse Ox
97.8 F 83 18 135/57 97
11/22/24 23:21 11/22/24 23:21 11/22/24 23:21 11/22/24 23:21 11/22/24 23:21
MDM/Problems Addressed
Differential Diagnosis Includes:
CVA, UTI, hypovolemia
MDM/Problems Addressed:
89-year-old female with hypovolemia, altered mental status, difficulty walking. Unclear etiology. CT head no acute findings. Admit to hospitalist for IV fluids, further workup.
Chronic conditions affecting care: Neurological disorder (Seizures)
*Radiology
Radiology exam reviewed: radiology read reviewed (CT head no acute findings)
*Pulse Oximetry
Patient hypoxic: no
*Patrol Driver Interpretation
Rate: normal
Interpretation: normal
Heart Rate: 80
Rhythm: sinus
*Critical Care Note
Total Time (30-74mins, 75-104mins- exclusive of procedures): Not Applicable
Data Reviewed
Review of Other/Old Records Reveals: Labs (Prior creatinine 0.6)
Source: records
Patient Management
Social determinants of health affecting care: Living situation and Strong social support
Discussion with other providers: Hospitalist
Escalation/DeEscalation of care consider admission/obs:
Admit indicated
ED Attending Note
-
Portions of this chart may have been created with voice recognition software.� Occasional wrong word or��sound alike� substitutions may have occurred due to the inherent limitations of voice recognition software.
Discharge Plan
Departure
Patient Disposition: Admit
Date of Disposition: 11/23/24
Time of Disposition: 03:23
Admit to: Telemetry
Presentation/result/management discussed w/ accepting MD/DO: Hospitalist
Patient with high blood pressure during this ER visit?: Yes
Condition: Fair
Discharge Problem:
Acute alteration in mental status, Hypovolemia
Prescriptions:
No Action
atorvastatin 20 mg tablet
20 mg PO HS
aspirin 81 mg Tablet,Delayed Release (Dr/Ec)
81 mg PO DAILY
famotidine [Pepcid AC] 20 mg Tablet
20 mg PO DAILYPRN PRN (Reason: gerd)
calcium carbonate [Tums] 200 mg calcium (500 mg) Tablet,Chewable
400 mg PO BIDPRN PRN (Reason: gas) Qty: 0
furosemide 20 mg Tablet
20 mg PO DAILY
Systane (PF) 0.4-0.3 % Dropperette
2 drp BOTH EYES [id number] PRN (Reason: dry eyes)
cholecalciferol (vitamin D3) 25 mcg (1,000 unit) Tablet
25 mcg PO DAILY
levetiracetam 500 mg tablet
500 mg PO HS Qty: 30 0RF
potassium chloride 20 mEq Tablet Extended Release
20 meq PO DAILY
lamotrigine 150 mg tablet
150 mg PO BID
miconazole nitrate [Desenex] 2 % Powder
1 applic TOPICAL PRN PRN (Reason: toileting)
Premarin 0.625 mg/gram cream
1 applic vaginal PRN PRN (Reason: toileting)
loratadine 10 mg Tablet
10 mg PO DAILYPRN PRN (Reason: allergies)
Referrals:
Yordy Hutchinson MD [Family Provider] -
Interventions
Interventions:
*Risk Screen - Suicide Last Done: 11/22/24 23:21
*General Assessment Last Done: 11/22/24 23:21
*Neglect/Abuse Screening Last Done: 11/22/24 23:21
*ED- Fall Risk Assessment Last Done: 11/22/24 23:21
*ED COVID-19 Vaccine History Last Done: 11/22/24 23:21
BE-Wrhdvz-Ygfvxjmyoe Assessment Last Done: 11/23/24 00:02
Discharge Date and Time
Print Language: SERBIAN
[2024-11-23 02:46] LABS: Urine Albumin 2+ (Neg - Trace); Urine Bilirubin Negative (Negative); Urine Character Clear (Clear); Urine Color Amber; Urine Glucose Negative (Negative); Urine Ketone Negative (Negative); Urine Leukocyte Negative (Negative); Urine Nitrite Negative (Negative); Urine Occult Blood Negative (Negative); Urine Specific Gravity 1.025 (<1.030); Urine Urobilinogen Negative (Neg - 1+)
[2024-11-23 03:01] LABS: Urine Mucus Moderate; Urine Squamous Cell 16-20 /LPF (Few)
[2024-11-23 03:05] LABS: Urine Red Blood Cell None Seen /HPF (0-2); Urine White Cell 0-2 /HPF (0-5)
[2024-11-23] MEDS: LR 500 IV (03:29)
--- NOTE | 2024-11-23 04:00 | HPS.HSE ---
Family Physician
-
Family Physician: Yordy Hutchinson
Chief Complaint
-
Weakness, Diarrhea
History of Present Illness
Patient is an 89y F with PMH significant for IBS / GERD, seizure disorder and prior TIA who presents to ED complaining of diarrhea and weakness. History obtained from patient and her daughter at the bedside. Patient has history of intermittent
diarrhea / IBS-D. She has been having such issues now for the past 2 weeks. Daughter notes that patient has typically been very good about keeping up with PO intake / fluids; however, recently she has been struggling with this. She has become
progressively more weak and has been less active around the house. This evening, patient went to the bathroom and had an episode of diarrhea. She was then unable to get off of the toilet. Her daughter attempted to help her for over an hour
without any progress. 911 was called and patient brought to the ED for further evaluation.
Daughter also notes that the patient has seemed more confused - especially this evening.
Medical History
Past Medical History
Past Medical History: Reports Other
Additional Past Medical History:
Seizure Disorder / Focal Epilepsy
IBS-D
GERD
Chronic Anemia
TIA
Past Surgical History: Reports Other
Additional Past Surgical History:
HAILY / BSO
Cholecystectomy
Appendectomy
Right TSA
Right Hip ORIF
Social History
Tobacco: Non-smoker
Alcohol: None
Drug: None
Family History
Family History: Not pertinent
Allergies / Home Medications
Allergies reflects when Allergies were last updated in [facility].
Home Medications with original date entered in [facility]
Allergy/Medication List:
Allergies
Allergy/AdvReac Type Severity Reaction Status Date / Time
bacitracin Allergy Unknown Verified 01/11/24 06:21
erythromycin base Allergy Unknown Verified 01/11/24 06:21
Gramicidins Allergy Unknown Verified 01/11/24 06:21
iodine Allergy Unknown Verified 01/11/24 06:21
neomycin Allergy Unknown Verified 01/11/24 06:21
Penicillins Allergy patient Verified 01/11/24 06:21
states she
gets mouth
swelling
with
penicillin
polymyxin B Allergy Unknown Verified 01/11/24 06:21
povidone-iodine Allergy Unknown Verified 01/11/24 06:21
soap Allergy Unknown Verified 01/11/24 06:21
Sulfa (Sulfonamide Allergy Unknown Verified 01/11/24 06:21
Antibiotics)
sulfamethoxazole Allergy Unknown Verified 01/11/24 06:21
tetracycline Allergy Unknown Verified 01/11/24 06:21
trimethoprim Allergy Unknown Verified 01/11/24 06:21
Home Medications
atorvastatin 20 mg tablet 20 mg PO HS High Cholesterol 04/03/23
aspirin 81 mg tablet,delayed release 81 mg PO DAILY Blood Clot Prevention/Tx 12/29/23
cholecalciferol (vitamin D3) 25 mcg (1,000 unit) tablet 50 mcg PO DAILY Supplement 12/29/23
famotidine 20 mg tablet (Pepcid AC) 20 mg PO BID 12/29/23
furosemide 20 mg tablet 40 mg PO DAILY Fluid Retention/Swelling 12/29/23
levetiracetam 500 mg tablet 500 mg PO HS #30 tabs 01/02/24
potassium chloride 20 mEq tablet,extended release 20 meq PO DAILY Supplement 01/11/24
lamotrigine 150 mg tablet 150 mg PO BID Seizures 02/06/24
ferrous sulfate 325 mg (65 mg iron) tablet 325 mg PO DAILY 11/23/24
Review of Systems
-
History Source: Patient and Family
A 12 point ROS was completed and negative except as noted: Yes
Constitutional: Reports Fatigue; Denies Fever or Chills
EENT: Denies Sore Throat
Respiratory: Denies Cough or Trouble Breathing
Cardiac: Denies Chest Pain or Palpitations
Abdomen/GI: Reports Diarrhea and Anorexia; Denies Abdominal Pain, Nausea, Vomiting, Bloody Stools or Black Stools
: Denies Dysuria or Frequency
Musculoskeletal: Reports Edema; Denies Joint Pain
Neurological: Reports Weakness; Denies Dizzy or Headache
Psych: Denies Depression or Anxiety
Physical Exam
Vital Signs
Vital Signs
Temp Pulse Resp BP Pulse Ox
97.8 F 83 18 135/57 97
11/22/24 23:21 11/22/24 23:21 11/22/24 23:21 11/22/24 23:21 11/22/24 23:21
Physical Exam
General: Other (Frail, elderly female in no acute distress. Somewhat rambling speech; however, her details are appropriate / correct.)
HEENT: Other (Dry MM. Neck supple.)
Respiratory: Clear; No Wheezes, Rales or Rhonchi
Cardiac: S1/S2 and Regular Rhythm; No Murmur
GI: Soft, Non Tender, Non Distended and Normal Bowel Sounds
Musculoskeletal: No Clubbing, No Cyanosis and No Edema
Neuro: AO x 3 and Nonfocal/grossly intact
Laboratory Results
-
11/22/24 23:46
11/22/24 23:46
Laboratory Results
Total Bilirubin 1.6 mg/dl (0.2-1.3) H 11/22/24 23:46
AST 37 U/L (14-36) H 11/22/24 23:46
ALT 30 U/L (0-35) 11/22/24 23:46
Alkaline Phosphatase 84 U/L (38-126) 11/22/24 23:46
Lipase 396 U/L (23-300) H 11/22/24 23:46
Impression/Plan
-
A/P: Patient is an 89y F with PMH significant for IBS-D, focal epilepsy and chronic anemia who presents to ED for evaluation of diarrhea, weakness and some confusion.
Diarrhea + Poor PO Intake
Hypovolemia secondary to the above
ERNST secondary to the above
- Admit for further evaluation and treatment.
- 2 weeks at least of ongoing diarrhea and poor oral intake.
- Now progressively more weak and some confusion / TME.
- SCr = 1.2 compared to known baseline of 0.6.
- Hold diuretics.
- IVF support.
- Follow frequency of stools. Check stool studies if additional diarrhea.
- BRAT diet. Supportive care.
- Follow for clinical improvement.
Focal Epilepsy
- No witnessed seizure activity.
- Some recent confusion - but seems more corresponding to hypovolemia / TME than seizure or post-ictal state.
- Continue current AEDs.
- Seizure precautions.
Chronic Macrocytic Anemia
- Stable. Hgb is at / near known baseline.
- Chronic macrocytosis and multiple prior B12 / folate studies have shown very high levels.
- ? underlying MDS. Consider outpatient Hematology evaluation.
LE Edema
- No noted history of heart disease, CHF, etc.
- On diuretics for about 4 months (and supplemental potassium) for ankle swelling.
- Stop diuretic. Use compression / TEDs / elevation for edema management.
Abnormal LFTs
- No upper GI complaints including abdominal pain, N/V, etc.
- Follow LFTs for any changes.
- Check US in AM.
Prior TIA
- No new focal deficits. Continue ASA.
DVT Prophylaxis: SCDs
Code Status: DNR
[2024-11-23] MEDS: KEPPRA 500 MG PO ×2 (05:48→18:58)
[2024-11-23] MEDS: LR 1000 IV ×2 (06:00→17:20)
[2024-11-23 06:05] LABS: Hematocrit 21.3 % (37.0-47.0); Hemoglobin 7.5 g/dL (12.0-16.0); Mean Corp Hgb Conc. 35.2 g/dL (33.0-37.0); Mean Corpuscular Hgb 36.4 pg (27.0-31.0); Mean Corpuscular Volume 103.4 fL (81.0-99.0); Mean Platelet Volume 10.2 fL (7.4-10.4); Platelet Count 189 10^3/uL (130-400); Red Blood Cell Count 2.06 10^6/uL (4.20-5.40); Red Cell Dist. Width 16.7 % (11.5-14.5); White Blood Cell Count 5.9 10^3/uL (4.8-10.8)
[2024-11-23 06:20] LABS: ALT (SGPT) 28 U/L (0-35); AST (SGOT) 38 U/L (14-36); Albumin 3.9 g/dl (3.5-5.0); Alkaline Phosphatase 64 U/L (38-126); Blood Urea Nitrogen 20 mg/dl (7-17); Calcium 9.8 mg/dl (8.4-10.2); Carbon Dioxide 32 mmol/L (22-30); Chloride 102 mmol/L (98-107); Direct Bilirubin 0.2 mg/dl (0.0-0.4); Estimated Creatinine Clearance 27 ml/min; Glucose 100 mg/dl (70-99); Magnesium 1.7 mg/dl (1.6-2.3); Potassium 3.4 mmol/L (3.5-5.1); Sodium 138 mmol/L (135-145); Total Bilirubin 1.4 mg/dl (0.2-1.3); Total Protein 5.5 g/dl (6.3-8.2); eGFR > 60.00
[2024-11-23 06:49] LABS: TSH Reflex To Free T4 1.94 uIU/ml (0.47-4.68)
--- NOTE | 2024-11-23 07:15 | EDRN ---
Not steady to stand
[2024-11-23] MEDS: LR IV (07:20)
[2024-11-23] MEDS: LAMICTAL 150 MG PO ×2 (08:12→20:56)
[2024-11-23] MEDS: PEPCID 20 MG PO (08:12)
[2024-11-23] MEDS: ASPIR LOW (ENTERIC COATED) 81 MG PO (08:14)
--- NOTE | 2024-11-23 09:37 | W.PN.HOSP.TC ---
Today's Communication/Plan
-
IV hydration
Replete potassium.
Monitor closely for recurrent diarrhea
Follow hemoglobin.
Continue antiepileptics monitoring mental status closely.
PT/OT assessment
Assessment / Plan
Assessment / Plan
Impression:
Patient is an 89y F with PMH significant for IBS-D, focal epilepsy and chronic anemia who presents to ED for evaluation of diarrhea, weakness and some confusion.
Metabolic encephalopathy.
Failure to thrive is reported poor oral intake.
Reported diarrhea with history of IBS�diarrheal type.
ERNST
Hypokalemia
Hyperbilirubinemia
Focal epilepsy.
Chronic macrocytic anemia.
Chronic lower extremity edema.
History of TIA
Protein calorie malnutrition with BMI of 16.9
Plan:
Presentation with confusion and generalized fatigue and weakness
Toxic metabolic encephalopathy likely multifactorial in settings of dehydration and likely cumulative effect of antiepileptics in the settings of decreased renal clearance
No focal findings on exam
CT scan of the head with no acute abnormality.
Continue to monitor mental status with hydration and supportive care
Hypovolemia secondary to reported diarrhea.
ERNST
Hypokalemia.
Creatinine 1.2 upon presentation with normal baseline.
Hold Lasix
IV fluid support with isotonic solution
Replete potassium
Reported diarrhea
History of IBS diarrheal type.
No records of GI evaluation.
Reported no diarrhea or loose stools since admission to ED.
Exam with benign abdomen.
Monitor closely. If recurrent/persistent consider GI evaluation including stool cultures, imaging, GI consult.
Noted with isolated hyperbilirubinemia improving with IV hydration.
US abdomen pending.
Trend LFT
Continue BRAT diet
Focal Epilepsy
- No witnessed seizure activity.
- Some recent confusion - but seems more corresponding to hypovolemia / TME than seizure or post-ictal state.
- Continue current AEDs.
- Seizure precautions.
Chronic Macrocytic Anemia
- Stable. Hgb is at / near known baseline.
- Chronic macrocytosis and multiple prior B12 / folate studies have shown very high levels.
- ? underlying MDS. Consider outpatient Hematology evaluation.
LE Edema
- No noted history of heart disease, CHF, etc.
- On diuretics for about 4 months (and supplemental potassium) for ankle swelling.
- Stop diuretic. Use compression / TEDs / elevation for edema management.
Anticipated Discharge: 24 - 48 hours
Subjective/Interval History
-
Date of Service: November 23, 2024
Objective Data
-
Labs:
Laboratory Results
11/22/24 11/23/24
23:46 05:43
WBC 6.7 5.9
Hgb 8.3 L 7.5 L
Hct 24.0 L 21.3 L
Plt Count 231 189
Sodium 137 138
Potassium 3.5 3.4 L
Chloride 98 102
Carbon Dioxide 31 H 32 H
BUN 22 H 20 H
Creatinine 1.2 H 0.9
Glucose 134 H 100 H
Calcium 10.3 H 9.8
Total Bilirubin 1.6 H 1.4 H
AST 37 H 38 H
ALT 30 28
Alkaline Phosphatase 84 64
Vital Signs:
Vital Signs
Temp Pulse Resp BP Pulse Ox
98 F 69 16 123/46 95
11/23/24 07:12 11/23/24 07:12 11/23/24 07:12 11/23/24 07:15 11/23/24 07:15
Physical Exam
-
General: Well Developed and No Apparent Distress
HEENT: Normocephalic, Atraumatic and Moist Mucous Membranes
Respiratory: Clear to Auscultation
Cardiac: Regular Rhythm and S1/S2; Negative Murmur, Rub or Gallop
GI: Soft, Nontender, Nondistended and Normal Bowel Sounds; Negative Organomegaly
Rectal: Deferred by Provider
Musculoskeletal: No Clubbing, No Cyanosis and No Edema
Skin: Negative Rash
Neuro: Awake, Alert, Oriented (To name and birthday not in place.), AO x 3 and Nonfocal/Grossly Intact
--- NOTE | 2024-11-23 10:45 | CM ---
CM spoke with dtr/Yanci
Pt resides alone in an in-law suite attached to dtr's home
Pt is indep with ambulation, dressing and toileting with use of a blayne WW
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
Pt has hx with [facility] and WEL
Pt AxO to person and placed at baseline, no dangerous behaviors
PCP- Yordy Hutchinson
Rx- [facility]
Pt's spouse passed in January 2024 at [facility]
Per dtr, pt is fearful of DH and hospitalizations due to experience with her 's passing
Dtr requesting SNF be arranged on dc to [facility]
Dtr with knee and back issues and has been delaying needed surgeries due to caregiving for her parents
PT eval pending
TT/Dr Lam requesting OT order as pt will require auth for SNF
Discharge Disposition- home withj VN vs SNF (family requesting SNF)
[2024-11-23] MEDS: KCL ELIXIR 40 MEQ PO (11:19)
--- NOTE | 2024-11-23 11:45 | PTCARENOTE ---
Assumed care of patient at aprox 1115-. Bed alarm placed. Pt confused to time and place. Pt given oral K+ and drank most of it. Difficult due do taste. Pt turned and repositioned. Pt with some abrasions with bandages from home. Also some bruising
noted. Large bruise to left hip. Pt denies pain. Call gallardo within reach.
--- NOTE | 2024-11-23 19:48 | PTCARENOTE ---
Patient admitted to [facility] about 1830hrs. VS obtained and WNL. Skin assessed and linens changed. Oriented to room, confused, pleasant, cooperative.. Daughter present. Dinner time meal served.
[2024-11-24] MEDS: LR 1000 IV (01:55)
[2024-11-24] MEDS: KEPPRA 500 MG PO ×2 (05:42→16:38)
[2024-11-24 06:31] LABS: % Basophils 0.7 % (0-2); % Eosinophils 2.5 % (0-6); % Immature Granulocytes 0.4 % (0-0.5); % Lymphocytes 18.5 % (20.5-51.1); % Neutrophils 71.9 % (42.2-75.2); Absolute Basophils 0.1 10^3/uL (0-0.2); Absolute Eosinophils 0.2 10^3/uL (0-0.7); Absolute Lymphocytes 1.4 10^3/uL (1.2-3.4); Absolute Monocytes 0.5 10^3/uL (0.1-0.6); Absolute Neutrophils 5.4 10^3/uL (1.4-6.5); Hematocrit 22.2 % (37.0-47.0); Hemoglobin 7.8 g/dL (12.0-16.0); Mean Corp Hgb Conc. 35.1 g/dL (33.0-37.0); Mean Corpuscular Hgb 36.4 pg (27.0-31.0); Mean Corpuscular Volume 103.7 fL (81.0-99.0); Mean Platelet Volume 10.2 fL (7.4-10.4); Nucleated Red Blood Cells % 0 %; Platelet Count 193 10^3/uL (130-400); Red Blood Cell Count 2.14 10^6/uL (4.20-5.40); Red Cell Dist. Width 16.7 % (11.5-14.5); White Blood Cell Count 7.6 10^3/uL (4.8-10.8)
[2024-11-24 06:59] LABS: ALT (SGPT) 27 U/L (0-35); AST (SGOT) 38 U/L (14-36); Albumin 3.5 g/dl (3.5-5.0); Alkaline Phosphatase 74 U/L (38-126); Blood Urea Nitrogen 9 mg/dl (7-17); Calcium 9.5 mg/dl (8.4-10.2); Carbon Dioxide 31 mmol/L (22-30); Chloride 106 mmol/L (98-107); Estimated Creatinine Clearance 36 ml/min; Glucose 89 mg/dl (70-99); Sodium 139 mmol/L (135-145); Total Bilirubin 1.6 mg/dl (0.2-1.3); Total Protein 5.1 g/dl (6.3-8.2); eGFR > 60.00
[2024-11-24 07:20] VITALS: BP 140/54
[2024-11-24] MEDS: ASPIR LOW (ENTERIC COATED) 81 MG PO (08:47)
[2024-11-24] MEDS: LAMICTAL 150 MG PO (08:47)
--- NOTE | 2024-11-24 09:43 | CM ---
CM following for discharge planning. Daughter requesting transfer to [facility] for rehab. PT recommending SNF; OT evaluation pending.
Plan: CM to follow to coordinate SNF transfer pending OT evaluation. Will need to obtain insurance authorization from [place] [id number] once SNF bed has been identified.
[2024-11-24 10:45] VITALS: BP 136/51; PULSE 76; O2SAT 96
[2024-11-24 10:53] VITALS: BP 136/51; PULSE 77; O2SAT 95
--- NOTE | 2024-11-24 13:23 | CM ---
Addendum entered by Clementine Bruno 11/24/24 14:25:
SNF authorization in process for pt to transfer to [facility]. Ambulance transport request and [facility] completed. Covid test is required by [facility]; TT to Dr. Lam to request order for Covid test.
Original Note:
CM following for discharge planning. Pt's daughter would like her mother to go to [facility] for SNF.
Referrals sent to [facility], [facility]; all facilities have a bed availabe for today if pt is medically stable.
Plan: CM will obtain insurance authorization from [place] [id number] once SNF bed has been confirmed and pt is medically stable for transfer.
[facility] Report: [phone]
[facility]
--- NOTE | 2024-11-24 13:49 | W.DS.TRANS ---
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
-
Discharge Instructions:
Discharge Diagnosis/Procedures Metabolic encephalopathy.
Failure to thrive is reported poor oral intake.
Reported diarrhea with history of IBS�diarrheal
type.
ERNST
Hypokalemia
Hyperbilirubinemia
Focal epilepsy.
Chronic macrocytic anemia.
Chronic lower extremity edema.
History of TIA
Protein calorie malnutrition with BMI of 16.9
Diet Regular
Instructions:
Stand-Alone Forms:
Changes to Home Medications: Yes
Discharge Medications:
DC Medications w/original date entered in [facility]
atorvastatin 20 mg tablet 20 mg PO HS High Cholesterol 04/03/23
aspirin 81 mg tablet,delayed release 81 mg PO DAILY Blood Clot Prevention/Tx 12/29/23
cholecalciferol (vitamin D3) 25 mcg (1,000 unit) tablet 50 mcg PO DAILY Supplement 12/29/23
famotidine 20 mg tablet (Pepcid AC) 20 mg PO BIDPRN PRN gerd 12/29/23
lamotrigine 150 mg tablet 150 mg PO BID Seizures 02/06/24
carboxymethylcellulose 0.5 %-glycerin 0.9 % eye drops (Refresh Optive) 1 drp BOTH EYES BIDPRN PRN dryness 11/23/24
conjugated estrogens 0.625 mg/gram vaginal cream (Premarin) 1 applic vaginal MOWEFR PRN hormones 11/23/24
ferrous sulfate 325 mg (65 mg iron) tablet 325 mg PO Q48H 11/23/24
levetiracetam 250 mg tablet (Keppra) 500 mg PO BID 11/23/24
melatonin 3 mg tablet 3 mg PO HSPRN PRN sleep 11/23/24
Home Medication Changes
Lasix stopped along with KCL supplelement
Pending Results: No
[2024-11-24 14:39] VITALS: BMI 17.3
--- NOTE | 2024-11-24 14:41 | CM ---
Addendum entered by Clementine Bruno 11/24/24 15:51:
Ambulance transport arranged for 6PM. Pt's daughter notified of same. IMM reviewed verbally with daughter; she is agreeable to discharge/transfer to [facility] today.
Original Note:
Pt cleared for discharge to SNF. [facility] is requested facility; bed available for transfer today. CM spoke with pt's daughter about transfer to [facility]; she is agreeable to transfer. IMM reviewed verbally with pt's daughter who declined
having an email sent with the form. She is agreeable to discharge to [facility].
[facility] contacted pt's insurance for SNF authorization; I spoke with Yaima who approved SNF for 7 days; auth #[id number] for DOS
11/24-11/30 with next review date 11/30/2024; call [phone] with updates.
Ambulance authorization provided by Yaima for Acute Care: [id number]
Plan: Transfer to [facility] for SNF rehab
[facility] Report: [phone]
[facility]
[2024-11-24 15:45] VITALS: BP 140/51
[2024-11-24 17:35] LABS: COVID-19 Antigen Negative (Negative)
== END 2024-11-24 19:13 | DRG 682 ==
LOC: 3 WEST ACU 04:34
PROVIDERS: ADMITTING PHYSICIAN Hospitalist; ATTENDING PHYSICIAN Internal Medicine; EMERGENCY PHYSICIAN Emergency Medicine; FAMILY PHYSICIAN Family Medicine
DX: N17.9 Acute kidney failure, unspecified (principal); G93.41 Metabolic encephalopathy; E46 Unspecified protein-calorie malnutrition; Z68.1 Body mass index [BMI] 19.9 or less, adult; R17 Unspecified jaundice; G40.109 Localization-related (focal) (partial) symptomatic epilepsy and epileptic syndromes with simple partial seizures, not intractable, without status epilepticus; E86.1 Hypovolemia; R60.0 Localized edema; D53.9 Nutritional anemia, unspecified; R79.89 Other specified abnormal findings of blood chemistry; R62.7 Adult failure to thrive; Z66 Do not resuscitate; E87.6 Hypokalemia; K58.0 Irritable bowel syndrome with diarrhea; Z86.73 Personal history of transient ischemic attack (TIA), and cerebral infarction without residual deficits; Z11.52 Encounter for screening for COVID-19; Z79.899 Other long term (current) drug therapy
CPT/HCPCS: 70450; 76700; 80053; 81003; 81015; 82248; 83690; 83735; 84443; 85025; 85027; 87811; 97167; 97530

== ENCOUNTER 2024-11-26 04:22 | Inpatient (IN) | payer OTHER, SELFPAY ==
[2024-11-26] VITALS (22 sets, daily range): BP systolic 88–144; BP diastolic 40–83; BMI 18.2
[2024-11-26 01:06] LABS: Glucose - Point of Care 279 mg/dl (70-99)
--- NOTE | 2024-11-26 01:21 | ED.GENMED ---
History of Present Illness
General
Chief Complaint: Blood Sugar Problem
Source: ambulance crew and half-way
Exam Limitations: clinical condition and altered mental status
Time Seen by Provider: 11/26/24 01:00
Nursing documentation reviewed up to this point in time: agreed with
History of Present Illness
History of Present Illness:
89-year-old female from [facility] presents with altered mental status. Staff noticed that she was 'not acting correctly'. EMS was called. Upon arrival blood sugar was in the 40s. Patient had a systolic blood pressure of 60. Patient was
recently discharged from [facility] 2 days prior. Patient's discharge diagnoses included metabolic encephalopathy, failure to thrive with poor oral intake, acute kidney injury resolved, diarrhea, hypokalemia, transient hyperbilirubinemia.
Patient does have past medical history of a TIA.
Past History
Past History
ED Past Medical History: GERD, Seizures (On Kepra) and Other (Scoliosis)
ED Past Surgical History: Appendectomy, Gynecological (Hysterectomy) and Orthopedic
Social History
Tobacco: Non-smoker
Alcohol: None
Drug: None
Living: half-way
Phy Exam
General Physical Exam
General Presentation: no apparent distress
General age: appears stated age
General Skin: warm, dry and pale
General Habitus: normal
General Mental: alert
General Hydration: appears well hydrated
ENT Exam
ENT Exam: EOMI, pharynx normal, neck supple and normocephalic
Eye Exam
Eye Exam: PERRL, cornea clear and conjunctiva normal
Cardiovascular Exam
Cardiovascular Exam: regular rate/rhythm
Pulmonary Exam
Pulmonary Exam: lungs clear, no respiratory distress, no rales, no crackles, no rhonchi, no stridor, no wheezing and no cough
Gastrointestinal Exam
Gastrointestinal Exam: normal bowel sounds, non tender, soft, no organomegaly, no pulsatile mass and non distended
Neurological Exam
Neurological Exam: alert, oriented x3, no motor deficits and speech normal
Musculoskeletal Exam
Musculoskeletal Exam: full ROM, no edema and neuro vasc intact
Skin Exam
Skin Exam: pallor
Psychiatric Exam
Psychiatric Exam: labile
Course
Orders/Labs/Results
Orders:
Orders
11/26/24 01:09
Electrocardiogram (*1) Urgent
Reason for Study: Fatigue / Weakness
EKG- Treatment ONCE
11/26/24 01:15
Complete Blood Count/With Diff Urgent
Comprehensive Metabolic Panel Urgent
Lipase Urgent
11/26/24 01:42
CT Head W/o Iv Contrast Urgent
Comment:
Reason For Exam: AMS
11/26/24 02:22
Blood Bank Products [* Blood Bank Products] Urgent
Blood Bank Products: *Packed RBC Leuko(PRBC's)
Quantity: 2
Transfuse Today: Yes
Reason: Anemia
11/26/24 02:58
Type And Crossmatch [Type+Screen] Urgent
11/26/24 03:08
0.9% Sodium Chloride 250 ml [Nss] 250 ml IV BOLUS
11/26/24 03:21
Admit/Transfer Patient As Directed
Co-Sign Provider:
Level of Care: Inpatient admission
Assign to:: Telemetry
Physician / Group: Sharlene
Diagnosis: hypoglycemic episode
Reason for Telemetry: Other
Other Reason for Telemetry: possible GI bleed
Date to Stop Telemetry: 11/28/24
Time to Stop Telemetry: 11:00
Reason for Hospitalization: hypoglycemia, symptomatic anemia
Expected length of stay greater than two midnights?: Yes
ELOS- Estimated Length of Stay in days: 2
I certify the patient meets the requirements for IP care: Yes
PRN Pain Medication Management As Directed
May give lesser potent ordered pain med per pt: Yes
preference::
Protocol:: Medication orders for pain may be administered in a
manner that supports deferring to patient preference
when the pt is:
- Requesting an ordered lesser potent pain medication.
Least to most potent pain medications are defined
as: acetaminophen < NSAID < tramadol < opioids
(morphine, oxycodone, hydromorphone).
- Requesting a lesser dose of the same medication IF
ORDERED.
- Requesting a less intrusive route of administration
if both routes are prescribed by the provider (PO <
IV).
11/26/24 03:24
Code Status As Directed
Resuscitation Status: Do not resuscitate
Reached after discussion with pt or family/Healthcare POA: Yes
11/26/24 03:25
DNR Bracelet Application ONCE
11/26/24 04:00
Flush (0.9% Sodium Chloride) [Flush (Nss)] See Dose Instructions IV PER PROTOCOL
11/26/24 04:15
Lactated Ringers [Lr] 1,000 ml IV 75 mls/hr
11/28/24 11:00
DC Protocol for Telemetry ONCE
Abnormal Lab Results
11/26/24 11/26/24 11/26/24
01:04 01:15 02:58
RBC 1.83 L 10^6/uL
(4.20-5.40)
Hgb 6.6 L* g/dL
(12.0-16.0)
Hct 19.3 L* %
(37.0-47.0)
MCV 105.5 H fL
(81.0-99.0)
MCH 36.1 H pg
(27.0-31.0)
RDW 16.9 H %
(11.5-14.5)
Absolute Lymphs (auto) 0.8 L 10^3/uL
(1.2-3.4)
Neutrophils % 80.0 H %
(42.2-75.2)
Lymphocytes % 10.4 L %
(20.5-51.1)
Potassium 3.2 L mmol/L
(3.5-5.1)
Glucose 220 H mg/dl
(70-99)
Total Bilirubin 1.5 H mg/dl
(0.2-1.3)
AST 51 H U/L
(1436)
Total Protein 4.2 L g/dl
(6.3-8.2)
Albumin 2.7 L g/dl
(3.5-5.0)
POC Glucose 279 H mg/dl
(70-99)
Crossmatch IS Only See Detail
11/26/24
03:11
RBC
Hgb
Hct
MCV
MCH
RDW
Absolute Lymphs (auto)
Neutrophils %
Lymphocytes %
Potassium
Glucose
Total Bilirubin
AST
Total Protein
Albumin
POC Glucose 139 H mg/dl
(70-99)
Crossmatch IS Only
11/26/24 01:15
11/26/24 01:15
Vital Signs
Initial and Last Documented VS:
Initial Vital Signs
Pulse Resp
98 14
11/26/24 01:06 11/26/24 01:06
Last Documented Vital Signs
Temp Pulse Resp BP Pulse Ox
98.1 F 77 15 88/40 94
11/26/24 04:36 11/26/24 04:36 11/26/24 04:36 11/26/24 04:36 11/26/24 04:36
*Pulse Oximetry
Patient hypoxic: no
*Critical Care Note
Total Time (30-74mins, 75-104mins- exclusive of procedures): 40 (Critical care statement: A total of 40 minutes of critical care time was provided for this patient. This time is separate from time utilized to perform the aforementioned documented
procedures. Aggregate critical care time includes only time during which I was engaged in work directl)
Data Reviewed
Review of Other/Old Records Reveals: Labs, Records and Radiology Studies
Update Note
Update Note:
Spoke with daughter Yanci to inform her about the anemia.
Patient has been working with Dr. Hutchinson for her chronic low hemoglobin.
When discharged from the hospital, was advised to follow-up with a examination grader.
Last evening when patient was discharged back to [facility] from the hospital, there was blood on her gown. Daughter states that they could not determine the source of the blood. He was in the midportion of her gown. She did not see any vaginal
bleeding or discharge.
Patient typically high functioning according to daughter. As of late, she has been more confused.
Daughter states that patient is a DNR. Does not want CPR or artificial respiration.
Hemoglobin dropped, blood consent obtained verbally from daughter over the phone
Blood ordered
ED Attending Note
-
Portions of this chart may have been created with voice recognition software.� Occasional wrong word or��sound alike� substitutions may have occurred due to the inherent limitations of voice recognition software.
Discharge Plan
Departure
Patient Disposition: Admit
Date of Disposition: 11/26/24
Time of Disposition: 02:27
Presentation/result/management discussed w/ accepting MD/DO: Hospitalist
Discharge Problem:
Hypoglycemia
Interventions
Interventions:
*Risk Screen - Suicide Last Done: 11/26/24 01:01
*General Assessment Last Done: 11/26/24 01:16
*Neglect/Abuse Screening Last Done: 11/26/24 01:01
*ED- Fall Risk Assessment Last Done: 11/26/24 01:01
*ED COVID-19 Vaccine History Last Done: 11/26/24 01:01
ED- Neurological Assessment Last Done: 11/26/24 01:16
[2024-11-26 01:57] LABS: ALT (SGPT) 29 U/L (0-35); AST (SGOT) 51 U/L (14-36); Albumin 2.7 g/dl (3.5-5.0); Alkaline Phosphatase 62 U/L (38-126); Blood Urea Nitrogen 10 mg/dl (7-17); Calcium 8.4 mg/dl (8.4-10.2); Carbon Dioxide 28 mmol/L (22-30); Chloride 107 mmol/L (98-107); Glucose 220 mg/dl (70-99); Lipase 137 U/L (23-300); Potassium 3.2 mmol/L (3.5-5.1); Sodium 137 mmol/L (135-145); Total Bilirubin 1.5 mg/dl (0.2-1.3); Total Protein 4.2 g/dl (6.3-8.2); eGFR > 60.00
[2024-11-26 02:02] LABS: % Basophils 0.6 % (0-2); % Eosinophils 1.1 % (0-6); % Immature Granulocytes 0.5 % (0-0.5); % Lymphocytes 10.4 % (20.5-51.1); % Monocytes 7.4 % (1.7-9.3); Absolute Basophils 0.1 10^3/uL (0-0.2); Absolute Eosinophils 0.1 10^3/uL (0-0.7); Absolute Lymphocytes 0.8 10^3/uL (1.2-3.4); Absolute Monocytes 0.6 10^3/uL (0.1-0.6); Absolute Neutrophils 6.4 10^3/uL (1.4-6.5); Hematocrit 19.3 % (37.0-47.0); Hemoglobin 6.6 g/dL (12.0-16.0); Mean Corp Hgb Conc. 34.2 g/dL (33.0-37.0); Mean Corpuscular Hgb 36.1 pg (27.0-31.0); Mean Corpuscular Volume 105.5 fL (81.0-99.0); Mean Platelet Volume 10.3 fL (7.4-10.4); Nucleated Red Blood Cells % 0 %; Platelet Count 180 10^3/uL (130-400); Red Blood Cell Count 1.83 10^6/uL (4.20-5.40); Red Cell Dist. Width 16.9 % (11.5-14.5)
--- NOTE | 2024-11-26 02:41 | HPS.HSE ---
Family Physician
-
Family Physician: Carmine Giraldo MD
Chief Complaint
-
Hypoglycemic
History of Present Illness
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
hypoglycemic to 40 by EMS.
According to nursing staff at the [facility] term [facility] patient's was less interactive and was not acting correctly. When they checked her blood pressure was 60 systolic. Her blood glucose was 40. EMS was called. EMS found her obtunded. She
was given D5 normal saline by EMS. On arrival in the emergency department blood sugar was greater than 100. Patient unable to provide much history. Speech slightly slurred. Denies any abdominal pain, nausea, vomiting, headache. Says she feels
dehydrated and doesn't have any appetite. She remembers eating something yesterday but unable to tell me what. Staff reported some shaking twitching.
In the ED temp was 97.9, blood pressure was 115/49 with a MAP of 63 she was with a pulse rate of 76. CBC notable for hemoglobin of 6.6 which is down from 7.8 prior to her last admission 2 days ago. Electrolytes notable for a potassium of 3.2. BUN
and creatinine remained stable. Blood glucose was 220.
Medical History
Past Medical History
Past Medical History: Reports Other
Additional Past Medical History:
Seizure Disorder / Focal Epilepsy
IBS-D
GERD
Chronic Anemia
TIA
Past Surgical History: Reports Other
Additional Past Surgical History:
HAILY / BSO
Cholecystectomy
Appendectomy
Right TSA
Right Hip ORIF
Social History
Tobacco: Non-smoker
Alcohol: None
Drug: None
Family History
Family History: Not pertinent
Allergies / Home Medications
Allergies reflects when Allergies were last updated in [facility].
Home Medications with original date entered in [facility]
Allergy/Medication List:
Allergies
Allergy/AdvReac Type Severity Reaction Status Date / Time
bacitracin Allergy Unknown Verified 01/11/24 06:21
erythromycin base Allergy Unknown Verified 01/11/24 06:21
Gramicidins Allergy Unknown Verified 01/11/24 06:21
iodine Allergy Unknown Verified 01/11/24 06:21
neomycin Allergy Unknown Verified 01/11/24 06:21
Penicillins Allergy patient Verified 01/11/24 06:21
states she
gets mouth
swelling
with
penicillin
polymyxin B Allergy Unknown Verified 01/11/24 06:21
povidone-iodine Allergy Unknown Verified 01/11/24 06:21
soap Allergy Unknown Verified 01/11/24 06:21
Sulfa (Sulfonamide Allergy Unknown Verified 01/11/24 06:21
Antibiotics)
sulfamethoxazole Allergy Unknown Verified 01/11/24 06:21
tetracycline Allergy Unknown Verified 01/11/24 06:21
trimethoprim Allergy Unknown Verified 01/11/24 06:21
Home Medications
atorvastatin 20 mg tablet 20 mg PO HS High Cholesterol 04/03/23
aspirin 81 mg tablet,delayed release 81 mg PO DAILY Blood Clot Prevention/Tx 12/29/23
cholecalciferol (vitamin D3) 25 mcg (1,000 unit) tablet 50 mcg PO DAILY Supplement 12/29/23
famotidine 20 mg tablet (Pepcid AC) 20 mg PO BID 12/29/23
furosemide 20 mg tablet 40 mg PO DAILY Fluid Retention/Swelling 12/29/23
levetiracetam 500 mg tablet 500 mg PO HS #30 tabs 01/02/24
potassium chloride 20 mEq tablet,extended release 20 meq PO DAILY Supplement 01/11/24
lamotrigine 150 mg tablet 150 mg PO BID Seizures 02/06/24
ferrous sulfate 325 mg (65 mg iron) tablet 325 mg PO DAILY 11/23/24
Review of Systems
-
Unable to obtain full review of systems at this time due to: Dementia
Physical Exam
Vital Signs
Vital Signs
Temp Pulse Resp BP Pulse Ox
97.9 F 76 14 115/49 97
11/26/24 01:09 11/26/24 01:45 11/26/24 01:45 11/26/24 02:00 11/26/24 02:00
Physical Exam
General: Other (Frail, elderly female in no acute distress. Somewhat rambling speech; however, her details are appropriate / correct.)
HEENT: NormoCephalic, Anicteric, Atraumatic, Neck Nontender and Other (Dry MM. )
Respiratory: Clear; No Wheezes, Rales or Rhonchi
Cardiac: S1/S2 and Regular Rhythm; No Murmur
GI: Soft, Non Tender, Non Distended and Normal Bowel Sounds
Rectal: Brown and Hem Negative
Musculoskeletal: No Clubbing, No Cyanosis and No Edema
Skin: Warm
Neuro: AO x 3 and Nonfocal/grossly intact
Psych: Calm
Laboratory Results
-
11/26/24 01:15
11/26/24 01:15
Laboratory Results
Total Bilirubin 1.5 mg/dl (0.2-1.3) H 11/26/24 01:15
AST 51 U/L (14-36) H 11/26/24 01:15
ALT 29 U/L (0-35) 11/26/24 01:15
Alkaline Phosphatase 62 U/L (38-126) 11/26/24 01:15
Lipase 137 U/L (23-300) 11/26/24 01:15
Data Reviewed
-
CT Scan: Report Reviewed by me
Lab Data: Labs Reviewed by me
Old Records: Reviewed
Impression/Plan
-
IMPRESSION:
89-year-old female was recently discharged from hospital for metabolic encephalopathy thought secondary to dehydration and medication use, found to have hypovolemia and ERNST at that time. Lasix discontinued. IV fluids given with with correction of
her renal dysfunction. She also has history of diarrhea with IBS palpable bowel movements and poor p.o. intake while hospitalized. Overall deconditioning noted. Diet was advanced with good tolerance prior to discharge to long term facility.
She has no history of diabetes and is not on any antidiabetic agents and she was found to have chronic anemia with hemoglobin of around 7.8 and known to have macrocytosis with sufficient iron and B12 stores. She is now here with episode of
hypoglycemia and altered mental status and was found to have a hemoglobin of 6.6 which is down from the 7.8 low as she had during the last admission. She is otherwise hemodynamically stable and shows no signs of bleeding or any signs of
overwhelming infection.
PLAN:
Hypoglycemia - No h/o DM II, unlikely received exogenous insulin or JERZY. Has maintained Normal glucose since 1 L dextrose NS given by EMS. Likely stems from malnutrition. Albumin significantly declined.
- admit to telemetry
- blood glucose q6h for now
- hypoglycemia protocol
- diet was advanced to regular, so will continue as tolerated
- no obvious infectious signs, will get u/a clean catch
Anemia - Acute on chronic. Known macrocytosis with bl Hgb 7.8 - 9, now 6.6. Heme negative brown stools. No thinners. Had good iron b12 stores last year and recent TSH normal.
- type and screen
- consent obtain from daughter
- transfusing 2 units
- trend H&H
- guaiac stools, no current evidence of GI bleed.
- check retic, LDH, haptoglobin and folate, b12
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
Seizure d/o
- continue lamotrigine and keppra
FTT
- gently hydration for now
- assess diet, calories in am
DVT PPX - SCDs for now
Code status - DNR
[2024-11-26 03:12] LABS: Glucose - Point of Care 139 mg/dl (70-99)
[2024-11-26] MEDS: NSS 250 IV (03:17)
[2024-11-26] MEDS: FLUSH (NSS) 1 FLUSH IV ×3 (04:06→20:47)
[2024-11-26] MEDS: LR 1000 IV ×2 (04:06→20:43)
[2024-11-26 08:02] LABS: Glucose - Point of Care 97 mg/dl (70-99)
--- NOTE | 2024-11-26 09:07 | W.PN.HOSP.TC ---
Today's Communication/Plan
-
see bold
Assessment / Plan
Assessment / Plan
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
40 by EMS.
According to nursing staff at the [facility] patient's was less interactive and was not acting correctly. When they checked her blood pressure was 60 systolic. Her blood glucose was 40. EMS was called. EMS found her obtunded. She
was given D5 normal saline by EMS. On arrival in the emergency department blood sugar was greater than 100. Patient unable to provide much history. Speech slightly slurred. Denies any abdominal pain, nausea, vomiting, headache. Says she feels
dehydrated and doesn't have any appetite. She remembers eating something yesterday but unable to tell me what. Staff reported some shaking twitching.
#Megaloblastic anemia
Hemoglobin 6.6 upon admission, patient receiving 2 units of packed red blood cells today
B12/folic acid levels are normal, iron stores are adequate
Check methylmalonic acid, consult hematology
Continue previous ferrous sulfate supplements
Trend hemoglobin
#Generalized weakness
Patient from home, was discharged to short-term rehab on 11/24, and sent back to the ER on 11/25
Consult PT/OT
#Hypoglycemic encephalopathy
Resolved
Continue Accu-Cheks every 6 hours
#Hypotension
Resolved with IV fluids, monitor
#Intermittent confusion
#Resting tremor with cogwheel rigidity
Concerning for Parkinson's disease, consult neurology
#Hypokalemia
Replete, recheck in a.m., check magnesium
# History of seizure disorder
Continue Keppra, Lamictal
#Hyperlipidemia
Continue statin
DVT prophylaxis�Lovenox 30 mg subcu daily
DNR
Updated daughter on phone 11/26
Total time spent to see the patient on the floor, examine the patient, review data and lab results, discuss treatment plan with patient, nursing staff around 50 minutes.
Physical Exam
General: No acute distress
HEENT: Normocephalic, Atraumatic, EOMI, MMM
Respiratory: Clear to Auscultation bilaterally
Cardiac: Normal S1/S2, Regular Rate and Rhythm
GI: Soft, Nontender, Nondistended, Normal Bowel Sounds
Extremities: No Clubbing, Cyanosis, or Edema
Neuro: Slow to respond, oriented to person, place, month/year
Resting tremor with cogwheel rigidity noted
Psych: Calm, Cooperative
Derm: No Visible lesions
Anticipated Discharge: 24 - 48 hours
Subjective/Interval History
-
Date of Service: November 26, 2024
Patient reports feeling better. She denies pain, denies shortness of breath. No coughing. No fever, no vomiting.
Objective Data
-
Labs:
Laboratory Results
11/26/24
01:15
WBC 8.0
Hgb 6.6 L*
Hct 19.3 L*
Plt Count 180
Sodium 137
Potassium 3.2 L
Chloride 107
Carbon Dioxide 28
BUN 10
Creatinine 0.7
Glucose 220 H
Calcium 8.4
Total Bilirubin 1.5 H
AST 51 H
ALT 29
Alkaline Phosphatase 62
Vital Signs:
Vital Signs
Temp Pulse Resp BP Pulse Ox
97.6 F 78 18 138/58 96
11/26/24 06:45 11/26/24 06:45 11/26/24 06:45 11/26/24 06:45 11/26/24 06:42
I&O
11/25/24 11/26/24 11/27/24
06:59 06:59 06:59
Intake Total 0 / 0
Balance 0 / 0
[2024-11-26] MEDS: LAMICTAL 150 MG PO ×2 (09:49→20:39)
[2024-11-26] MEDS: KEPPRA 500 MG PO ×2 (09:50→20:39)
--- NOTE | 2024-11-26 10:12 | CM ---
Addendum entered by Melanie Tan 11/26/24 10:17:
Prior to last hospital admission, patient was residing alone in an in-law suite attached to daughter's home
Pt was independent with ambulation, dressing and toileting. Patient had private duty RN MATERNAL CHILD 2 hours 2x weekly
Original Note:
Initial assessment completed with patient's daughter, Yanci, #[phone]
Patient was discharged from 11/24 to [facility]; sent to ED 11/26 via EMS; when EMS arrived, patient had low blood sugar and BP.
HGB 6.6; Blood ordered for today.
Per Ellie @ [facility], the bed is not being held. CM spoke with daughter, explained that returning to [facility] is pending bed availability unless she pays to hold bed. Daughter plans to call Facility
[2024-11-26] MEDS: KCL 40 MEQ PO (11:39)
--- NOTE | 2024-11-26 11:57 | CON.NEURO ---
Neuro Assessment/Plan
Assessment
EEG >1 hr 04/2024 showed nonconvulsive seizures and interictal spike and wave discharges
Head CT imgs and rept rev'd, agree mild atrophy and microvascular changes
Parkinson's disease, will consider starting Sinemet 25/100 TID before meals if she's more awake tomorrow
Dementia, by the description of baseline independent ADLs, does own laundry, the dementia would be mild, or perhaps early moderate; don't believe that this is causing her poor PO intake
Epilepsy continue Keppra 500 BID, Lamictal 150 BID
Consultation
Order
Date of Consultation: 11/26/24
Requesting Provider: Yao Schuster
Reason for Consult: ?parkinsons
Subjective/Objective
Subjective Data
Date of Service: November 26, 2024
from h&p:
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
to 40 by EMS.
According to nursing staff at the group home facility patient's was less interactive and was not acting correctly. When they checked her blood pressure was 60 systolic. Her blood glucose was 40. EMS was called. EMS found her obtunded. She
was given D5 normal saline by EMS. On arrival in the emergency department blood sugar was greater than 100. Patient unable to provide much history. Speech slightly slurred. Denies any abdominal pain, nausea, vomiting, headache. Says she feels
dehydrated and doesn't have any appetite. She remembers eating something yesterday but unable to tell me what. Staff reported some shaking twitching.
In the ED temp was 97.9, blood pressure was 115/49 with a MAP of 63 she was with a pulse rate of 76. CBC notable for hemoglobin of 6.6 which is down from 7.8 prior to her last admission 2 days ago. Electrolytes notable for a potassium of 3.2. BUN
and creatinine remained stable. Blood glucose was 220.
this morning was noted to have resting tremor, cogwheel rigidity, raising concerns for Parkinson's. spoke with dtr - baseline AOx3, independent, does her own laundry. longstanding poor po intake, on ensure, 2 weeks of diarrhea
Objective Data
Vital Signs
Temp Pulse Resp BP Pulse Ox
36.2 C 77 18 144/56 99
11/26/24 11:24 11/26/24 11:24 11/26/24 11:24 11/26/24 11:24 11/26/24 11:24
Lab Results
11/26/24 01:15
11/26/24 01:15
Sodium 137 mmol/L (135-145) 11/26/24 01:15
Potassium 3.2 mmol/L (3.5-5.1) L 11/26/24 01:15
BUN 10 mg/dl (7-17) 11/26/24 01:15
Glucose 220 mg/dl (70-99) H 11/26/24 01:15
Calcium 8.4 mg/dl (8.4-10.2) 11/26/24 01:15
Patient Allergies
bacitracin Allergy (Verified 11/26/24 01:08)
Unknown
erythromycin base Allergy (Verified 11/26/24 01:08)
Unknown
Gramicidins Allergy (Verified 11/26/24 01:08)
Unknown
iodine Allergy (Verified 11/26/24 01:08)
Unknown
neomycin Allergy (Verified 11/26/24 01:08)
Unknown
Penicillins Allergy (Verified 11/26/24 01:08)
patient states she gets mouth swelling with penicillin
polymyxin B Allergy (Verified 11/26/24 01:08)
Unknown
povidone-iodine Allergy (Verified 11/26/24 01:08)
Unknown
soap Allergy (Verified 11/26/24 01:08)
Unknown
Sulfa (Sulfonamide Antibiotics) Allergy (Verified 11/26/24 01:08)
Unknown
sulfamethoxazole Allergy (Verified 11/26/24 01:08)
Unknown
tetracycline Allergy (Verified 11/26/24 01:08)
Unknown
trimethoprim Allergy (Verified 11/26/24 01:08)
Unknown
Physical Exam
-
elderly, frail
lethargic, briefly opens eyes to voice, not answering appropriately, following simple commands
face symmetric, masked fascies,
diffuse muscle atrophy, bilateral upper extremities 4/5, lower ext some antigravity
+cogwheel rigidity, bradykinesia with rapid alternating movements.
Medications
-
Active Medications
Generic Name Dose Route Start Last Admin
Trade Name Freq PRN Reason Stop Dose Admin
Acetaminophen 650 mg 11/26/24 06:02
Acetaminophen 325 Mg Tablet PO 12/24/24 06:01
Q4HPRN PRN
mild pain/GARCIA/temp> 100.4F
Atorvastatin Calcium 20 mg 11/26/24 22:00
Atorvastatin (Lipitor) 20 Mg Tablet PO 12/24/24 21:59
HS ERASTO
Bisacodyl 10 mg 11/26/24 06:02
Bisacodyl 10 Mg Rectal Suppository RECTAL 12/24/24 06:01
[id number] PRN
constipation
Carboxymethylcellulose Sodium 1 drops 11/26/24 06:02
Carboxymethylcellulose Ophth Gel (Celluvisc) Droperette BOTH EYES
BIDPRN PRN
dry eyes
Ferrous Sulfate 325 mg 11/28/24 08:00
Ferrous Sulfate 325 Mg Tablet PO 12/26/24 07:59
Q48H ERASTO
Lactated Ringer's 1,000 mls @ 75 mls/hr 11/26/24 04:15 11/26/24 04:06
Lr IV 1,000 mls
[id number] ERASTO Administration
Lamotrigine 150 mg 11/26/24 08:00 11/26/24 09:49
Lamotrigine 100 Mg Tablet PO 12/24/24 07:59 150 mg
BID ERASTO Administration
Levetiracetam 500 mg 11/26/24 08:00 11/26/24 09:50
Levetiracetam 500 Mg Regular Release Tablet PO 12/24/24 07:59 500 mg
BID ERASTO Administration
Polyethylene Glycol 17 grams 11/26/24 06:02
Polyethylene Glycol Powder 17 Grams Packet PO 12/24/24 06:01
DAILYPRN PRN
constipation
Senna/Docusate Sodium 1 tablet 11/26/24 06:02
Docusate W/Senna (Sera-Colace) Tablet PO 12/24/24 06:01
BIDPRN PRN
constipation
Sodium Chloride 0 flush 11/26/24 04:00 11/26/24 09:50
Sodium Chloride 0.9% (Flush) Syringe IV 12/24/24 03:59 1 flush
PER PROTOCOL ERASTO Administration
Home Medications
�Medication �Instructions �Recorded
atorvastatin 20 mg tablet 20 mg PO HS High Cholesterol 04/03/23
aspirin 81 mg tablet,delayed 81 mg PO DAILY Blood Clot 12/29/23
release Prevention/Tx
cholecalciferol (vitamin D3) 25 50 mcg PO DAILY Supplement 12/29/23
mcg (1,000 unit) tablet
famotidine 20 mg tablet (Pepcid AC) 20 mg PO BIDPRN PRN gerd 12/29/23
lamotrigine 150 mg tablet 150 mg PO BID Seizures 02/06/24
carboxymethylcellulose 0.5 1 drp BOTH EYES BIDPRN PRN dry eyes 11/23/24
%-glycerin 0.9 % eye drops
(Refresh Optive)
conjugated estrogens 0.625 mg/gram 1 applic vaginal MOWEFR PRN 11/23/24
vaginal cream (Premarin) hormones
ferrous sulfate 325 mg (65 mg 325 mg PO Q48H Supplement 11/23/24
iron) tablet
levetiracetam 250 mg tablet 500 mg PO BID Seizures 11/23/24
(Keppra)
melatonin 3 mg tablet 3 mg PO HSPRN PRN sleep 11/23/24
[2024-11-26 11:59] LABS: Glucose - Point of Care 144 mg/dl (70-99)
[2024-11-26 12:04] LABS: Reticulocyte Count 1.7 % (0.4-2.8)
[2024-11-26 12:06] LABS: Iron 116 ug/dl (37-170)
[2024-11-26 12:15] LABS: Percent Saturation 76 % (20-50); Total Iron Binding Capacity 152 ug/dl (265-497)
[2024-11-26 13:55] LABS: Folate 11.3 ng/ml (2.76-20); Vitamin B12 > 1000 pg/ml (239-931)
--- NOTE | 2024-11-26 14:39 | PTCARENOTE ---
Pt completed entire unit of PRBCs at 1432, no adverse reaction noted, will monitor.
[2024-11-26 15:05] LABS: Magnesium 1.5 mg/dl (1.6-2.3); Phosphorus 2.3 mg/dl (2.5-4.5)
[2024-11-26] MEDS: LOVENOX 30 MG SC (17:23)
[2024-11-26 18:27] LABS: Glucose - Point of Care 124 mg/dl (70-99)
[2024-11-26] MEDS: LIPITOR 20 MG PO (20:43)
[2024-11-27] VITALS (7 sets, daily range): BP systolic 134–153; BP diastolic 55–66
[2024-11-27 00:07] LABS: Glucose - Point of Care 90 mg/dl (70-99)
[2024-11-27 05:57] LABS: Glucose - Point of Care 84 mg/dl (70-99)
[2024-11-27 06:31] LABS: Blood Urea Nitrogen 10 mg/dl (7-17); Calcium 8.5 mg/dl (8.4-10.2); Carbon Dioxide 28 mmol/L (22-30); Chloride 111 mmol/L (98-107); Estimated Creatinine Clearance 44 ml/min; Glucose 85 mg/dl (70-99); Potassium 3.5 mmol/L (3.5-5.1); Sodium 139 mmol/L (135-145); eGFR > 60.00
[2024-11-27 06:36] LABS: Hematocrit 28.7 % (37.0-47.0); Mean Corp Hgb Conc. 34.8 g/dL (33.0-37.0); Mean Corpuscular Hgb 33.9 pg (27.0-31.0); Mean Corpuscular Volume 97.3 fL (81.0-99.0); Mean Platelet Volume 10.1 fL (7.4-10.4); Platelet Count 167 10^3/uL (130-400); Red Blood Cell Count 2.95 10^6/uL (4.20-5.40); Red Cell Dist. Width 20.3 % (11.5-14.5); Reticulocyte Count 1.5 % (0.4-2.8)
[2024-11-27 07:02] LABS: TSH Reflex To Free T4 1.94 uIU/ml (0.47-4.68)
--- NOTE | 2024-11-27 08:15 | W.PN.HOSP.TC ---
Addendum entered and electronically signed by Yao Schuster MD 11/27/24 13:41:
Neurology recommends insertion of Dobbhoff tube so patient can receive her Lamictal.
Will ask GI to insert.
Addendum entered and electronically signed by Yao Schuster MD 11/27/24 13:27:
Correction, patient was not started on Sinemet 11/26/2024 as patient's daughter declined starting Sinemet due to concerns about her heart and dehydration.
Discussed with neurology, who recommends head CT and chest x-ray today �which have been ordered.
Updated daughter 11/27/2024.
Original Note:
Today's Communication/Plan
-
see bold
Assessment / Plan
Assessment / Plan
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
40 by EMS.
According to [facility] staff at the [facility] facility patient's was less interactive and was not acting correctly. When they checked her blood pressure was 60 systolic. Her blood glucose was 40. EMS was called. EMS found her obtunded. She
was given D5 normal saline by EMS. On arrival in the emergency department blood sugar was greater than 100. Patient unable to provide much history. Speech slightly slurred. Denies any abdominal pain, nausea, vomiting, headache. Says she feels
dehydrated and doesn't have any appetite. She remembers eating something yesterday but unable to tell me what. Staff reported some shaking twitching.
#Megaloblastic anemia
Hemoglobin 10.0 today, improved from 6.6 upon admission status post 2 units packed red blood cells
B12/folic acid levels are normal, iron stores are adequate
Appreciate hematology input, check copper level, check ceruloplasmin, as copper deficiency can also cause megaloblastic anemia
Hematology recommends stopping ferrous sulfate as there is no iron deficiency
Monitor hemoglobin, follow-up methylmalonic acid -send out test
#Generalized weakness
Patient from home, was discharged to short-term rehab on 11/24, and sent back to the ER on 11/25
PT/OT
#Hypoglycemic encephalopathy
Resolved
Continue Accu-Cheks every 6 hours
#Hypotension
Resolved with IV fluids, monitor
#Parkinson's disease
#Intermittent confusion
#Resting tremor with cogwheel rigidity
Appreciate neurology input, started on Sinemet 11/26
11/27 patient more lethargic�asked neurology to follow-up
#Hypokalemia
Repleted and resolved
#Hypomagnesemia
Replete by IV, recheck a.m. labs
# History of seizure disorder
Keppra changed to IV due to lethargy and patient not taking p.o. 11/27
Continue p.o. Lamictal as able
#Hyperlipidemia
Continue statin
DVT prophylaxis�Lovenox 30 mg subcu daily
DNR
Updated daughter on phone 11/26
Called daughter and left her message 11/27
Total time spent to see the patient on the floor, examine the patient, review data and lab results, discuss treatment plan with patient, nursing staff around 51 minutes.
Physical Exam
General: No acute distress
HEENT: Normocephalic, Atraumatic, EOMI, MMM
Respiratory: Clear to Auscultation bilaterally
Cardiac: Normal S1/S2, Regular Rate and Rhythm
GI: Soft, Nontender, Nondistended, Normal Bowel Sounds
Extremities: No Clubbing, Cyanosis, or Edema
Neuro: Slow to respond, oriented to person, place, month/year
Resting tremor with cogwheel rigidity noted
More lethargic
Anticipated Discharge: 24 - 48 hours
Subjective/Interval History
-
Date of Service: November 27, 2024
Patient is more lethargic today. It is difficult to understand her. No fever, no vomiting.
Objective Data
-
Labs:
Laboratory Results
11/27/24
05:56
WBC 5.0
Hgb 10.0 L D
Hct 28.7 L
Plt Count 167
Sodium 139
Potassium 3.5
Chloride 111 H
Carbon Dioxide 28
BUN 10
Creatinine 0.6
Glucose 85
Calcium 8.5
Vital Signs:
Vital Signs
Temp Pulse Resp BP Pulse Ox
97.6 F 75 16 141/64 96
11/27/24 07:14 11/27/24 07:14 11/27/24 07:14 11/27/24 07:14 11/27/24 07:14
I&O
11/26/24 11/27/24 11/28/24
06:59 06:59 06:59
Intake Total 0 / 0 0 / 2440
Balance 0 / 0 0 / 244
[2024-11-27] MEDS: LR 1000 IV ×2 (09:31→23:39)
[2024-11-27 11:12] LABS: Glucose - Point of Care 85 mg/dl (70-99)
--- NOTE | 2024-11-27 11:30 | PTCARENOTE ---
Pt lethargic, will respond with 'what,' when name called, but will not open her eyes when asked. Ate nothing for breakfast- spit out the yogurt. Could not administer her Keppra and Lamictal with lethargy. Made Dr. Kelly Schuster aware, see new orders for
IV Keppra.
[2024-11-27 11:44] LABS: Glucose - Point of Care 74 mg/dl (70-99)
--- NOTE | 2024-11-27 11:45 | CON.ONC ---
Consultation
-
Date Consultation Requested: 11/27/24
Date Consultation Performed: 11/27/24
Requesting Provider: Dr Yao Schuster
Performing Provider: Dr. Lizz Castellano
Reason for Consultation: macrocytic anemia
Impression
Impression
macrocytic anemia
change in mental status
malnutrition, IBS/diarrhea
Plan
Plan
No evidence for B12 or folate deficiency to explain CBC findings
She could have copper deficiency, in the setting of malnutrition/chronic diarrhea, which can cause macrocytic anemia and neurologic findings
I added on serum copper level, and will check ceruloplasmin
I stopped her oral iron, she has no iron deficiency and oral iron could be contributing to diarrhea. More importantly, iron supplements can inhibit copper absorption and cause copper deficiency
Patient History
History of Present Illness
This is an 89 yo F who was recently in with metabolic encephalopathy, seizure d/o, failure to thrive, poor po intake, ERNST and diarrhea, who was at [facility] for only one day, before being sent back to with change in MS and hypoglycemia.
She is unable to provide any history. Review of labs notes fairly chronic macrocytic anemia since 08/2020. She hasn't been evaluated by hematology before. Hgb was 6.6 at admission yesterday with MCV 105. She got 2u prbcs and hgb is now 10. Retic
count is inappropriately normal. No deficiency of B12 or folate. Bilirubin slightly elevated. Iron sat/ferritin are high (on oral iron).
History noted for diarrhea/IBS, malnutrition.
Past-Medical/Surgical History
Past History
Past History
ED Past Medical History: GERD, Seizures (On Kepra) and Other (Scoliosis)
ED Past Surgical History: Appendectomy, Gynecological (Hysterectomy) and Orthopedic
Social History
Tobacco: Non-smoker
Alcohol: None
Drug: None
Living: [facility]
Patient Medication
�Medication �Instructions �Recorded �Confirmed �Last Taken �Type
atorvastatin 20 mg tablet 20 mg PO HS High Cholesterol 04/03/23 11/23/24 02/04/24 History
aspirin 81 mg tablet,delayed 81 mg PO DAILY Blood Clot 12/29/23 11/23/24 02/06/24 History
release Prevention/Tx
cholecalciferol (vitamin D3) 25 50 mcg PO DAILY Supplement 12/29/23 11/23/24 02/06/24 History
mcg (1,000 unit) tablet
famotidine 20 mg tablet (Pepcid AC) 20 mg PO BIDPRN PRN gerd 12/29/23 11/23/24 Unknown History
lamotrigine 150 mg tablet 150 mg PO BID Seizures 02/06/24 11/23/24 02/06/24 History
carboxymethylcellulose 0.5 1 drp BOTH EYES BIDPRN PRN dry eyes 11/23/24 11/23/24 Unknown History
%-glycerin 0.9 % eye drops
(Refresh Optive)
conjugated estrogens 0.625 mg/gram 1 applic vaginal MOWEFR PRN 11/23/24 11/23/24 Unknown History
vaginal cream (Premarin) hormones
ferrous sulfate 325 mg (65 mg 325 mg PO Q48H Supplement 11/23/24 11/23/24 Unknown History
iron) tablet
levetiracetam 250 mg tablet 500 mg PO BID Seizures 11/23/24 11/23/24 Unknown History
(Keppra)
melatonin 3 mg tablet 3 mg PO HSPRN PRN sleep 11/23/24 11/23/24 Unknown History
Active Medications
Generic Name Dose Route Start Last Admin
Trade Name Freq PRN Reason Stop Dose Admin
Acetaminophen 650 mg 11/26/24 06:02
Acetaminophen 325 Mg Tablet PO 12/24/24 06:01
Q4HPRN PRN
mild pain/GARCIA/temp> 100.4F
Atorvastatin Calcium 20 mg 11/26/24 22:00 11/26/24 20:43
Atorvastatin (Lipitor) 20 Mg Tablet PO 12/24/24 21:59 20 mg
HS ERASTO Administration
Bisacodyl 10 mg 11/26/24 06:02
Bisacodyl 10 Mg Rectal Suppository RECTAL 12/24/24 06:01
[id number] PRN
constipation
Carboxymethylcellulose Sodium 1 drops 11/26/24 06:02
Carboxymethylcellulose Ophth Gel (Celluvisc) Droperette BOTH EYES
BIDPRN PRN
dry eyes
Enoxaparin Sodium 30 mg 11/26/24 18:00 11/26/24 17:23
Enoxaparin Sodium 30 Mg/0.3 Ml Syringe SC 12/24/24 17:59 30 mg
QPM ERASTO Administration
Lactated Ringer's 1,000 mls @ 75 mls/hr 11/26/24 04:15 11/27/24 09:31
Lr IV 1,000 mls
.[id number] ERASTO Administration
Lamotrigine 150 mg 11/26/24 08:00 11/26/24 20:39
Lamotrigine 100 Mg Tablet PO 12/24/24 07:59 150 mg
BID ERASTO Administration
Levetiracetam 500 mg 11/27/24 12:00
Levetiracetam (100 Mg/Ml) 500 Mg/5 Ml Vial IV 12/25/24 11:59
Q12 ERASTO
Polyethylene Glycol 17 grams 11/26/24 06:02
Polyethylene Glycol Powder 17 Grams Packet PO 12/24/24 06:01
DAILYPRN PRN
constipation
Senna/Docusate Sodium 1 tablet 11/26/24 06:02
Docusate W/Senna (Sera-Colace) Tablet PO 12/24/24 06:01
BIDPRN PRN
constipation
Sodium Chloride 0 flush 11/26/24 04:00 11/26/24 20:47
Sodium Chloride 0.9% (Flush) Syringe IV 12/24/24 03:59 1 flush
PER PROTOCOL ERASTO Administration
Physical Exam
-
General: Other (difficult to arouse); Negative Conversant
HEENT: Negative Jaundice
Cardiology: Normal Sinus Rhythm
GI: Soft
Musculoskeletal: No Clubbing, No Cyanosis and No Edema
Neurology: Other (difficult to arouse)
Skin: Warm and Dry
Labs
Lab Results
WBC 5.0 10^3/uL (4.8-10.8) 11/27/24 05:56
RBC 2.95 10^6/uL (4.20-5.40) L 11/27/24 05:56
Hgb 10.0 g/dL (12.0-16.0) L D 11/27/24 05:56
Hct 28.7 % (37.0-47.0) L 11/27/24 05:56
MCV 97.3 fL (81.0-99.0) 11/27/24 05:56
MCH 33.9 pg (27.0-31.0) H 11/27/24 05:56
MCHC 34.8 g/dL (33.0-37.0) 11/27/24 05:56
RDW 20.3 % (11.5-14.5) H 11/27/24 05:56
Plt Count 167 10^3/uL (130-400) 11/27/24 05:56
MPV 10.1 fL (7.4-10.4) 11/27/24 05:56
Abs Immat Gran (auto) 0.0 10^3/uL (0-0.05) 11/26/24 01:15
Absolute Neuts (auto) 6.4 10^3/uL (1.4-6.5) 11/26/24 01:15
Absolute Lymphs (auto) 0.8 10^3/uL (1.2-3.4) L 11/26/24 01:15
Absolute Monos (auto) 0.6 10^3/uL (0.1-0.6) 11/26/24 01:15
Absolute Eos (auto) 0.1 10^3/uL (0-0.7) 11/26/24 01:15
Absolute Basos (auto) 0.1 10^3/uL (0-0.2) 11/26/24 01:15
Immature Gran % 0.5 % (0-0.5) 11/26/24 01:15
Neutrophils % 80.0 % (42.2-75.2) H 11/26/24 01:15
Lymphocytes % 10.4 % (20.5-51.1) L 11/26/24 01:15
Monocytes % 7.4 % (1.7-9.3) 11/26/24 01:15
Eosinophils % 1.1 % (0-6) 11/26/24 01:15
Basophils % 0.6 % (0-2) 11/26/24 01:15
Creatinine 0.6 mg/dL (0.6-1.0) 11/27/24 05:56
Vital Signs
Vital Signs
Temp Pulse Resp BP Pulse Ox
97.4 F 65 16 139/55 95
11/27/24 11:28 11/27/24 11:28 11/27/24 11:28 11/27/24 11:28 11/27/24 11:28
[2024-11-27] MEDS: KEPPRA 500 MG IV ×2 (12:21→20:04)
[2024-11-27] MEDS: LAMICTAL PO ×2 (12:21→21:04)
[2024-11-27] MEDS: KEPPRA PO (12:22)
[2024-11-27 12:39] LABS: Glucose - Point of Care 77 mg/dl (70-99)
--- NOTE | 2024-11-27 12:45 | PTCARENOTE ---
Pt is very difficult to arouse, even by tactile stimuli. She got the IV Keppra 500mg at 1225. BP 135/56, HR 60s in SR, Blood sugar obtained at 1240, [address] Schuster and Dr. Loza aware of above, continuing to monitor.
[2024-11-27] MEDS: MAGNESIUM SULFATE 50 IV (12:53)
[2024-11-27] MEDS: FLUSH (NSS) 2 FLUSH IV (12:56)
[2024-11-27 15:52] LABS: Glucose - Point of Care 91 mg/dl (70-99)
--- NOTE | 2024-11-27 16:10 | PTCARENOTE ---
Pt back from Head CT, pt has not talked but she did open her one eye and squeezed RN's hand when asked, then back to sleep. Updated Dr. Loza and Dr. Schuster, will continue to monitor.
--- NOTE | 2024-11-27 16:56 | W.PN.NEURO.1 ---
Today's Communication / Plan
-
Keppra 500 BID
Load Vimpat 300, start Vimpat 100 BID
Lamictal 150 BID on hold
EEG Friday if not improving
Neuro Assessment/Plan
Assessment
EEG >1 hr 04/2024 showed nonconvulsive seizures and interictal spike and wave discharges
Head CT 11/27 imgs and rept rev'd, agree mild atrophy and microvascular changes
Parkinson's disease, will consider starting Sinemet 25/100 TID before meals if she's more awake tomorrow
Dementia, by the description of baseline independent ADLs, does own laundry, the dementia would be mild, or perhaps early moderate; don't believe that this is causing her poor PO intake
Epilepsy continue Keppra 500 BID, poor mental status/unable to take po, Lamictal 150 BID on hold, switch to Vimpat, load Vimpat 300, start Vimpat 100 mg BID IV
however if she is off Lamictal ~5 days may need to restart Lamictal 25 BID and re titrate
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 EEG Friday if not
improving
Plan
Keppra 500 BID
Load Vimpat 300, start Vimpat 100 BID
Lamictal 150 BID on hold
EEG Friday if not improving
Subjective/Objective
Subjective Data
Date of Service: November 27, 2024
seen late this morning, patient mental status continued to deteriorate
advised starting with head CT, chest Xray
Objective Data
Vital Signs
Temp Pulse Resp BP Pulse Ox
36.3 C 68 16 140/63 96
11/27/24 15:01 11/27/24 15:01 11/27/24 15:01 11/27/24 15:01 11/27/24 15:01
Lab Results
11/27/24 05:56
11/27/24 05:56
Sodium 139 mmol/L (135-145) 11/27/24 05:56
Potassium 3.5 mmol/L (3.5-5.1) 11/27/24 05:56
BUN 10 mg/dl (7-17) 11/27/24 05:56
Glucose 85 mg/dl (70-99) 11/27/24 05:56
Calcium 8.5 mg/dl (8.4-10.2) 11/27/24 05:56
Phosphorus 2.3 mg/dl (2.5-4.5) L 11/26/24 01:15
Vitamin B12 > 1000 pg/ml (239-931) H 11/26/24 01:15
Patient Allergies
bacitracin Allergy (Verified 11/26/24 01:08)
Unknown
erythromycin base Allergy (Verified 11/26/24 01:08)
Unknown
Gramicidins Allergy (Verified 11/26/24 01:08)
Unknown
iodine Allergy (Verified 11/26/24 01:08)
Unknown
neomycin Allergy (Verified 11/26/24 01:08)
Unknown
Penicillins Allergy (Verified 11/26/24 01:08)
patient states she gets mouth swelling with penicillin
polymyxin B Allergy (Verified 11/26/24 01:08)
Unknown
povidone-iodine Allergy (Verified 11/26/24 01:08)
Unknown
soap Allergy (Verified 11/26/24 01:08)
Unknown
Sulfa (Sulfonamide Antibiotics) Allergy (Verified 11/26/24 01:08)
Unknown
sulfamethoxazole Allergy (Verified 11/26/24 01:08)
Unknown
tetracycline Allergy (Verified 11/26/24 01:08)
Unknown
trimethoprim Allergy (Verified 11/26/24 01:08)
Unknown
Physical Exam
-
localize and withdraw to deep noxious stim in bilateral lower ext only
--- NOTE | 2024-11-27 17:30 | PTCARENOTE ---
Pt now awake, confused conversation, stating that we have been lying to her all day. No noted slurring, remains soft spoken. Unable to tell RN where she is or time. Denying any pain. Will attempt to have pt eat dinner now that she is awake. Updated
Dr. Schuster.
[2024-11-27] MEDS: VIMPAT 300 MG IV (18:06)
[2024-11-27] MEDS: LOVENOX 30 MG SC (18:07)
[2024-11-27 18:16] LABS: Glucose - Point of Care 80 mg/dl (70-99)
[2024-11-27] MEDS: SINEMET 25-100 PO (21:04)
[2024-11-27] MEDS: LIPITOR PO (21:05)
[2024-11-27 23:58] LABS: Glucose - Point of Care 80 mg/dl (70-99)
[2024-11-28] VITALS (7 sets, daily range): BP systolic 128–159; BP diastolic 54–63
[2024-11-28 06:01] LABS: Hematocrit 30.1 % (37.0-47.0); Hemoglobin 10.3 g/dL (12.0-16.0); Mean Corp Hgb Conc. 34.2 g/dL (33.0-37.0); Mean Corpuscular Hgb 33.7 pg (27.0-31.0); Mean Corpuscular Volume 98.4 fL (81.0-99.0); Mean Platelet Volume 10.2 fL (7.4-10.4); Platelet Count 177 10^3/uL (130-400); Red Blood Cell Count 3.06 10^6/uL (4.20-5.40); Red Cell Dist. Width 19.1 % (11.5-14.5); White Blood Cell Count 6.2 10^3/uL (4.8-10.8)
[2024-11-28 06:15] LABS: Glucose - Point of Care 71 mg/dl (70-99)
[2024-11-28 06:29] LABS: Blood Urea Nitrogen 9 mg/dl (7-17); Calcium 8.3 mg/dl (8.4-10.2); Carbon Dioxide 28 mmol/L (22-30); Chloride 111 mmol/L (98-107); Estimated Creatinine Clearance 44 ml/min; Glucose 74 mg/dl (70-99); Potassium 3.3 mmol/L (3.5-5.1); Sodium 139 mmol/L (135-145); eGFR > 60.00
--- NOTE | 2024-11-28 08:53 | W.PN.HOSP.TC ---
Today's Communication/Plan
-
see bold
Assessment / Plan
Assessment / Plan
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
40 by EMS.
According to nursing staff at the [facility] patient's was less interactive and was not acting correctly. When they checked her blood pressure was 60 systolic. Her blood glucose was 40. EMS was called. EMS found her obtunded. She
was given D5 normal saline by EMS. On arrival in the emergency department blood sugar was greater than 100. Patient unable to provide much history. Speech slightly slurred. Denies any abdominal pain, nausea, vomiting, headache. Says she feels
dehydrated and doesn't have any appetite. She remembers eating something yesterday but unable to tell me what. Staff reported some shaking twitching.
#Acute encephalopathy
Periods of lethargy/hypersomnolence alternating with periods of being awake and alert
No infectious etiology identified
Concerning for seizure activity versus waxing waning Parkinson's
Appreciate neurology input, check brain MRI, check EEG
#Newly diagnosed Parkinson's disease
Started on Sinemet this admission
# History of seizure disorder
Keppra changed to IV due to lethargy and patient not taking p.o. 11/27
Patient given IV Vimpat on 11/27 when she was not taking p.o.
Continue p.o. Lamictal as able
Follow-up EEG as above
#Megaloblastic anemia
Hemoglobin 10.0 today, improved from 6.6 upon admission status post 2 units packed red blood cells
B12/folic acid levels are normal, iron stores are adequate
Appreciate hematology input, check copper level, check ceruloplasmin, as copper deficiency can also cause megaloblastic anemia
Hematology recommends stopping ferrous sulfate as there is no iron deficiency
Monitor hemoglobin, follow-up methylmalonic acid -send out test
#Generalized weakness
Patient initially from home, was discharged to short-term rehab on 11/24, and sent back to the ER on 11/25
PT/OT
#Hypoglycemic encephalopathy
Resolved
Continue Accu-Cheks every 6 hours
#Hypotension
Resolved with IV fluids, monitor
#Hypokalemia
Replete as needed
#Hypomagnesemia
Repleted and resolved
#Hyperlipidemia
Continue statin
DVT prophylaxis�Lovenox 30 mg subcu daily
DNR
Updated daughter on phone 11/28
Total time spent to see the patient on the floor, examine the patient, review data and lab results, discuss treatment plan with patient, nursing staff around 53 minutes.
Physical Exam
General: Lethargic, no acute distress
HEENT: Normocephalic, Atraumatic, EOMI, MMM
Respiratory: Clear to Auscultation bilaterally
Cardiac: Normal S1/S2, Regular Rate and Rhythm
GI: Soft, Nontender, Nondistended, Normal Bowel Sounds
Extremities: No Clubbing, Cyanosis
Mild bilateral lower extremity edema
Neuro: Slow to respond, intermittent lethargy/hypersomnolence with periods of being awake/alert
Resting tremor with cogwheel rigidity noted
Anticipated Discharge: > 48 hours
Subjective/Interval History
-
Date of Service: November 28, 2024
Patient has been exhibiting intermittent waxing waning mental status, with periods of lethargy alternating with periods of being more awake and alert. This morning, she was not really answering questions. Later on, nursing staff reports that she
woke up, and could state her name, and that she was at [facility]. No fever, no vomiting, no diarrhea.
Objective Data
-
Labs:
Laboratory Results
11/28/24
05:38
WBC 6.2
Hgb 10.3 L
Hct 30.1 L
Plt Count 177
Sodium 139
Potassium 3.3 L
Chloride 111 H
Carbon Dioxide 28
BUN 9
Creatinine 0.6
Glucose 74
Calcium 8.3 L
Vital Signs:
Vital Signs
Temp Pulse Resp BP Pulse Ox
98.4 F 73 12 159/57 96
11/28/24 07:14 11/28/24 07:14 11/28/24 07:14 11/28/24 07:14 11/28/24 07:14
I&O
11/27/24 11/28/24 11/29/24
06:59 06:59 06:59
Intake Total 2439 / 0 1849
Balance 2439 / 0 1849
[2024-11-28] MEDS: KEPPRA 500 MG IV ×2 (09:47→19:47)
[2024-11-28] MEDS: FLUSH (NSS) 2 FLUSH IV (09:47)
[2024-11-28] MEDS: SINEMET 25-100 PO (09:49)
[2024-11-28] MEDS: SINEMET 25-100 1 TABLET PO ×3 (09:53→18:24)
[2024-11-28] MEDS: LAMICTAL 150 MG PO ×2 (09:53→19:46)
--- NOTE | 2024-11-28 10:58 | W.PN.NEURO.1 ---
Addendum entered and electronically signed by Rylan Loza MD 11/28/24 21:36:
patient woke up as edger technician arrives for STAT study
EEG showing continuous generalized slow without seizures or epileptiform activity
brain MRI today with mild diffuse atrophy and microvascular changes
thus far no treatable illness to explain her being mostly minimally responsive, with brief periods of wakefulness.
suspect this may end up being end stage failure to thrive, I.E. due to chronically poor PO intake.
Original Note:
Today's Communication / Plan
-
stat EEG
mri brain w and w/o contrast
Neuro Assessment/Plan
Assessment
EEG >1 hr 04/2024 showed nonconvulsive seizures and interictal spike and wave discharges
Head CT 11/27 imgs and rept rev'd, agree mild atrophy and microvascular changes
Parkinson's disease, Sinemet 25/100 TID before meals if she's more awake
Dementia, by the description of baseline independent ADLs, does own laundry, the dementia would be mild, or perhaps early moderate; don't believe that this is causing her poor PO intake
Epilepsy continue Keppra 500 BID, poor mental status/unable to take po, Lamictal 150 BID, will switch to Vimpat 100 BID if unable to take PO,
however if she is off Lamictal ~5 days may need to restart Lamictal 25 BID and re titrate
Altered mental status, appears that she deteriorated rapidly/gradually over ~24 hrs, with brief periods of wakefulness. 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
not noted today. stat EEG was requested, when the tech came in, the patient woke up and was oriented to place/year
EEG showing continuous generalized slowing
Plan
Keppra 500 BID
Lamictal 150 BID, or Vimpat 100 if unable to take PO
EEG stat r/o status epilepticus
MRI brain w/o and contrast but not expecting to find anything
Subjective/Objective
Subjective Data
Date of Service: November 28, 2024
yesterday afternoon patient was awake, sitting up, talking and following commands ~30 mins before again becoming unresponsive; had another episode of wakefulness last evening, and again this morning where she took her meds, knew her birthday, and
her dtr's name.
at time of my evaluation patient again minimally responsive
Objective Data
Vital Signs
Temp Pulse Resp BP Pulse Ox
36.9 C 73 12 159/57 96
11/28/24 07:14 11/28/24 07:14 11/28/24 07:14 11/28/24 07:14 11/28/24 07:14
Lab Results
11/28/24 05:38
11/28/24 05:38
Sodium 139 mmol/L (135-145) 11/28/24 05:38
Potassium 3.3 mmol/L (3.5-5.1) L 11/28/24 05:38
BUN 9 mg/dl (7-17) 11/28/24 05:38
Glucose 74 mg/dl (70-99) 11/28/24 05:38
Calcium 8.3 mg/dl (8.4-10.2) L 11/28/24 05:38
Phosphorus 2.3 mg/dl (2.5-4.5) L 11/26/24 01:15
Vitamin B12 > 1000 pg/ml (239-931) H 11/26/24 01:15
Patient Allergies
bacitracin Allergy (Verified 11/26/24 01:08)
Unknown
erythromycin base Allergy (Verified 11/26/24 01:08)
Unknown
Gramicidins Allergy (Verified 11/26/24 01:08)
Unknown
iodine Allergy (Verified 11/26/24 01:08)
Unknown
neomycin Allergy (Verified 11/26/24 01:08)
Unknown
Penicillins Allergy (Verified 11/26/24:08)
patient states she gets mouth swelling with penicillin
polymyxin B Allergy (Verified 11/26/24:08)
Unknown
povidone-iodine Allergy (Verified 11/26/24:08)
Unknown
soap Allergy (Verified 11/26/24:08)
Unknown
Sulfa (Sulfonamide Antibiotics) Allergy (Verified 11/26/24:08)
Unknown
sulfamethoxazole Allergy (Verified 11/26/24:08)
Unknown
tetracycline Allergy (Verified 11/26/24:08)
Unknown
trimethoprim Allergy (Verified 11/26/24:)
Unknown
Physical Exam
-
stuporous
briefly opens eyes to deep noxious stim, nonverbal, does not follow commands,
face symmetric, temporal wasting
diffuse muscle atrophy
localize and withdraw bilateral lower ext
no response to noxious stim upper ext
no meningeal signs
[2024-11-28] MEDS: KCL 260 MEQ IV (11:31)
[2024-11-28 12:07] LABS: Glucose - Point of Care 84 mg/dl (70-99)
[2024-11-28] MEDS: ZOFRAN 4 MG IV (13:36)
[2024-11-28 13:48] LABS: Glucose - Point of Care 81 mg/dl (70-99)
--- NOTE | 2024-11-28 14:47 | EEG.RPT ---
Electroencephalogram Report
Recording
Date of EE11/28/24
Type of EEG: Routine
Length of EEG recordin mins
Done with Video Recording: Yes
Patient Status: Inpatient
Recording Conditions: Awake, Drowsy, Moving and Confused
Hyperventilation Performed: No
Photic Stimulation Performed: Yes
Report
Clinical Background:�89 year old woman with history of epilepsy, and prior episode of status epilepticus, presenting with altered mental status
Meds: Keppra 500 BID, Lamictal 150 BID, was loaded Vimpat 300 yesterday
Introduction: A STAT bedside EEG was done using [employer] 10-20 electrode placement protocol.
Background: In the most alert state, there is continuous generalized slowing with moderate amplitude polymorphic theta activity, 6-7 Hz. There is spontaneous variability and reactivity.�
Sleep: No sleep is seen.�
Focal/epileptiform: There were no focal or epileptiform discharges. No clinical or electrographic seizures occurred during this recording.
Photic stimulation: resulted in normal driving response. There was no photo myogenic or photoparoxysmal response.�
Impression: continuous generalized slowing
Clinical correlation: mild generalized cerebral dysfunction.
[2024-11-28] MEDS: LR 1000 IV (15:58)
[2024-11-28] MEDS: TYLENOL 650 MG PO (16:08)
--- NOTE | 2024-11-28 17:00 | PTCARENOTE ---
Pt up to come off telemetry per protocol. Dr. Schuster requests that pt stay on telemetry with seizure risk.
[2024-11-28 17:38] LABS: Glucose - Point of Care 94 mg/dl (70-99)
[2024-11-28] MEDS: LOVENOX 30 MG SC (18:24)
--- NOTE | 2024-11-28 18:31 | PTCARENOTE ---
Pt has been sleepy but easily arousable, opening eyes spontaneously since around 1230 today. Pt completely oriented to person, place, and time. Pt stating that she was feeling nauseous after EEG done, Dr. Schuster aware and PRN Zofran administered prior
to Brain MRI. Zofran effective.
Pt able to eat a little of applesauce, yogurt, drink water without difficulty. Pt did complain of headache, unable to rate, at 1609, Tylenol 650mg administered. Pt also noted when RN completing neurological check that the light to check her pupils
bothered her. Made Dr. Loza and Dr. Schuster aware of this.
[2024-11-28] MEDS: LIPITOR 20 MG PO (19:47)
[2024-11-29 00:02] LABS: Glucose - Point of Care 120 mg/dl (70-99)
[2024-11-29] MEDS: LR IV (00:59)
[2024-11-29 03:22] VITALS: BP 143/58
[2024-11-29] MEDS: LR 1000 IV (05:18)
[2024-11-29 06:01] LABS: Glucose - Point of Care 90 mg/dl (70-99)
[2024-11-29 07:32] VITALS: BP 148/66
[2024-11-29] MEDS: LAMICTAL 150 MG PO (07:32)
[2024-11-29] MEDS: SINEMET 25-100 1 TABLET PO ×3 (07:32→16:17)
[2024-11-29] MEDS: FLUSH (NSS) 1 FLUSH IV (07:33)
[2024-11-29] MEDS: KEPPRA 500 MG IV ×2 (07:33→20:55)
[2024-11-29 07:42] LABS: Blood Urea Nitrogen 9 mg/dl (7-17); Calcium 8.4 mg/dl (8.4-10.2); Carbon Dioxide 30 mmol/L (22-30); Chloride 108 mmol/L (98-107); Estimated Creatinine Clearance 44 ml/min; Glucose 70 mg/dl (70-99); Magnesium 1.8 mg/dl (1.6-2.3); Potassium 3.7 mmol/L (3.5-5.1); Sodium 138 mmol/L (135-145); eGFR > 60.00
[2024-11-29 07:52] LABS: Hematocrit 30.1 % (37.0-47.0); Hemoglobin 10.3 g/dL (12.0-16.0); Mean Corp Hgb Conc. 34.2 g/dL (33.0-37.0); Mean Corpuscular Hgb 33.9 pg (27.0-31.0); Mean Platelet Volume 10.6 fL (7.4-10.4); Platelet Count 143 10^3/uL (130-400); Red Blood Cell Count 3.04 10^6/uL (4.20-5.40); Red Cell Dist. Width 18.5 % (11.5-14.5); White Blood Cell Count 4.9 10^3/uL (4.8-10.8)
--- NOTE | 2024-11-29 07:59 | W.PN.NEURO.1 ---
Today's Communication / Plan
-
Increase Lamictal from 150 BID to a dosing of 200 mg twice a day
Continue Keppra 500 BID
Continue carbidopa/levodopa 25/100 1 tablet before meals
Restart patient's typical aspirin 81 mg daily to reduce risk of stroke recurrence
Continue atorvastatin 20 mg at bedtime
Neuro Assessment/Plan
Assessment
EEG >1 hr 04/2024 showed nonconvulsive seizures and interictal spike and wave discharges
Less than 1 hour EEG performed 11/28/2024, read by covering neurologist suggested mild generalized slowing
Head CT 11/27 imgs and rept rev'd, mild atrophy and microvascular changes
MRI of the brain performed 11/28/2024 indicated no acute changes and significant atrophy with white matter hyperintensities
Parkinson's disease
Prior history of stroke in 2022
Dementia, by the description of baseline independent ADLs, does own laundry, the dementia would be mild, or perhaps early moderate
Altered mental status, appears that she deteriorated rapidly/gradually over ~24 hrs, with brief periods of wakefulness. Most likely secondary to recurrent seizures.
Plan
Increase Lamictal from 150 BID to a dosing of 200 mg twice a day
Continue Keppra 500 BID
Continue carbidopa/levodopa 25/100 1 tablet before meals
Restart patient's typical aspirin 81 mg daily to reduce risk of stroke recurrence
Continue atorvastatin 20 mg at bedtime
Will follow as outpatient
Subjective/Objective
Subjective Data
Date of Service: November 29, 2024
Objective Data
Vital Signs
Temp Pulse Resp BP Pulse Ox
36.6 C 75 14 148/66 95
11/29/24 07:32 11/29/24 07:32 11/29/24 07:32 11/29/24 07:32 11/29/24 07:32
Lab Results
11/29/24 06:38
11/29/24 06:38
Sodium 138 mmol/L (135-145) 11/29/24 06:38
Potassium 3.7 mmol/L (3.5-5.1) 11/29/24 06:38
BUN 9 mg/dl (7-17) 11/29/24 06:38
Glucose 70 mg/dl (70-99) 11/29/24 06:38
Calcium 8.4 mg/dl (8.4-10.2) 11/29/24 06:38
Phosphorus 2.3 mg/dl (2.5-4.5) L 11/26/24 01:15
Vitamin B12 > 1000 pg/ml (239-931) H 11/26/24:15
Patient Allergies
bacitracin Allergy (Verified 11/26/24 01:08)
Unknown
erythromycin base Allergy (Verified 11/26/24 01:08)
Unknown
Gramicidins Allergy (Verified 11/26/24 01:08)
Unknown
iodine Allergy (Verified 11/26/24 01:08)
Unknown
neomycin Allergy (Verified 11/26/24 01:08)
Unknown
Penicillins Allergy (Verified 11/26/24 01:08)
patient states she gets mouth swelling with penicillin
polymyxin B Allergy (Verified 11/26/24 01:08)
Unknown
povidone-iodine Allergy (Verified 11/26/24 01:08)
Unknown
soap Allergy (Verified 11/26/24 01:08)
Unknown
Sulfa (Sulfonamide Antibiotics) Allergy (Verified 11/26/24 01:08)
Unknown
sulfamethoxazole Allergy (Verified 11/26/24 01:08)
Unknown
tetracycline Allergy (Verified 11/26/24 01:08)
Unknown
trimethoprim Allergy (Verified 11/26/24 01:08)
Unknown
Data Reviewed
-
MRI Head: Report Reviewed
Labs: Report Reviewed
Reviewed with: Physician
Old Records: Summarized
Past History
Past History
ED Past Medical History: CVA (Left frontoparietal ischemic stroke March 2023), GERD, Seizures (On Kepra) and Other (Scoliosis, osteoporosis, iron deficiency anemia)
ED Past Surgical History: Appendectomy, Gynecological (Hysterectomy) and Orthopedic
Social History
Tobacco: Non-smoker
Alcohol: None
Drug: None
Living: custodial
Family History
Family History: Other (Reviewed and noncontributory)
Medications
-
Medications:
Generic Name Dose Route Start Last Admin
Trade Name Freq PRN Reason Stop Dose Admin
Acetaminophen 650 mg 11/26/24 06:02 11/28/24 16:08
Acetaminophen 325 Mg Tablet PO 12/24/24 06:01 650 mg
Q4HPRN PRN Administration
mild pain/GARCIA/temp> 100.4F
Atorvastatin Calcium 20 mg 11/26/24 22:00 11/28/24 19:47
Atorvastatin (Lipitor) 20 Mg Tablet PO 12/24/24 21:59 20 mg
HS ERASTO Administration
Bisacodyl 10 mg 11/26/24 06:02
Bisacodyl 10 Mg Rectal Suppository RECTAL 12/24/24 06:01
[id number] PRN
constipation
Carbidopa/Levodopa 1 tablet 11/27/24 18:35 11/29/24 07:32
Carbidopa (25 Mg)/Levodopa (100 Mg) Regular Release Tablet PO 12/25/24 18:34 1 tablet
AC ERASTO Administration
Carboxymethylcellulose Sodium 1 drops 11/26/24 06:02
Carboxymethylcellulose Ophth Gel (Celluvisc) Droperette BOTH EYES
BIDPRN PRN
dry eyes
Dextrose 12.5 grams 11/28/24 06:32
Dextrose 50% (0.5 Grams/Ml) 50 Ml Syringe IV 12/26/24 06:31
[id number] PRN
hypoglycemia
Enoxaparin Sodium 30 mg 11/26/24 18:00 11/28/24 18:24
Enoxaparin Sodium 30 Mg/0.3 Ml Syringe SC 12/24/24 17:59 30 mg
QPM ERASTO Administration
Lactated Ringer's 1,000 mls @ 75 mls/hr 11/26/24 04:15 11/29/24 05:18
Lr IV 1,000 mls
.[id number] ERASTO Administration
Lamotrigine 200 mg 11/29/24 08:04
Lamotrigine 100 Mg Tablet PO 12/24/24 07:59
BID ERASTO
Lamotrigine 50 mg 11/29/24 08:04
Lamotrigine 25 Mg Chewable Tablet PO 11/29/24 08:05
ONCE ONE
Levetiracetam 500 mg 11/27/24 12:00 11/29/24 07:33
Levetiracetam (100 Mg/Ml) 500 Mg/5 Ml Vial IV 12/25/24 11:59 500 mg
Q12 ERASTO Administration
Polyethylene Glycol 17 grams 11/26/24 06:02
Polyethylene Glycol Powder 17 Grams Packet PO 12/24/24 06:01
DAILYPRN PRN
constipation
Senna/Docusate Sodium 1 tablet 11/26/24 06:02
Docusate W/Senna (Sera-Colace) Tablet PO 12/24/24 06:01
BIDPRN PRN
constipation
Sodium Chloride 0 flush 11/26/24 04:00 11/29/24 07:33
Sodium Chloride 0.9% (Flush) Syringe IV 12/24/24 03:59 1 flush
PER PROTOCOL ERASTO Administration
[2024-11-29] MEDS: LAMICTAL 50 MG PO (08:56)
[2024-11-29] MEDS: ASPIR LOW (ENTERIC COATED) 81 MG PO (08:56)
--- NOTE | 2024-11-29 11:14 | W.PN.HOSP.TC ---
Today's Communication/Plan
-
see A/P
Assessment / Plan
Assessment / Plan
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
According to nursing staff at the care home facility, patient's was less interactive and was not acting correctly. When they checked her blood pressure it was 60 systolic. Her blood glucose was 40. EMS was called. EMS found her obtunded.
She was given D5 normal saline by EMS. On arrival to the emergency department, her blood sugar improved to greater than 100.
Patient unable to provide much history. Speech slightly slurred.
A/P:
# Acute metabolic encephalopathy due to hypoglycemia/hypotension
Periods of lethargy/hypersomnolence alternating with periods of awake and alert
No infectious etiology identified
MRI brain: No evidence of acute intracranial abnormality.
EEG showed continuous generalized slowing
Appreciate neuro input, so far no treatable illness to explain her alternating MS (minimally responsive, with brief periods of wakefulness).
# Newly diagnosed Parkinson's disease
Started on Sinemet this admission
Recc outpt neuro eval
# History of seizure disorder
Keppra changed to IV due to lethargy and patient not taking p.o. 11/27
Patient given IV Vimpat on 11/27 when she was not taking p.o.
Continue p.o. Lamictal as able
# Macrocytic anemia
status post 2 units packed red blood cells
Hemoglobin improved from 6.6 on admission to 10.3 today
B12/folic acid levels are normal, iron stores are adequate
Appreciate hematology input, check copper level, check ceruloplasmin, as copper deficiency can also cause megaloblastic anemia
Hematology recommends stopping ferrous sulfate as there is no iron deficiency
Monitor hemoglobin, follow-up methylmalonic acid - send out test
# Generalized weakness
Patient initially from home, was discharged to short-term rehab on 11/24, and sent back to the ER on 11/25
PT/OT recc SNF
# Hypoglycemic encephalopathy, resolved
Continue Accu-Cheks every 6 hours
# Hypotension
Resolved with IV fluids, monitor
# Hypokalemia
Replete as needed
# Hypomagnesemia
Repleted and resolved
# Hyperlipidemia
Continue statin
DVT prophylaxis� Lovenox 30 mg subcu daily
DNR
Updated daughter on phone
total time spent 51 min
Anticipated Discharge: 24 - 48 hours
Subjective/Interval History
-
Date of Service: November 29, 2024
Objective Data
-
Labs:
Laboratory Results
11/29/24
06:38
WBC 4.9
Hgb 10.3 L
Hct 30.1 L
Plt Count 143
Sodium 138
Potassium 3.7
Chloride 108 H
Carbon Dioxide 30
BUN 9
Creatinine 0.5 L
Glucose 70
Calcium 8.4
Vital Signs:
Vital Signs
Temp Pulse Resp BP Pulse Ox
36.6 C 75 14 148/66 94
11/29/24 07:32 11/29/24 07:32 11/29/24 07:32 11/29/24 07:32 11/29/24 09:30
I&O
11/28/24 11/29/24 11/30/24
06:59 06:59 06:59
Intake Total 0 / 0 1250 / 1250 180 / 180
Output Total 350 / 350
Balance 1850 / 1850 900 / 900 180 / 180
Review of Systems
-
Unable to obtain full review of systems at this time due to: Dementia
History Source: Patient
Physical Exam
-
General: Well Developed, No Apparent Distress, Comfortable, Conversant and Appears Chronically Ill
HEENT: Normocephalic, Atraumatic and Moist Mucous Membranes
Respiratory: Clear to Auscultation and Non Labored Respirations; Negative Accessory Resp Muscle Use
Cardiac: Regular Rhythm and S1/S2
GI: Soft, Nontender, Nondistended and Normal Bowel Sounds; Negative Organomegaly
Rectal: Deferred by Provider
Musculoskeletal: No Clubbing, No Cyanosis and No Edema
Skin: Negative Rash
Neuro: Awake and Alert; Negative AO x 3
Psych: Calm and Apparent Dementia
Data Reviewed
-
MRI: Report Reviewed by me and Discussed with Family
Labs: Labs Reviewed by me
[2024-11-29 11:20] VITALS: BP 133/57
[2024-11-29 11:35] LABS: Glucose - Point of Care 96 mg/dl (70-99)
[2024-11-29 15:04] VITALS: BP 138/54
--- NOTE | 2024-11-29 16:15 | PTOTSP ---
ST Acute Care Evaluation
Pt currently presents with clinical signs of mild oropharyngeal dysphagia as well as suspected esophageal dysfunction characterized by prolonged mastication and bolus formation with hard dry solids with reduced bolus formation as evident by diffuse
oral residue inconsistently cleared with liquid washes, occasional weak dry coughing with ingestion of hard dry solids, pt report of change in vocal quality with ingestion of coarse solids, fairly persistent delayed weak throat clearing and change
in vocal quality (and 1x weak cough) with ingestion of thin liquids (both small quantities and large quantities) that are suspicious for possible airway invasion, possibly related to retrograde flow from esophageal dysfunction (deduced by pt's hx of
GERD and pt's reported ongoing reported fear and concern that anything she will consume will exacerbate her reflux and cause her voice further discomfort).
Recommendations:
- Change diet to SOFT BITE SIZED SOLIDS with THIN LIQUIDS and meds whole in puree.
- Aspiration and reflux precautions: HOB upright for all PO intake and for 60 minutes after PO intake; HOB >30 degrees at all times; pt must be fully awake/alert for all PO intake; small bites; small sips; eat/drink slowly; chew food thoroughly;
alternate solids/liquids.
- FIRE PRODUCTION OPERATOR to f/u re: diet tolerance, use of compensatory strategies, and to determine if/when pt would benefit from an updated VFSS (if pt would like to purse - if in line with GOC).
- Consider ENT consult given very weak, breathy, hoarse vocal quality that is inconsistent and fluctuating.
- Consider nutrition consult - pt states she likes supplement drinks and pt has been recently admitted for FTT.
- Consider reflux tx - pt reports her symptoms feel very unmanaged at that's why she is apprehensive about eating/drinking.
[2024-11-29] MEDS: LOVENOX 30 MG SC (17:25)
[2024-11-29] MEDS: NSS (PRESERVATIVE FREE) 10 ML IV (17:26)
[2024-11-29] MEDS: PROTONIX IV 40 MG IV (17:26)
[2024-11-29 17:40] LABS: Glucose - Point of Care 139 mg/dl (70-99)
[2024-11-29 19:21] VITALS: BP 139/59
[2024-11-29] MEDS: LAMICTAL 200 MG PO (20:55)
[2024-11-29] MEDS: LIPITOR 20 MG PO (20:55)
[2024-11-29 21:31] LABS: Ceruloplasmin 18 mg/dL (16-45); Haptoglobin 35 mg/dL (30-200)
[2024-11-29 23:06] VITALS: BP 125/53
[2024-11-30 00:12] LABS: Glucose - Point of Care 119 mg/dl (70-99)
[2024-11-30 03:29] VITALS: BP 141/61
[2024-11-30] MEDS: TYLENOL 650 MG PO (05:19)
[2024-11-30 05:47] LABS: Glucose - Point of Care 97 mg/dl (70-99)
[2024-11-30] MEDS: SINEMET 25-100 1 TABLET PO ×3 (06:35→16:17)
[2024-11-30 07:24] LABS: Hematocrit 28.4 % (37.0-47.0); Hemoglobin 9.8 g/dL (12.0-16.0); Mean Corp Hgb Conc. 34.5 g/dL (33.0-37.0); Mean Corpuscular Hgb 33.7 pg (27.0-31.0); Mean Corpuscular Volume 97.6 fL (81.0-99.0); Mean Platelet Volume 10.1 fL (7.4-10.4); Platelet Count 165 10^3/uL (130-400); Red Blood Cell Count 2.91 10^6/uL (4.20-5.40); Red Cell Dist. Width 17.7 % (11.5-14.5); White Blood Cell Count 4.4 10^3/uL (4.8-10.8)
[2024-11-30] MEDS: LAMICTAL 200 MG PO (07:28)
[2024-11-30] MEDS: ASPIR LOW (ENTERIC COATED) 81 MG PO (07:28)
[2024-11-30] MEDS: NSS (PRESERVATIVE FREE) 10 ML IV (07:29)
[2024-11-30] MEDS: KEPPRA 500 MG IV (07:29)
[2024-11-30] MEDS: FLUSH (NSS) 1 FLUSH IV (07:29)
[2024-11-30] MEDS: PROTONIX IV 40 MG IV (07:29)
[2024-11-30 07:49] LABS: Blood Urea Nitrogen 7 mg/dl (7-17); Calcium 8.3 mg/dl (8.4-10.2); Carbon Dioxide 30 mmol/L (22-30); Chloride 108 mmol/L (98-107); Estimated Creatinine Clearance 44 ml/min; Glucose 90 mg/dl (70-99); Magnesium 1.6 mg/dl (1.6-2.3); Potassium 3.7 mmol/L (3.5-5.1); Sodium 136 mmol/L (135-145); eGFR > 60.00
[2024-11-30 07:50] VITALS: BP 153/68
[2024-11-30 08:07] LABS: Copper, Serum 76.2 ug/dL (80.0-155.0)
--- NOTE | 2024-11-30 09:43 | W.PN.HOSP.TC ---
Addendum entered and electronically signed by Linnea Chiang MD 11/30/24 12:11:
# Underweight
Addendum entered and electronically signed by Linnea Chiang MD 11/30/24 12:11:
Copper level noted to be low at 76 (normal is between 80-155).
Daughter informed of this, and informed that patient can start taking copper containing multivitamin going forward.
Total DC time 40 minutes
Original Note:
Today's Communication/Plan
-
MS appears to be stable, awake and conversant during the time I see her
Dispo planning to SNF
Assessment / Plan
Assessment / Plan
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
According to nursing staff at the group home facility, patient's was less interactive and was not acting correctly. When they checked her blood pressure it was 60 systolic. Her blood glucose was 40. EMS was called. EMS found her obtunded.
She was given D5 normal saline by EMS. On arrival to the emergency department, her blood sugar improved to greater than 100.
Patient unable to provide much history. Speech slightly slurred.
A/P:
# Acute metabolic encephalopathy due to hypoglycemia/hypotension
Periods of lethargy/hypersomnolence alternating with periods of awake and alert
No infectious etiology identified
MRI brain: No evidence of acute intracranial abnormality.
EEG showed continuous generalized slowing
Appreciate neuro input, so far no treatable illness to explain her alternating MS (minimally responsive, with brief periods of wakefulness).
She is now mostly awake during the day time when I see her
# Newly diagnosed Parkinson's disease
Started on Sinemet this admission
Recc outpt neuro eval
# History of seizure disorder
Keppra was changed to IV due to lethargy on 11/27
Patient given IV Vimpat on 11/27 when she was not taking p.o.
Continue p.o. Lamictal as able
# Macrocytic anemia
status post 2 units packed red blood cells
Hemoglobin improved from 6.6 on admission to 10.3 today
B12/folic acid levels are normal, iron stores are adequate
Appreciate hematology input, check copper level, as copper deficiency can also cause megaloblastic anemia
ceruloplasmin level WNL at 18
Hematology recommends stopping ferrous sulfate as there is no iron deficiency
Monitor hemoglobin, follow-up methylmalonic acid - send out test
# Generalized weakness
Patient initially from home, was discharged to short-term rehab on 11/24, and sent back to the ER on 11/25
PT/OT recc SNF
# Hypoglycemic encephalopathy, resolved
Continue Accu-Cheks every 6 hours
# Hypotension
Resolved with IV fluids, monitor
# Hypokalemia
Replete as needed
# Hypomagnesemia
Replete as needed
# Hyperlipidemia
Continue statin
DVT prophylaxis� Lovenox 30 mg subcu daily
DNR
Dispo: SNF
Updated daughter on phone 11/29
Anticipated Discharge: 24 - 48 hours
Subjective/Interval History
-
Date of Service: November 30, 2024
Objective Data
-
Labs:
Laboratory Results
11/30/24
06:39
WBC 4.4 L
Hgb 9.8 L
Hct 28.4 L
Plt Count 165
Sodium 136
Potassium 3.7
Chloride 108 H
Carbon Dioxide 30
BUN 7
Creatinine 0.5 L
Glucose 90
Calcium 8.3 L
Vital Signs:
Vital Signs
Temp Pulse Resp BP Pulse Ox
36.6 C 72 18 153/68 95
11/30/24 07:50 11/30/24 07:50 11/30/24 07:50 11/30/24 07:50 11/30/24 08:35
I&O
11/29/24 11/30/24 12/01/24
06:59 06:59 06:59
Intake Total 1250 / 1250 300 / 300
Output Total 350 / 350
Balance 900 / 900 300 / 300
Review of Systems
-
Unable to obtain full review of systems at this time due to: Dementia
History Source: Patient
Physical Exam
-
General: Well Developed, No Apparent Distress, Comfortable, Conversant and Appears Chronically Ill
HEENT: Normocephalic, Atraumatic and Moist Mucous Membranes
Respiratory: Clear to Auscultation and Non Labored Respirations; Negative Accessory Resp Muscle Use
Cardiac: Regular Rhythm and S1/S2
GI: Soft, Nontender, Nondistended and Normal Bowel Sounds; Negative Organomegaly
Rectal: Deferred by Provider
Musculoskeletal: No Clubbing, No Cyanosis and No Edema
Skin: Negative Rash
Neuro: Awake and Alert; Negative AO x 3
Psych: Calm and Apparent Dementia
Data Reviewed
-
MRI: Report Reviewed by me and Discussed with Family
Labs: Labs Reviewed by me
[2024-11-30] MEDS: MAGNESIUM SULFATE 100 IV (10:11)
[2024-11-30 10:39] VITALS: BP 153/68; PULSE 72
--- NOTE | 2024-11-30 10:42 | W.PN.ONC ---
Addendum entered and electronically signed by Lizz Castellano MD 11/30/24 11:19:
unfortunately, the hospital does not carry copper supplements
rec starting OTC copper supplement (2mg/d) at discharge
Original Note:
Today's Communication / Plan
-
oral copper supplementation for copper deficiency
Impression
Impression
macrocytic anemia, copper deficiency
change in mental status, seizures
malnutrition, IBS/diarrhea
Plan
Plan
Low copper level c/w copper deficiency, which can cause macrocytic anemia
Rec. daily copper supplement (2mg, OTC) - I'm checking with inpatient pharmacist re: supplement options while inpatient
Iron supplement was stopped (can inhibit copper absorption, d/w patient)
Mgmt of seizures per neuro
Subjective/Objective
Subjective/Objective
awake, alert, appropriate
no focal complaints
Vital Signs:
Vital Signs
Temp Pulse Resp BP Pulse Ox
97.9 F 72 18 153/68 95
11/30/24 07:50 11/30/24 07:50 11/30/24 07:50 11/30/24 07:50 11/30/24 08:35
Lab Results:
Laboratory Data
WBC 4.4 10^3/uL (4.8-10.8) L 11/30/24 06:39
Hgb 9.8 g/dL (12.0-16.0) L 11/30/24 06:39
Plt Count 165 10^3/uL (130-400) 11/30/24 06:39
eGFR > 60.00 11/30/24 06:39
--- NOTE | 2024-11-30 11:05 | W.DCSUMMARY ---
Discharge Summary
Discharge Data
Date of Admission: 11/26/24
Date of Discharge: 11/30/24
-
Pending Results: No
Hospital Course
Principal Diagnosis:
Acute metabolic encephalopathy due to hypoglycemia/hypotension
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
Newly diagnosed Parkinson's disease.
Chronic Diagnoses:�
History of seizure disorder
Hyperlipidemia
Dementia
Chronic diarrhea with IBS
Consultations:�
Neurology
Oncology
Procedures:�
None
Clinical course:�
This is a 89-year-old female with past medical history as stated above, who presented with confusion due to hypoglycemia and hypotension.
Problem 1:
Acute metabolic encephalopathy due to hypoglycemia/hypotension.
It has been noted that the patient's mental status alternates from periods of wakefulness/alertness to somnolence.
No infectious etiology was identified.
The patient's brain MRI showed no evidence of acute intracranial abnormality.
Her EEG showed continuous generalized slowing.
Unclear reason of her alternating mental status, but her mental status appeared to be stable and improved while in the hospital.
Problem 2:
Newly diagnosed Parkinson's disease.
She was started with Sinemet 1 tablet AC this admission by neuro.
Problem 3:
History of seizure disorder.
Patient's prior to admission Lamictal dose was increased from 150 to 200 mg twice daily.
She can continue Keppra 500 mg twice daily.
Problem 4:
Macrocytic anemia status post 2 units packed red blood cells this admission.
Her hemoglobin improved from 6.6 on admission to 10.3.
Her B12/folic acid levels were normal, iron stores are adequate.
It was noted that her copper level was low at 76 (normal level is between 80 - 155).
Her ceruloplasmin level was within normal limit at 18.
Her daughter has been advised that the patient can start taking multivitamin containing copper going forward.
As for the rest of her medical problems, they were stable during her hospital stay.
Discharge Plan
-
Patient Disposition: Group Home/SNF
Discharge Diagnosis/Procedures: Acute metabolic encephalopathy due to hypoglycemia/hypotension;
Newly diagnosed Parkinson's disease (started on Sinemet this admission);
History of seizure disorder;
Macrocytic anemia
Condition: Fair
Diet: As tolerated and Other diet
Additional Diets: soft and bite size diet
Activity: As tolerated
Driving Restrictions: As prior to admission
Activity Restrictions/Additional Instructions:
For your macrocytic anemia: Follow copper level and methylmalonic acid level that were sent from this admission.
Your ceruloplasmin level was WNL at 18
Referrals:
Carmine Giraldo MD [Family Provider] - in less than 1 week
Additional Discharge Medication Instructions: Your Lamictal dose was increased from 150 twice daily to 200 mg twice daily
Continue Keppra 500 BID
You were started with Sinemet (carbidopa/levodopa 25/100) 1 tablet before meals
Prescriptions:
New
lamotrigine 100 mg Tablet
200 mg PO BID Qty: 60 0RF
carbidopa-levodopa 25-100 mg Tablet
1 tab PO AC Qty: 30 0RF
Continued
atorvastatin 20 mg tablet
20 mg PO HS
aspirin 81 mg Tablet,Delayed Release (Dr/Ec)
81 mg PO DAILY
famotidine [Pepcid AC] 20 mg Tablet
20 mg PO BIDPRN PRN (Reason: gerd)
cholecalciferol (vitamin D3) 25 mcg (1,000 unit) Tablet
50 mcg PO DAILY
ferrous sulfate 325 mg (65 mg iron) Tablet
325 mg PO Q48H
melatonin 3 mg Tablet
3 mg PO HSPRN PRN (Reason: sleep)
levetiracetam [Keppra] 250 mg Tablet
500 mg PO BID
Premarin 0.625 mg/gram Cream
1 applic VAGINAL MOWEFR PRN (Reason: hormones)
Refresh Optive 0.5-0.9 % Drops
1 drp BOTH EYES BIDPRN PRN (Reason: dry eyes)
Discontinued
lamotrigine 150 mg tablet
150 mg PO BID
Discharge Orders:
Discharge Patient (As Directed); Ordered 11/30/24
Ordered By: Linnea Chiang
Discharge Date and Time
Print Language: K[place]IL[place]
--- NOTE | 2024-11-30 11:05 | CM ---
Addendum entered by Shaunna Tucker 11/30/24 13:01:
Auth approved beginning today, 11/30 w/ next review date of 12/06
Auth ref [id number]
Updated Ellie w/ auth info
Original Note:
Patient medically stable for d/c today. Patient requiring skilled rehab.
Per chart, patient admitted from [facility] for skilled. Per Ellie/admissions, patient's daughter did pay for a bed hold for her, confirmed this w/daughter, Yanci, as well.
COVID required prior to d/c, hospitalist ordered.
CM called -ask blue to initiate auth, spoke w/ Yaima. Request to be passed along to MD for review due to dementia reported in chart.
CM will await a call back for determination
Patient will require ambulance, forms placed on chart
IMM verbally reviewed w/ Yanci, copy on chart
[facility]
Report: [phone]

Plan: D/c to [facility] today, pending auth
--- NOTE | 2024-11-30 11:18 | PN.CDI ---
CDI
- -
CDI:
Physician Documentation Request
Admit Date: 11/26/24 04:22
Dear Doctor Андрей,
Clinical Indicators:
Patient admitted with hypoglycemia.
Height: 5 ft
Weight: 93 lbs
BMI: 18.2
11/28 Neurology PN, Physical Exam: temporal wasting diffuse muscle atrophy
11/30 note/assessment: (BMI 18.2-underweight)
If possible, please provide an associated diagnosis related to the abnormal BMI (< or = 19), such as:
Underweight
Cachectic
BMI is not significant
Other, please specify
Use of terms such as suspected, likely, concern for, or probable (associated with a specific diagnosis that is being evaluated, monitored, or treated as if it exists) are acceptable and can be coded in the inpatient setting, when documented at the
time of discharge.
Thank you,
BONITA Fair RN
CDI Specialist
available via tiger text
Please use your independent medical judgment in providing your response.
[2024-11-30 11:45] LABS: COVID-19 Antigen Negative (Negative)
[2024-11-30 11:58] VITALS: BP 146/66
[2024-11-30 12:07] LABS: Glucose - Point of Care 154 mg/dl (70-99)
[2024-11-30 15:13] VITALS: BP 133/65
[2024-11-30] MEDS: LOVENOX SC (17:00)
[2024-12-01 03:59] LABS: Albumin 2.81 g/dL (3.75-5.01); Alpha 1 Globulin 0.24 g/dL (0.19-0.46); Alpha 2 Globulin 0.38 g/dL (0.48-1.05); Free Kappa Light Chains,Quant 11.69 mg/L (3.30-19.40); Free Lambda Light Chains,Quant 8.22 mg/L (5.71-26.30); IgA 90 mg/dL (68-408); IgG 318 mg/dL (768-1632); IgM 38 mg/dL (35-263); Immunofixation Electrophoresis IFE Done; Kappa/Lambda Fr Light Ratio 1.42 (0.26-1.65); Total Protein-Electrophoresis 4.1 g/dL (6.3-8.2)
[2024-12-01 19:54] LABS: Methylmalonic Acid <0.10 umol/L (0.00-0.40)
== END 2024-11-30 19:03 | DRG 56 ==
LOC: 4 EAST ACU 04:22
PROVIDERS: Family Medicine; ADMITTING PHYSICIAN Internal Medicine; ATTENDING PHYSICIAN Internal Medicine; CONSULT PHYSICIAN Psychiatry & Neurology Clinical Neurophysiology; EMERGENCY PHYSICIAN Student in an Organized Health Care Education/Training Program; FAMILY PHYSICIAN Family Medicine; OTHER PHYSICIAN Internal Medicine Hematology & Oncology
PROC: 30233N1 Transfusion of Nonautologous Red Blood Cells into Peripheral Vein, Percutaneous Approach (ICD-10-PCS; 2024-11-26)
DX: G20.A1 Parkinson's disease without dyskinesia, without mention of fluctuations (principal); G93.41 Metabolic encephalopathy; Z68.1 Body mass index [BMI] 19.9 or less, adult; G40.109 Localization-related (focal) (partial) symptomatic epilepsy and epileptic syndromes with simple partial seizures, not intractable, without status epilepticus; D53.1 Other megaloblastic anemias, not elsewhere classified; E16.2 Hypoglycemia, unspecified; I95.9 Hypotension, unspecified; F02.80 Dementia in other diseases classified elsewhere, unspecified severity, without behavioral disturbance, psychotic disturbance, mood disturbance, and anxiety; K58.0 Irritable bowel syndrome with diarrhea; K21.9 Gastro-esophageal reflux disease without esophagitis; Z79.82 Long term (current) use of aspirin; R63.6 Underweight; E87.6 Hypokalemia; E78.00 Pure hypercholesterolemia, unspecified; Z66 Do not resuscitate; E83.42 Hypomagnesemia; Z86.73 Personal history of transient ischemic attack (TIA), and cerebral infarction without residual deficits; Z88.1 Allergy status to other antibiotic agents; Z88.2 Allergy status to sulfonamides; Z88.0 Allergy status to penicillin; D75.89 Other specified diseases of blood and blood-forming organs; R62.7 Adult failure to thrive; M41.9 Scoliosis, unspecified; Z79.899 Other long term (current) drug therapy; Z90.710 Acquired absence of both cervix and uterus; Z11.52 Encounter for screening for COVID-19
CPT/HCPCS: 70450; 70553; 71045; 80048; 80053; 82390; 82525; 82607; 82728; 82746; 82784; 82962; 83010; 83521; 83540; 83550; 83690; 83735; 83921; 84100; 84155; 84165; 84443; 85025; 85027; 85045; 86334; 86850; 86900; 86901; 86920; 87811; 92526; 92610; 93005; 95816; 97110; 97163; 97167; 97530; 99291; A9575; C9254; P9016

== ENCOUNTER 2024-12-16 09:17 | Emergency (ER) | payer OTHER, SELFPAY ==
[2024-12-16] VITALS (7 sets, daily range): BP systolic 140–175; BP diastolic 56–74
[2024-12-16 09:41] LABS: Glucose - Point of Care 109 mg/dl (70-99)
[2024-12-16 09:53] LABS: Venous Blood Gas B.E. 5.2 mmol/L (-4 to +4); Venous Blood Gas HCO3 29.9 mmol/L (22-27); Venous Blood Gas O2 Sat % 99.6 %; Venous Blood Gas pCO2 44 mmHg (35-48); Venous Blood Gas pH 7.44 (7.32-7.43); Venous Blood Gas pO2 199 mmHg (30-50)
[2024-12-16 09:54] LABS: % Basophils 0.8 % (0-2); % Eosinophils 1.9 % (0-6); % Immature Granulocytes 0.5 % (0-0.5); % Lymphocytes 16.8 % (20.5-51.1); Absolute Basophils 0.1 10^3/uL (0-0.2); Absolute Eosinophils 0.1 10^3/uL (0-0.7); Absolute Lymphocytes 1.1 10^3/uL (1.2-3.4); Absolute Monocytes 0.4 10^3/uL (0.1-0.6); Absolute Neutrophils 4.7 10^3/uL (1.4-6.5); Hematocrit 27.9 % (37.0-47.0); Hemoglobin 9.4 g/dL (12.0-16.0); Mean Corp Hgb Conc. 33.7 g/dL (33.0-37.0); Mean Corpuscular Hgb 34.6 pg (27.0-31.0); Mean Corpuscular Volume 102.6 fL (81.0-99.0); Mean Platelet Volume 10.1 fL (7.4-10.4); Nucleated Red Blood Cells % 0.3 %; Platelet Count 293 10^3/uL (130-400); Red Blood Cell Count 2.72 10^6/uL (4.20-5.40); Red Cell Dist. Width 19.7 % (11.5-14.5); White Blood Cell Count 6.3 10^3/uL (4.8-10.8)
--- NOTE | 2024-12-16 09:56 | ED.GENMED ---
History of Present Illness
General
Chief Complaint: Unresponsive
Source: ambulance crew
Time Seen by Provider: 12/16/24 09:41
History of Present Illness
History of Present Illness:
89-year-old female sent to the emergency room from [facility] where she was found to be unresponsive. senior living records indicate the patient's baseline is forgetful but typically awake and alert. Patient was completely unresponsive even to
sternal rub for nursing upon first arrival. For however during my evaluation shortly thereafter the patient is starting to answer simple questions. She answers slowly but seems appropriate. She is complaining of a headache.
Past History
Past History
ED Past Medical History: CVA (Left frontoparietal ischemic stroke March 2023), GERD, Seizures (On Kepra) and Other (Scoliosis, osteoporosis, iron deficiency anemia)
ED Past Surgical History: Appendectomy, Gynecological (Hysterectomy) and Orthopedic
Social History
Tobacco: Non-smoker
Alcohol: None
Drug: None
Living: senior care
Family History
Family History: Other (Reviewed and noncontributory)
Phy Exam
Physical Exam
Physical Exam:
General: Sleepy but arousable. Slow to answer
Vitals: unremarkable
Head: Atraumatic
Eyes: Pupils equal, EOMI
Throat: Airway intact, no exudates, dry mucosa
Neck: Trachea midline
Lungs: Clear and equal b/l
Heart: Regular rate, no murmurs
Abd: Soft, Nontender, No pulsatile mass
Neuro: Cranial nerves intact, muscle strength equal bilaterally
Skin: Warm, dry, no rash
Extremities: pulses equal b/l, no edema
Course
Orders/Labs/Results
Orders:
Orders
12/16/24 09:28
Electrocardiogram (*1) Urgent
Reason for Study: Chest Pain
EKG- Treatment ONCE
12/16/24 09:41
Complete Blood Count/With Diff Urgent
Comprehensive Metabolic Panel Urgent
12/16/24 09:45
Venous Blood Gas Urgent
%Oxygen/Room Air: 98/2L NC
12/16/24 09:49
CT Head W/o Iv Contrast Urgent
Comment:
Reason For Exam: altered mental status
Straight cath- Treatment ONCE
12/16/24 09:57
EEG [Rapid Point of Care EEG (ED/ICU ONLY)] Q1H
Indications for use:: Altered Mental Status
12/16/24 10:01
0.9% Sodium Chloride 500 ml [Nss] 500 ml IV BOLUS
12/16/24 11:00
Lacosamide [Vimpat] 50 mg PO BID
12/16/24 11:02
Urinalysis Reflex To Culture Urgent
Date Specimen was Collected: 12/16/24
Time Specimen was Collected: 09:57
Urine Microscopic Reflex Cult Urgent
Urine Culture Urgent
EMMA Source: U
Specimen Description:
Date Specimen was Collected: 12/16/24
Time Specimen was Collected: 09:57
12/16/24 13:03
NEUROLOGY CONSULT Urgent
Consulting Provider: Fidencio Salgado
Was physician already notified: Yes
12/16/24 13:48
Lacosamide [Vimpat] 100 mg PO NOW STA
12/16/24 20:00
Lacosamide [Vimpat] 150 mg PO BID
Abnormal Lab Results
12/16/24 12/16/24 12/16/24
09:36 09:41 09:45
RBC 2.72 L 10^6/uL
(4.20-5.40)
Hgb 9.4 L g/dL
(12.0-16.0)
Hct 27.9 L %
(37.0-47.0)
MCV 102.6 H fL
(81.0-99.0)
MCH 34.6 H pg
(27.0-31.0)
RDW 19.7 H %
(11.5-14.5)
Absolute Lymphs (auto) 1.1 L 10^3/uL
(1.2-3.4)
Lymphocytes % 16.8 L %
(20.5-51.1)
VBG pH 7.44 H
(7.32-7.43)
VBG pO2 199 H mmHg
(30-50)
VBG HCO3 29.9 H mmol/L
(22-27)
Glucose 101 H mg/dl
(70-99)
Total Bilirubin 1.6 H mg/dl
(0.2-1.3)
Total Protein 5.4 L g/dl
(6.3-8.2)
Leukocyte Esterase Rfl
Urine Bacteria (Reflex)
Urine Albumin (Reflex)
POC Glucose 109 H mg/dl
(70-99)
12/16/24
11:02
RBC
Hgb
Hct
MCV
MCH
RDW
Absolute Lymphs (auto)
Lymphocytes %
VBG pH
VBG pO2
VBG HCO3
Glucose
Total Bilirubin
Total Protein
Leukocyte Esterase Rfl 1+ A
(Negative)
Urine Bacteria (Reflex) Many A
(Negative)
Urine Albumin (Reflex) 2+ A
(Neg - Trace)
POC Glucose
12/16/24 09:41
12/16/24 09:41
Vital Signs
Initial and Last Documented VS:
Initial Vital Signs
Temp Pulse Resp BP Pulse Ox
98.1 F 87 20 175/63 92
12/16/24 09:24 12/16/24 09:24 12/16/24 09:24 12/16/24 09:24 12/16/24 09:24
Last Documented Vital Signs
Temp Pulse Resp BP Pulse Ox
98.1 F 78 21 140/61 94
12/16/24 09:24 12/16/24 12:00 12/16/24 12:00 12/16/24 12:00 12/16/24 12:00
MDM/Problems Addressed
Differential Diagnosis Includes:
Seizure, intracranial bleed, renal failure, electrode abnormality, medication effect
MDM/Problems Addressed:
Patient presents after being found unresponsive at her facility. Recent hospitalization chart reviewed. Patient had an EEG which was positive for some nonconvulsive seizure activity. Patient has a known history of seizures and is on
antiepileptics. Initially patient was unresponsive but by the time I saw her she was starting to come around. A bedside POC EEG was obtained which did not show evidence of status epilepticus. Patient observed for prolonged period of time and her
mental status is similarly back to her baseline. Patient [place] residing [place] [facility] for [facility] therapy and rehab. Therefore think is reasonable for her to be discharged back to that facility. Patient was evaluated by neurology
here in the emergency room. They recommend initiation of lacosamide. Patient given a dose here and will discharge her on it.
*Radiology
Radiology exam reviewed: radiology read reviewed
*Pulse Oximetry
Patient hypoxic: no
*EKG
Interpreted by ED Provider?: Yes
Comparison EKG: no changes
Heart Rate: 81
Rate: normal
Rhythm: sinus
[place]berry: normal axis
Interval: normal interval
QRS Pattern: normal QRS
Ischemia: no ischemia
*Policy Officer Interpretation
Rate: normal
Interpretation: normal
Heart Rate: 81
Rhythm: sinus
*Critical Care Note
Total Time (30-74mins, 75-104mins- exclusive of procedures): Not Applicable
ED Attending Note
-
Portions of this chart may have been created with voice recognition software.� Occasional wrong word or��sound alike� substitutions may have occurred due to the inherent limitations of voice recognition software.
Discharge Plan
Departure
Patient Disposition: Intermediate/SNF
Date of Disposition: 12/16/24
Time of Disposition: 14:01
Condition: Fair
Discharge Problem:
Seizure
Instructions: Seizures
Prescriptions:
New
lacosamide 100 mg tablet
100 mg PO BID Qty: 60 0RF
No Action
atorvastatin 20 mg tablet
20 mg PO HS
aspirin 81 mg Tablet,Delayed Release (Dr/Ec)
81 mg PO DAILY
famotidine [Pepcid AC] 20 mg Tablet
20 mg PO BIDPRN PRN (Reason: gerd)
cholecalciferol (vitamin D3) 25 mcg (1,000 unit) Tablet
50 mcg PO DAILY
melatonin 3 mg Tablet
3 mg PO HSPRN PRN (Reason: sleep)
levetiracetam [Keppra] 250 mg Tablet
500 mg PO BID
Premarin 0.625 mg/gram Cream
1 applic VAGINAL MOWEFR PRN (Reason: hormones)
Refresh Optive 0.5-0.9 % Drops
1 drp BOTH EYES BIDPRN PRN (Reason: dry eyes)
lamotrigine 100 mg Tablet
200 mg PO BID Qty: 60 0RF
carbidopa-levodopa 25-100 mg Tablet
1 tab PO AC Qty: 30 0RF
acetaminophen 325 mg Tablet
650 mg PO Q4HPRN PRN (Reason: pain)
magnesium hydroxide [Milk of Magnesia] 400 mg/5 mL Suspension
30 ml PO DAILY PRN (Reason: CONSTIPATION)
bisacodyl [Dulcolax (bisacodyl)] 10 mg Suppository
10 mg MI DAILY PRN (Reason: constipation)
Fleet Enema 19-7 gram/118 mL Enema
118 ml MI PRN PRN (Reason: CONSTIPATION)
Referrals:
Fidencio Salgado MD [Active, Neurology]
Carmine Giraldo MD [Family Provider, Family Practice]
Activity Restrictions/Additional Instructions:
I believe Ms. Zelaya's altered mental status was related to a seizure. She was seen by neurology and a new medication, lacosamide, was ordered.
Interventions
Interventions:
*Risk Screen - Suicide Last Done: 12/16/24 09:24
*General Assessment Last Done: 12/16/24 09:24
*Neglect/Abuse Screening Last Done: 12/16/24 09:24
*ED COVID-19 Vaccine History Last Done: 12/16/24 09:30
ED- Neurological Assessment Last Done: 12/16/24 09:30
Discharge Date and Time
Print Language: WELSH
[2024-12-16 10:07] LABS: ALT (SGPT) 24 U/L (0-35); AST (SGOT) 32 U/L (14-36); Albumin 3.6 g/dl (3.5-5.0); Alkaline Phosphatase 80 U/L (38-126); Blood Urea Nitrogen 14 mg/dl (7-17); Calcium 8.9 mg/dl (8.4-10.2); Carbon Dioxide 30 mmol/L (22-30); Chloride 107 mmol/L (98-107); Glucose 101 mg/dl (70-99); Potassium 3.9 mmol/L (3.5-5.1); Sodium 140 mmol/L (135-145); Total Bilirubin 1.6 mg/dl (0.2-1.3); Total Protein 5.4 g/dl (6.3-8.2); eGFR > 60.00
[2024-12-16 11:08] LABS: Urine Albumin 2+ (Neg - Trace); Urine Bilirubin Negative (Negative); Urine Character Slightly Cloudy (Clear); Urine Color Yellow; Urine Glucose Negative (Negative); Urine Ketone Negative (Negative); Urine Leukocyte 1+ (Negative); Urine Nitrite Negative (Negative); Urine Occult Blood Negative (Negative); Urine Urobilinogen Negative (Neg - 1+)
[2024-12-16] MEDS: NSS 500 IV (11:09)
[2024-12-16] MEDS: VIMPAT 50 MG PO (11:10)
[2024-12-16 11:33] LABS: Urine Amorphous Seen; Urine Red Blood Cell 0-2 /HPF (0-2)
[2024-12-16 11:34] LABS: Urine Bacteria Many (Negative)
--- NOTE | 2024-12-16 12:56 | CON.NEURO4 ---
Addendum entered and electronically signed by Fidencio Salgado MD 12/16/24 14:37:
Studies reviewed.
I have personally examined the patient. I reviewed and agree with the PIPE LAYER's Note.
My addenda:
Awake interactive. No acute distress.
Speech with reduced output, hypophonic.
Follows 2-step requests w/ difficulty. No tremor.
Extra-ocular movements grossly intact.
Facial movements full and symmetric. Hearing intact to normal conversational volume.
Normal UE movements bilaterally.
Neck: full ROM.
Chest: no dyspnea
Heart: no JVD
Ext: (-) Clubbing, (-) Cyanosis, (-) Edema
IMPRESSIONS/RECOMMENDATIONS:
Abrupt onset of recurrent unresponsiveness
Differential diagnosis includes intractable epilepsy. The patient may also be experiencing transient unresponsiveness of the elderly which is a rule out diagnosis
Increase lacosamide dosing from 100 mg twice a day to dosing of 150 mg twice a day
Continue lamotrigine 200 mg twice a day
For now maintain carbidopa/levodopa 1 tablet 3 times a day (1 hour before meals)
Continue aspirin due to prior history of stroke
D/W patient / family / nursing
All questions answered.
Will continue to follow as outpatient.
Original Note:
Consultation - Neurology 4
-
CONSULTING PHYSICIAN: Fidencio Salgado MD
REFERRING PHYSICIAN: ER/Dr. Castellano
DICTATED BY: RAMIN Gamboa
DATE/TIME OF REQUEST: 12/16/24
DATE/TIME OF CONSULTATION: 12/16/24
Reason for Consultation: Unresponsive episode
History of Present Illness:
This is an 89-year-old female who has presented to the hospital with report of unresponsiveness. Patient is well known to our Neurology service and is followed by us as an outpatient for epilepsy, stroke, and cognitive impairment.
From previous outpatient encounters by Neurology Dr. Ward and RAMIN Cabrera:
'01/2024 Provider: JTA�Patient is 88 year old woman with epilepsy, ischemic stroke off left parietal lobe, cerebral small vessel disease, PVD,�presenting for follow up. The patient had had 2 hospitalizations on 12/28 for a fall and encephalopathy and
she had signs of subtle seizure activity for myself in the hospital, unclear on if a seizure precipitated fall or not.� EEG studies did not show any seizure activity after treatment with lorazepam, no serious metabolic derangements. Was discharged
01/01 on� Keppra 250mg AM/500 mg PM, Lamotrigine 250 mg qd.
Had a 2nd hospitalization for fatigue and confusion she was admitted to rehab.� She had been started on Klonopin for anxiety.� Mental status thought most likely due to the addition of Klonopin, had decrease in seizure medications to Keppra 500
qhs and Lamotrigine 150 mg BID.
She is showing some continued confusion. She is in a rehab/SNF.� She had her pass away recently January 15.
08/25/2024
Patient seen today in the office with her daughter. Since her last appointment they have not seen any overt seizure activity. She did have an EEG on 05/03/2024 which was severely abnormal due to frequent nonconvulsive seizures on 3 occasions during
the study. She had been on Lamictal 150 mg twice a day as well as Keppra 500 mg at night. I did speak with them and recommending increasing her Keppra to 500 mg twice a day after 1 week of 250 mg in a.m. and 500 mg in p.m. She did start 250 mg in
a.m. and 500 mg in p.m. but did not advance to 500 mg twice a day. She does not seem to have any adverse side effects medications. They did attempt to get the lamotrigine level drawn however the lab draw the incorrect tube and we were not notified
that this lab was not completed.� She has not had any falls or hallucinations. Her daughter is still concerned she is having some memory decline.� Patient still feels her memory has been stable.
(04/28/2024)
Pt seen in the office today with her daughter. She has been seizure-free since her last appointment. XCOPRI copay was over $2000.00 there for she has remained on Keppra 500 mg at bedtime and lamotrigine 150 mg twice a day. She had not had any
increased agitation. She has not had any new stroke symptoms. Daughter is concerned that her memory may have declined recently. She often asks questions repeatedly.
Today 10/29/2024
Patient seen in the office today with her daughter. She denies any noticeable seizure activity. She is tolerating lamotrigine 150mg twice a day and levetiracetam 500mg AM/500mg PM.
She had a repeat EEG on 09/07/24 that was unremarkable for age.
Memory has been stable.
Her PCP is looking into her hemoglobin trending down.'
Patient was most recently evaluated by our inpatient Neurology service in November 2024 at which time she had come to the ER unresponsive with a systolic blood pressure of 60 and a blood sugar of 40. MRI brain and EEG were unremarkable. Her lamotrigine
was increased from 150mg to 200mg twice a day, Keppra 500mg twice a day was continued. She was also started on Sinemet 25/100 three times a day due to concern of Parkinson's disease.
This morning (12/16/24), patient was found unresponsive at [facility]. On arrival in the ER she started to answer simple questions but was slow to respond and complained of a headache. CT head was obtained and is negative for any acute
abnormalities. Ceribell monitor was applied and demonstrated no evidence of status epilepticus. Patient reports that she thinks she 'passed out' this morning but cannot recall any other details leading to her arrival in the ER. She denies dizziness,
vision changes, speech/swallow difficulty, numbness, and focal weakness.
Past Medical History: Epilepsy, left frontoparietal ischemic stroke 03/2023, cognitive impairment, PVD, GERD, osteoporosis, iron deficiency anemia, IBS, scoliosis
Surgical History: HAILY/BSO, cholecystectomy, appendectomy, R ISHAN, R shoulder surgery
Family History: Reviewed and noncontributory.
Social History: Denies tobacco, alcohol, and illicit drug use.
Allergies: See below.
Home Medications: See below.
Review of Symptoms:
Patient denies any fever, headache, chest pain, shortness of breath, GI or symptoms.
�Per the HPI.�All systems are reviewed negative except above.
Physical Exam:
The patient is cachectic, abdomen is nondistended, breathing is unlabored, skin is warm and dry, no edema.
Neurologic Examination:
The patient is awake, alert and oriented x 3. She is able to follow commands and answer questions appropriately. There is no aphasia or dysarthria. On cranial nerve assessment, pupils are 3 mm bilateral, round and reactive to light and
accommodation. Visual salvador are full. Extraocular movements are intact. Facial sensations are intact and bilaterally symmetrical, there is no facial asymmetry. Hearing is intact bilaterally to normal conversation volume. Tongue palate and uvula
are midline. Sternocleidomastoid strengths are full bilaterally. Motor strengths are 5/5 bilateral upper and lower extremities on medical research [place] scale. There is no drift or involuntary movement noted. Deep tendon reflexes are 2+ bilateral
upper and lower extremities and Babinski is absent bilaterally. Sensations of pain, touch, temperature and vibration are intact and bilaterally symmetrical. There was no extinction noted on double simultaneous stimulation. Coordination is intact by
finger to nose bilaterally.
Lab Results: See below.
Neuro Imaging:
1. CT Head 12/16/24: No acute intracranial abnormality identified.
2. Ceribell Rapid EEG 12/16/24: No evidence of status epilepticus
Differentials for the patient's presentation include:
1. Change in mental status; unclear etiology, likely breakthrough seizure activity vs orthostasis, or metabolic disturbance.
Patient has the following risk factors for their symptoms: Epilepsy, age
Recommendations:
-Add lacosamide 100mg twice a day.
-Continue lamotrigine 200mg twice a day.
-Continue levetiracetam 500mg twice a day.
-Follow-up with Neurology as an outpatient in the next week.
Discussed patient care with: Dr. Salgado, the patient
Vital Signs and Labs
-
Vital Signs and Labs:
Vital Signs
Temp Pulse Resp BP Pulse Ox
98.1 F 78 21 140/61 94
12/16/24 09:24 12/16/24 12:00 12/16/24 12:00 12/16/24 12:00 12/16/24 12:00
Lab Results
12/16/24 09:41
12/16/24 09:41
Sodium 140 mmol/L (135-145) 12/16/24 09:41
Potassium 3.9 mmol/L (3.5-5.1) 12/16/24 09:41
BUN 14 mg/dl (7-17) 12/16/24 09:41
Glucose 101 mg/dl (70-99) H 12/16/24 09:41
Calcium 8.9 mg/dl (8.4-10.2) 12/16/24 09:41
Medications
-
Active Medications
Generic Name Dose Route Start Last Admin
Trade Name Freq PRN Reason Stop Dose Admin
Lacosamide 50 mg 12/16/24 11:00 12/16/24 11:10
Lacosamide (Vimpat) 50 Mg Tablet PO 01/13/25 10:59 50 mg
BID ERASTO Administration
Lacosamide 100 mg 12/16/24 13:48
Lacosamide (Vimpat) 100 Mg Tablet PO 12/16/24 13:49
NOW STA
Lacosamide 100 mg 12/16/24 20:00
Lacosamide (Vimpat) 100 Mg Tablet PO 01/13/25 19:59
BID ERASTO
Home Medications
�Medication �Instructions �Recorded
atorvastatin 20 mg tablet 20 mg PO HS High Cholesterol 04/03/23
aspirin 81 mg tablet,delayed 81 mg PO DAILY Blood Clot 12/29/23
release Prevention/Tx
cholecalciferol (vitamin D3) 25 50 mcg PO DAILY Supplement 12/29/23
mcg (1,000 unit) tablet
famotidine 20 mg tablet (Pepcid AC) 20 mg PO BIDPRN PRN gerd 12/29/23
carboxymethylcellulose 0.5 1 drp BOTH EYES BIDPRN PRN dry eyes 11/23/24
%-glycerin 0.9 % eye drops
(Refresh Optive)
conjugated estrogens 0.625 mg/gram 1 applic vaginal MOWEFR PRN 11/23/24
vaginal cream (Premarin) hormones
levetiracetam 250 mg tablet 500 mg PO BID Seizures 11/23/24
(Keppra)
melatonin 3 mg tablet 3 mg PO HSPRN PRN sleep 11/23/24
carbidopa 25 mg-levodopa 100 mg 1 tab PO AC #30 tabs 11/30/24
tablet
lamotrigine 100 mg tablet 200 mg (2 x 100 mg) PO BID #60 tabs 11/30/24
acetaminophen 325 mg tablet 650 mg PO Q4HPRN PRN pain 12/16/24
bisacodyl 10 mg rectal suppository 10 mg MN DAILY PRN constipation 12/16/24
(Dulcolax (bisacodyl))
magnesium hydroxide 400 mg/5 mL 30 ml PO DAILY PRN CONSTIPATION 12/16/24
oral suspension (Milk of Magnesia)
sodium phosphates 19 gram-7 118 ml MN PRN PRN CONSTIPATION 12/16/24
gram/118 mL enema (Fleet Enema)
Allergies
-
Allergies
Allergy/AdvReac Type Severity Reaction Status Date / Time
bacitracin Allergy Unknown Verified 12/16/24 09:27
erythromycin base Allergy Unknown Verified 12/16/24 09:27
Gramicidins Allergy Unknown Verified 12/16/24 09:27
iodine Allergy Unknown Verified 12/16/24 09:27
neomycin Allergy Unknown Verified 12/16/24 09:27
Penicillins Allergy patient Verified 12/16/24 09:27
states she
gets mouth
swelling
with
penicillin
polymyxin B Allergy Unknown Verified 12/16/24 09:27
povidone-iodine Allergy Unknown Verified 12/16/24 09:27
soap Allergy Unknown Verified 12/16/24 09:27
Sulfa (Sulfonamide Allergy Unknown Verified 12/16/24 09:27
Antibiotics)
sulfamethoxazole Allergy Unknown Verified 12/16/24 09:27
tetracycline Allergy Unknown Verified 12/16/24 09:27
trimethoprim Allergy Unknown Verified 12/16/24 09:27
--- NOTE | 2024-12-16 13:40 | W.RAPID.EEG ---
Rapid EEG
-
Procedure Date: 12/16/24
Results:
Point of Care EEG Procedure Note
No evidence of status epilepticus
Patient name: MT BACH
Medical ID: [id number]
Date of : 1935
Age: 89
Recording 1 Duration: 2024-12-16 10:31:40 - 2024-12-16 11:08:04
Recording Total Time: 00:36:24 (36 minutes)
Ordering Physician: DR VELEZ
Recording Technique: This EEG was obtained using a 10 lead, 8 channel circumferential rapid EEG with no parasagittal coverage.
Performed with King French Status Epilepticus Monitor, ICD-10 IA80I15
Clinical History: MT BACH is a 89 year old Prior Seizure patient undergoing EEG to screen for non-convulsive status epilepticus.
Primary Indication: Prior Seizure
Location: ED
Background: The background was continuous, variable and reactive
Report prepared by: N/A
[2024-12-16] MEDS: VIMPAT 100 MG PO (15:17)
== END 2024-12-16 17:40 ==
LOC: EMR 09:17
PROVIDERS: CONSULT PHYSICIAN Psychiatry & Neurology Neurology; EMERGENCY PHYSICIAN Emergency Medicine; FAMILY PHYSICIAN Family Medicine
DX: G40.909 Epilepsy, unspecified, not intractable, without status epilepticus (principal); Z86.73 Personal history of transient ischemic attack (TIA), and cerebral infarction without residual deficits; I73.9 Peripheral vascular disease, unspecified; Z79.899 Other long term (current) drug therapy
CPT/HCPCS: 99285; 70450; 80053; 81003; 81015; 82805; 82962; 85025; 87077; 87086; 93005